=== PATIENT | female | born 1955 | race Two or more races ===

== ENCOUNTER 2022-12-07 10:57 | Emergency (ER) | payer OTHER ==
[~2022-12-07] VITALS: Ht 170.2 cm; Wt 60.2 kg
[2022-12-07 12:22] LABS: Albumin 3.2 g/dL (3.4-5.0); Calcium 9.8 mg/dL (8.5-10.1); Potassium 3.3 mmol/L (3.5-5.1)
[2022-12-07 12:23] LABS: Basophils # (auto) 0 10 ^3/uL (0-0.2); Basophils % (auto) 0.3 % (0.0-2.0); Eosinophils # (auto) 0.1 10 ^3/uL (0-0.8); Eosinophils % (auto) 1.1 % (0.0-7.0); Hematocrit 24.5 % (36.0-46.0); Hemoglobin 8.5 g/dL (12.2-16.2); Lymphocytes # (auto) 1.7 10 ^3/uL (0.4-5.4); Lymphocytes % (auto) 20.7 % (10.0-50.0); Mean Corpuscular Hgb Conc. 34.6 g/dL (32.0-36.0); Mean Corpuscular Volume 80.9 fL (80.0-100.0); Monocytes # (auto) 0.4 10 ^3/uL (0-1.3); Monocytes % (auto) 5.3 % (0.0-12.0); Neutrophils # (auto) 5.9 10 ^3/uL (1.6-8.6); Neutrophils % (auto) 72.6 % (37.0-80.0); Red Blood Cells 3.02 10^6/uL (4.0-5.20); Red Cell Distribution Width 15.8 % (11.8-14.3); White Blood Cell 8.1 10^3/uL (4.4-10.8)
[2022-12-07 12:34] LABS: BUN/Creatinine Ratio 20.3 (10.0-20.0); Bilirubin, Total 0.3 mg/dL (0.2-1.0); Total Protein 7.2 g/dL (6.4-8.2)
[2022-12-07] MEDS ORDERED: POTASSIUM EFFERVESENT TAB 25 MEQ PO ONE (13:00)
[2022-12-07 14:42] VITALS: BP 136/75
== END 2022-12-07 14:44 | disposition admitted as inpatient to this hospital (09) ==
LOC: ER 10:57
DX: D64.9 Anemia, unspecified (principal); E78.5 Hyperlipidemia, unspecified; I10 Essential (primary) hypertension; Z86.2 Personal history of diseases of the blood and blood-forming organs and certain disorders involving the immune mechanism
CPT/HCPCS: 36415; 80053; 84484; 85025; 93005

== ENCOUNTER 2023-02-14 10:08 | Inpatient (IN) | payer OTHER ==
[2023-02-14] VITALS (9 sets, daily range): BP systolic 99–138; BP diastolic 41–66; PULSE 66–88; RESP 16–33; TEMP 97.6–98.4; O2SAT 97
[~2023-02-14] VITALS: Ht 170.2 cm; Wt 59.0 kg
[2023-02-14 10:58] LABS: Basophils # (auto) 0 10 ^3/uL (0-0.2); Eosinophils # (auto) 0 10 ^3/uL (0-0.8); Hematocrit 18.7 % (36.0-46.0); Mean Corpuscular Hgb Conc. 34.1 g/dL (32.0-36.0); Monocytes # (auto) 0.3 10 ^3/uL (0-1.3); Neutrophils # (auto) 5.9 10 ^3/uL (1.6-8.6); Red Blood Cells 2.26 10^6/uL (4.0-5.20)
[2023-02-14 11:01] LABS: Basophils % (auto) 0.2 % (0.0-2.0); Eosinophils % (auto) 0.4 % (0.0-7.0); Lymphocytes # (auto) 1.8 10 ^3/uL (0.4-5.4); Lymphocytes % (auto) 22.1 % (10.0-50.0); Mean Corpuscular Hemoglobin 28.1 pg (28.0-32.0); Mean Corpuscular Volume 82.6 fL (80.0-100.0); Monocytes % (auto) 3.3 % (0.0-12.0); Red Cell Distribution Width 15.2 % (11.8-14.3)
[2023-02-14 11:19] LABS: Alanine Aminotransferase 112 U/L (7-40); Albumin 3.9 g/dL (3.2-4.8); Alkaline Phosphatase 163 U/L (46-116); Anion Gap 4.2 (5-15); Aspartate Aminotransferase 42 U/L (13-40); BUN/Creatinine Ratio 16.2 (10.0-20.0); Bilirubin, Total 0.4 mg/dL (0.2-1.0); Blood Urea Nitrogen 12 mg/dL (9-23); Calcium 9.9 mg/dL (8.5-10.1); Carbon Dioxide 25.8 mmol/L (20-30); Chloride 109 mmol/L (98-107); Glucose 105 mg/dL (74-106); Potassium 3.2 mmol/L (3.5-5.1); Sodium 139 mmol/L (136-145); Total Protein 7.5 g/dL (5.7-8.2)
[2023-02-14 11:33] LABS: Hemoglobin 6.4 g/dL (12.2-16.2)
[2023-02-14] MEDS ORDERED: POTASSIUM CHL 20 Meq TABLET PO ONE (12:00)
[2023-02-14] MEDS ORDERED: PANTOPRAZOLE 40 MG/10 ML VIAL INJ IV ONE (12:00)
[2023-02-14] MEDS ORDERED: MORPHINE SULFATE INJ 2 MG/ml SYRG IV PRN (15:00)
[2023-02-14] MEDS ORDERED: ONDANSETRON HCL 4 MG/2 ML VIAL IV PRN (15:00)
[2023-02-14] MEDS ORDERED: DOCUSATE SOD 100 MG CAP PO PRN (15:00)
[2023-02-14] MEDS: SODIUM CHLORIDE 0.9% 1,000 ML IV SCH (15:14)
[2023-02-14 16:19] LABS: Hematocrit 16.1 % (36.0-46.0)
[2023-02-14 16:49] LABS: Hemoglobin 5.6 g/dL (12.2-16.2)
[2023-02-15] VITALS: BP 145/67; PULSE 75; RESP 16; TEMP 98.5
[2023-02-15] MEDS: SODIUM CHLORIDE 0.9% 1,000 ML IV SCH ×3 (02:20→16:00)
[2023-02-15 02:24] LABS: Hematocrit 23.4 % (36.0-46.0)
[2023-02-15 06:17] LABS: Basophils # (auto) 0 10 ^3/uL (0-0.2); Basophils % (auto) 0.3 % (0.0-2.0); Eosinophils # (auto) 0.1 10 ^3/uL (0-0.8); Eosinophils % (auto) 1.6 % (0.0-7.0); Hematocrit 25.5 % (36.0-46.0); Hemoglobin 8.7 g/dL (12.2-16.2); Lymphocytes # (auto) 2.7 10 ^3/uL (0.4-5.4); Lymphocytes % (auto) 34.9 % (10.0-50.0); Mean Corpuscular Hemoglobin 29.3 pg (28.0-32.0); Mean Corpuscular Hgb Conc. 34.3 g/dL (32.0-36.0); Mean Corpuscular Volume 85.4 fL (80.0-100.0); Monocytes # (auto) 0.4 10 ^3/uL (0-1.3); Monocytes % (auto) 4.9 % (0.0-12.0); Neutrophils # (auto) 4.5 10 ^3/uL (1.6-8.6); Neutrophils % (auto) 58.3 % (37.0-80.0); Red Blood Cells 2.99 10^6/uL (4.0-5.20); Red Cell Distribution Width 14.1 % (11.8-14.3); White Blood Cell 7.6 10^3/uL (4.4-10.8)
[2023-02-15 07:36] LABS: Erythrocyte Sedimentation Rate 37 mm/hr (0-20)
[2023-02-15 07:38] LABS: Alanine Aminotransferase 100 U/L (7-40); Albumin 3.5 g/dL (3.2-4.8); Alkaline Phosphatase 147 U/L (46-116); Anion Gap 7.9 (5-15); Aspartate Aminotransferase 45 U/L (13-40); BUN/Creatinine Ratio 17.9 (10.0-20.0); Bilirubin, Total 0.4 mg/dL (0.2-1.0); Blood Urea Nitrogen 12 mg/dL (9-23); Calcium 9.3 mg/dL (8.5-10.1); Carbon Dioxide 22.1 mmol/L (20-30); Chloride 111 mmol/L (98-107); Glucose 106 mg/dL (74-106); Potassium 3.4 mmol/L (3.5-5.1); Sodium 141 mmol/L (136-145); Total Protein 6.6 g/dL (5.7-8.2)
[2023-02-15 07:40] LABS: % Iron Saturation 74.6 % (15-50)
[2023-02-15 08:00] VITALS: PULSE 76; RESP 16; O2SAT 98
[2023-02-15 10:27] VITALS: BP 161/82; PULSE 65; RESP 18; TEMP 97.8; O2SAT 99
[2023-02-15] MEDS ORDERED: ROSU1TAB14 PO (10:54)
[2023-02-15] MEDS ORDERED: PANT40T PO (10:54)
[2023-02-15] MEDS ORDERED: AMLO1TAB23 PO (10:54)
[2023-02-15] MEDS ORDERED: POTA-180 PO (10:54)
[2023-02-15] MEDS ORDERED: DEFE1TAB3 PO (10:54)
[2023-02-15] MEDS ORDERED: LISI10TA34 PO (10:54)
[2023-02-15] MEDS ORDERED: TIZA-326 PO (10:54)
[2023-02-15] MEDS ORDERED: POTASSIUM CHL 20 Meq TABLET PO ONE (11:45)
[2023-02-15 12:58] VITALS: BP 147/81; PULSE 67; RESP 16; TEMP 98.4; O2SAT 99
[2023-02-15 16:08] VITALS: TEMP 36.9
[2023-02-15 23:37] LABS: Ferritin > 1650.0 ng/mL (10-291)
[2023-02-15 23:53] LABS: Folate (Folic Acid) 3.35 ng/mL (>5.38)
[2023-02-17 07:06] LABS: Thyroxine (T4) 6.9 ug/dL (4.5-12.0)
== END 2023-02-15 17:25 | disposition home or self-care (01) | DRG 812 ==
LOC: ER 10:08 → TELE 15:02 → TELE-WESTW 02-15 10:19
PROVIDERS: ADMIT Nurse Practitioner Family; ATTEND Nurse Practitioner Family
PROC: 30233N1 Transfusion of Nonautologous Red Blood Cells into Peripheral Vein, Percutaneous Approach (ICD-10-PCS; principal; 2023-02-14)
DX: D62 Acute posthemorrhagic anemia (principal); E78.00 Pure hypercholesterolemia, unspecified; E87.6 Hypokalemia; F17.200 Nicotine dependence, unspecified, uncomplicated; I10 Essential (primary) hypertension; R74.01 Elevation of levels of liver transaminase levels; Z71.6 Tobacco abuse counseling; Z90.710 Acquired absence of both cervix and uterus; Z85.79 Personal history of other malignant neoplasms of lymphoid, hematopoietic and related tissues
CPT/HCPCS: 36415; 36430; 71045; 80053; 82607; 82728; 82746; 82962; 83010; 83540; 83550; 83615; 84436; 84443; 85014; 85018; 85025; 85045; 85652; 86850; 86880; 86900; 86901; 86920; 87081; 93005; 96374; 99291; C9113; G0378; J1642

== ENCOUNTER 2023-03-15 13:13 | Inpatient (IN) | payer OTHER ==
[2023-03-15] VITALS (8 sets, daily range): BP systolic 135–144; BP diastolic 64–78; PULSE 81–90; RESP 14–24; TEMP 97.8–98.2; O2SAT 96–99
[~2023-03-15] VITALS: Ht 170.2 cm; Wt 57.9 kg
[~2023-03-15 13:13] MED LIST: AMLO1TAB23 PO; DEFE1TAB3 PO; LISI10TA34 PO; PANT40T PO; POTA-180 PO; ROSU1TAB14 PO; TIZA-326 PO
[2023-03-15 14:45] LABS: Basophils # (auto) 0 10 ^3/uL (0-0.2); Monocytes # (auto) 0.5 10 ^3/uL (0-1.3); Neutrophils # (auto) 6.1 10 ^3/uL (1.6-8.6); Red Blood Cells 2.08 10^6/uL (4.0-5.20); Red Cell Distribution Width 14.4 % (11.8-14.3)
[2023-03-15 14:46] LABS: Basophils % (auto) 0.2 % (0.0-2.0); Eosinophils # (auto) 0.2 10 ^3/uL (0-0.8); Eosinophils % (auto) 1.6 % (0.0-7.0); Hematocrit 17.6 % (36.0-46.0); Lymphocytes % (auto) 30.8 % (10.0-50.0); Mean Corpuscular Hemoglobin 28.8 pg (28.0-32.0); Mean Corpuscular Hgb Conc. 34.1 g/dL (32.0-36.0); Mean Corpuscular Volume 84.5 fL (80.0-100.0); Monocytes % (auto) 5.3 % (0.0-12.0); Neutrophils % (auto) 62.1 % (37.0-80.0); White Blood Cell 9.9 10^3/uL (4.4-10.8)
[2023-03-15 15:04] LABS: Alanine Aminotransferase 83 U/L (7-40); Alkaline Phosphatase 160 U/L (46-116); Anion Gap 5 (5-15); Aspartate Aminotransferase 35 U/L (13-40); BUN/Creatinine Ratio 11.1 (10.0-20.0); Bilirubin, Total 0.2 mg/dL (0.2-1.0); Blood Urea Nitrogen 8 mg/dL (9-23); Calcium 10.4 mg/dL (8.7-10.4); Carbon Dioxide 27 mmol/L (20-30); Chloride 108 mmol/L (98-107); Glucose 102 mg/dL (74-106); Lipase 42 U/L (12-53); Magnesium 1.6 mg/dL (1.6-2.6); Potassium 3.5 mmol/L (3.5-5.1); Sodium 140 mmol/L (136-145); Total Protein 7.5 g/dL (5.7-8.2)
[2023-03-15 15:06] LABS: Urine Bacteria FEW /hpf (None Seen); Urine Blood Negative /uL (Negative); Urine Clarity HAZY (Clear); Urine Color Yellow (Yellow); Urine Mucus FEW (None Seen); Urine Protein, UAD 2+ (Negative); Urine Specific Gravity 1.013 (1.001-1.035); Urine Urobilinogen Normal (Negative); Urine WBC 3 /hpf (0 - 5); Urine pH 6.5 (5.0-8.0)
[2023-03-15 15:06] LABS: INR 1.04 (0.9-1.15); Partial Thromboplastin Time 24.2 SEC (24.5-34.5); Prothrombin Time 10.9 sec (9.3-11.8)
[2023-03-15] MEDS ORDERED: IOHEXOL 350 MG/ML 100ML IJ ONE (15:50)
[2023-03-15] MEDS ORDERED: MORPHINE SULFATE INJ 2 MG/ml SYRG IV PRN (17:30)
[2023-03-15] MEDS ORDERED: ONDANSETRON HCL 4 MG/2 ML VIAL IV PRN (17:30)
[2023-03-15] MEDS ORDERED: DOCUSATE SOD 100 MG CAP PO PRN (17:30)
[2023-03-15] MEDS ORDERED: ATORVASTATIN 20 MG TAB PO SCH (22:00)
[2023-03-15] MEDS: TIZANIDINE HYDROCHLORIDE 2 MG PO SCH (22:00)
[2023-03-15] MEDS: ENOXAPARIN SOD 100 MG/1 ML SYRINGE SC SCH (22:00)
[2023-03-15 23:30] LABS: Hematocrit 19.8 % (36.0-46.0)
[2023-03-15 23:38] LABS: Hemoglobin 6.8 g/dL (12.2-16.2)
[2023-03-16] VITALS (9 sets, daily range): BP systolic 121–145; BP diastolic 57–80; PULSE 74–86; RESP 12–20; TEMP 97.9–98.5; O2SAT 96–99
[2023-03-16 06:16] LABS: Basophils # (auto) 0 10 ^3/uL (0-0.2); Monocytes # (auto) 0.5 10 ^3/uL (0-1.3)
[2023-03-16 06:20] LABS: Basophils % (auto) 0.2 % (0.0-2.0); Eosinophils # (auto) 0.1 10 ^3/uL (0-0.8); Eosinophils % (auto) 1.6 % (0.0-7.0); Hematocrit 23.2 % (36.0-46.0); Lymphocytes # (auto) 2.9 10 ^3/uL (0.4-5.4); Lymphocytes % (auto) 34.3 % (10.0-50.0); Mean Corpuscular Hemoglobin 29.4 pg (28.0-32.0); Mean Corpuscular Hgb Conc. 34.7 g/dL (32.0-36.0); Mean Corpuscular Volume 84.9 fL (80.0-100.0); Monocytes % (auto) 6.2 % (0.0-12.0); Neutrophils # (auto) 4.8 10 ^3/uL (1.6-8.6); Neutrophils % (auto) 57.7 % (37.0-80.0); Red Blood Cells 2.73 10^6/uL (4.0-5.20); Red Cell Distribution Width 14.2 % (11.8-14.3); White Blood Cell 8.3 10^3/uL (4.4-10.8)
[2023-03-16] MEDS: SODIUM CHLORIDE 0.9% 1,000 ML IV SCH ×2 (06:31→10:09)
[2023-03-16 06:39] LABS: Alanine Aminotransferase 67 U/L (7-40); Alkaline Phosphatase 131 U/L (46-116); Anion Gap 4 (5-15); BUN/Creatinine Ratio 9.5 (10.0-20.0); Blood Urea Nitrogen 6 mg/dL (9-23); Calcium 9.9 mg/dL (8.7-10.4); Carbon Dioxide 27 mmol/L (20-30); Chloride 110 mmol/L (98-107); Glucose 105 mg/dL (74-106); Potassium 3.3 mmol/L (3.5-5.1); Sodium 141 mmol/L (136-145)
[2023-03-16 06:40] LABS: Albumin 3.2 g/dL (3.2-4.8); Aspartate Aminotransferase 30 U/L (13-40); Bilirubin, Total 0.3 mg/dL (0.2-1.0); Total Protein 6.1 g/dL (5.7-8.2)
[2023-03-16] MEDS ORDERED: PANTOPRAZOLE 40 MG TAB PO SCH (10:00)
[2023-03-16] MEDS: ENOXAPARIN SOD 100 MG/1 ML SYRINGE SC SCH (10:00)
[2023-03-16] MEDS: TIZANIDINE HYDROCHLORIDE 2 MG PO SCH (10:00)
[2023-03-16] MEDS ORDERED: NICOTINE 21MG/24 HR TOPICAL PATCH TD SCH (10:00)
[2023-03-16] MEDS ORDERED: LISINOPRIL 10 MG TAB PO SCH (10:00)
[2023-03-16] MEDS ORDERED: amLODIPine BESYLATE 5 MG TAB PO SCH (10:00)
== END 2023-03-16 15:00 | disposition left against medical advice (07) | DRG 842 ==
LOC: ER 13:13 → TELE 17:29 → TELE-CENTR 21:57
PROVIDERS: ADMIT Nurse Practitioner Family; ATTEND Nurse Practitioner Family
PROC: 30233N1 Transfusion of Nonautologous Red Blood Cells into Peripheral Vein, Percutaneous Approach (ICD-10-PCS; principal; 2023-03-15)
DX: C90.00 Multiple myeloma not having achieved remission (principal); D50.0 Iron deficiency anemia secondary to blood loss (chronic); R79.89 Other specified abnormal findings of blood chemistry; I10 Essential (primary) hypertension; R74.01 Elevation of levels of liver transaminase levels; E78.00 Pure hypercholesterolemia, unspecified; Z53.29 Procedure and treatment not carried out because of patient's decision for other reasons; F17.200 Nicotine dependence, unspecified, uncomplicated; Z71.6 Tobacco abuse counseling; Z90.49 Acquired absence of other specified parts of digestive tract; Z90.710 Acquired absence of both cervix and uterus
CPT/HCPCS: 36415; 36430; 71045; 80053; 81001; 83690; 83735; 83880; 84484; 85014; 85018; 85025; 85379; 85610; 85730; 86850; 86900; 86901; 86920; 87081; 93005; G0378

== ENCOUNTER 2023-04-14 15:27 | Emergency (ER) | payer OTHER ==
[2023-04-14] VITALS (7 sets, daily range): BP systolic 129–152; BP diastolic 63–71; PULSE 78–94; RESP 14–19; TEMP 97.5–97.9; O2SAT 99–100
[~2023-04-14] VITALS: Ht 170.2 cm; Wt 59.0 kg
[2023-04-14 16:23] LABS: Basophils # (auto) 0 10 ^3/uL (0-0.2); Eosinophils # (auto) 0.1 10 ^3/uL (0-0.8); Lymphocytes # (auto) 2.5 10 ^3/uL (0.4-5.4); Monocytes # (auto) 0.4 10 ^3/uL (0-1.3)
[2023-04-14 16:24] LABS: Basophils % (auto) 0.3 % (0.0-2.0); Hematocrit 16.3 % (36.0-46.0); Lymphocytes % (auto) 25.5 % (10.0-50.0); Mean Corpuscular Hemoglobin 28.8 pg (28.0-32.0); Mean Corpuscular Hgb Conc. 34.2 g/dL (32.0-36.0); Mean Corpuscular Volume 84.4 fL (80.0-100.0); Monocytes % (auto) 3.8 % (0.0-12.0); Neutrophils # (auto) 6.7 10 ^3/uL (1.6-8.6); Neutrophils % (auto) 69.4 % (37.0-80.0); Red Blood Cells 1.93 10^6/uL (4.0-5.20); Red Cell Distribution Width 14.3 % (11.8-14.3); White Blood Cell 9.7 10^3/uL (4.4-10.8)
[2023-04-14 16:34] LABS: Hemoglobin 5.6 g/dL (12.2-16.2)
[2023-04-14 16:45] LABS: Alanine Aminotransferase 94 U/L (7-40); Albumin 3.9 g/dL (3.2-4.8); Alkaline Phosphatase 165 U/L (46-116); Anion Gap 5 (5-15); Aspartate Aminotransferase 41 U/L (13-40); BUN/Creatinine Ratio 16.7 (10.0-20.0); Bilirubin, Total 0.3 mg/dL (0.2-1.0); Blood Urea Nitrogen 11 mg/dL (9-23); Carbon Dioxide 27 mmol/L (20-30); Chloride 108 mmol/L (98-107); Glucose 103 mg/dL (74-106); Sodium 140 mmol/L (136-145); Total Protein 7.3 g/dL (5.7-8.2)
[2023-04-14 17:02] LABS: Potassium 2.9 mmol/L (3.5-5.1)
[2023-04-14 18:40] LABS: Ferritin > 1650.0 ng/mL (10-291)
[2023-04-14 18:41] LABS: Folate (Folic Acid) 7.47 ng/mL (>5.38)
[2023-04-14 19:21] LABS: % Iron Saturation 87.3 % (15-50)
[2023-04-14] MEDS ORDERED: POTASSIUM CHL 20 Meq TABLET PO ONE (22:15)
[2023-04-15] VITALS (8 sets, daily range): BP systolic 143–175; BP diastolic 70–94; PULSE 73–80; RESP 12–18; TEMP 97.4–98.2; O2SAT 95
== END 2023-04-15 08:52 | disposition left against medical advice (07) ==
LOC: ER 15:27
DX: D64.9 Anemia, unspecified (principal); C90.00 Multiple myeloma not having achieved remission; R00.0 Tachycardia, unspecified; E78.5 Hyperlipidemia, unspecified; I10 Essential (primary) hypertension; Z79.899 Other long term (current) drug therapy; Z90.710 Acquired absence of both cervix and uterus; Z90.49 Acquired absence of other specified parts of digestive tract
CPT/HCPCS: 36415; 36430; 80053; 82607; 82728; 82746; 83540; 83550; 83615; 85025; 85045; 86850; 86900; 86901; 86920; 93005; 99291; P9016

== ENCOUNTER 2023-05-07 11:39 | Inpatient (IN) | payer OTHER ==
[~2023-05-07] VITALS: Ht 170.2 cm; Wt 60.0 kg
[2023-05-07 12:49] LABS: Basophils # (auto) 0 10 ^3/uL (0-0.2); Basophils % (auto) 0.2 % (0.0-2.0); Eosinophils # (auto) 0.1 10 ^3/uL (0-0.8); Mean Corpuscular Volume 76.5 fL (80.0-100.0); Monocytes # (auto) 0.4 10 ^3/uL (0-1.3); Neutrophils # (auto) 6.6 10 ^3/uL (1.6-8.6)
[2023-05-07 12:50] LABS: Hematocrit 18.2 % (36.0-46.0); Lymphocytes # (auto) 2.1 10 ^3/uL (0.4-5.4); Lymphocytes % (auto) 22.4 % (10.0-50.0); Mean Corpuscular Hemoglobin 25.6 pg (28.0-32.0); Mean Corpuscular Hgb Conc. 33.5 g/dL (32.0-36.0); Monocytes % (auto) 4.9 % (0.0-12.0); Neutrophils % (auto) 71.5 % (37.0-80.0); Nucleated Red Blood Cells % 0.1 %; Red Blood Cells 2.38 10^6/uL (4.0-5.20); White Blood Cell 9.2 10^3/uL (4.4-10.8)
[2023-05-07 12:53] LABS: Red Cell Distribution Width 21.2 % (11.8-14.3)
[2023-05-07 12:56] LABS: Hemoglobin 6.1 g/dL (12.2-16.2)
[2023-05-07 13:02] LABS: INR 1.11 (0.9-1.15); Partial Thromboplastin Time 24.5 SEC (24.5-34.5); Prothrombin Time 11.6 sec (9.3-11.8)
[2023-05-07 13:09] LABS: Alanine Aminotransferase 113 U/L (7-40); Albumin 3.7 g/dL (3.2-4.8); Alkaline Phosphatase 135 U/L (46-116); Anion Gap 6 (5-15); Aspartate Aminotransferase 51 U/L (13-40); BUN/Creatinine Ratio 16.9 (10.0-20.0); Bilirubin, Total 0.3 mg/dL (0.2-1.0); Blood Urea Nitrogen 12 mg/dL (9-23); Calcium 10.1 mg/dL (8.7-10.4); Carbon Dioxide 29 mmol/L (20-30); Chloride 105 mmol/L (98-107); Glucose 130 mg/dL (74-106); Potassium 2.9 mmol/L (3.5-5.1); Sodium 140 mmol/L (136-145)
[2023-05-07 13:10] LABS: Total Protein 6.8 g/dL (5.7-8.2)
[2023-05-07 13:23] LABS: Platelet Estimate Adequate
[2023-05-07 13:24] LABS: Anisocytosis Slight
[2023-05-07] MEDS ORDERED: ONDANSETRON HCL 4 MG/2 ML VIAL IV PRN (14:00)
[2023-05-07] MEDS ORDERED: HYDROcodone-ACET 5/325MG TAB PO PRN (14:00)
[2023-05-07] MEDS ORDERED: MORPHINE SULFATE INJ 2 MG/ml SYRG IV PRN ×2 (14:00)
[2023-05-07] MEDS ORDERED: NITROGLYCERIN 0.4 MG SL TAB SL PRN (14:00)
[2023-05-07] MEDS ORDERED: ACETAMINOPHEN 325 MG TAB PO PRN (14:00)
[2023-05-07] MEDS: POTASSIUM CHL 20 Meq TABLET PO SCH (14:15)
[2023-05-07] MEDS ORDERED: POTASSIUM CHL 20 Meq TABLET PO ONE (14:15)
[2023-05-07 14:54] LABS: Ferritin > 1650.0 ng/mL (10-291)
[2023-05-07] MEDS: amLODIPine BESYLATE 5 MG TAB PO SCH (15:04)
[2023-05-07 15:10] LABS: % Iron Saturation 76.9 % (15-50)
[2023-05-07 22:53] LABS: Erythrocyte Sedimentation Rate 92 mm/hr (0-20)
[2023-05-08] VITALS (11 sets, daily range): BP systolic 115–149; BP diastolic 51–75; PULSE 66–95; RESP 14–18; TEMP 97.3–99.1; O2SAT 92–97
[2023-05-08 02:12] LABS: Urine Amorphous Crystal FEW /hpf (None Seen); Urine Bacteria NONE SEEN /hpf (None Seen); Urine Blood Negative /uL (Negative); Urine Clarity HAZY (Clear); Urine Color Yellow (Yellow); Urine Hyaline Cast FEW /lpf (0 - 2); Urine Mucus FEW (None Seen); Urine Protein, UAD 2+ (Negative); Urine Specific Gravity 1.023 (1.001-1.035); Urine WBC 24 /hpf (0 - 5)
[2023-05-08 06:44] LABS: Alanine Aminotransferase 102 U/L (7-40); Alkaline Phosphatase 119 U/L (46-116); Calcium 10.3 mg/dL (8.5-10.1); Carbon Dioxide 29 mmol/L (20-30); Chloride 107 mmol/L (98-107)
[2023-05-08 06:45] LABS: Albumin 3.3 g/dL (3.2-4.8); Anion Gap 4 (5-15); Aspartate Aminotransferase 43 U/L (13-40); BUN/Creatinine Ratio 20.9 (10.0-20.0); Bilirubin, Total 0.2 mg/dL (0.2-1.0); Blood Urea Nitrogen 14 mg/dL (9-23); Glucose 108 mg/dL (74-106); Potassium 3.3 mmol/L (3.5-5.1); Sodium 140 mmol/L (136-145); Total Protein 6.2 g/dL (5.7-8.2)
[2023-05-08] MEDS: POTASSIUM CHL 20 Meq TABLET PO SCH (09:56)
[2023-05-08] MEDS: amLODIPine BESYLATE 5 MG TAB PO SCH (09:58)
[2023-05-08] MEDS ORDERED: LISINOPRIL 10 MG TAB PO SCH (10:00)
[2023-05-08] MEDS ORDERED: PANTOPRAZOLE 40 MG TAB PO SCH (10:00)
[2023-05-08 11:11] LABS: Basophils # (auto) 0 10 ^3/uL (0-0.2); Basophils % (auto) 0.2 % (0.0-2.0); Eosinophils # (auto) 0.1 10 ^3/uL (0-0.8); Hematocrit 22.9 % (36.0-46.0); Hemoglobin 7.6 g/dL (12.2-16.2); Lymphocytes # (auto) 2.1 10 ^3/uL (0.4-5.4); Lymphocytes % (auto) 25.6 % (10.0-50.0); Mean Corpuscular Hemoglobin 26.9 pg (28.0-32.0); Mean Corpuscular Hgb Conc. 33.4 g/dL (32.0-36.0); Mean Corpuscular Volume 80.6 fL (80.0-100.0); Monocytes # (auto) 0.4 10 ^3/uL (0-1.3); Monocytes % (auto) 4.7 % (0.0-12.0); Neutrophils # (auto) 5.6 10 ^3/uL (1.6-8.6); Neutrophils % (auto) 68.5 % (37.0-80.0); Red Blood Cells 2.84 10^6/uL (4.0-5.20); Red Cell Distribution Width 19.7 % (11.8-14.3); White Blood Cell 8.2 10^3/uL (4.4-10.8)
[2023-05-09 08:06] LABS: Immunoglobulin A 33 mg/dL (87-352); Immunoglobulin G, Serum 2319 mg/dL (586-1602); Immunoglobulin M 21 mg/dL (26-217)
[2023-05-09 12:07] LABS: Albumin 3.3 g/dL (2.9-4.4); Alpha-1-Globulin 0.3 g/dL (0.0-0.4); Alpha-2-Globulin 0.5 g/dL (0.4-1.0); Gamma Globulin 1.7 g/dL (0.4-1.8); Globulin Total 3.3 g/dL (2.2-3.9); Protein Total Serum 6.6 g/dL (6.0-8.5)
[2023-05-10 08:07] LABS: Kappa Lite Chain Free Serum 29.3 mg/L (3.3-19.4)
[2023-05-10 20:06] LABS: Beta-2-Microglobulin 3.6 mg/L (0.6-2.4)
== END 2023-05-08 15:40 | disposition left against medical advice (07) | DRG 812 ==
LOC: ER 11:39 → OVERFLOW 14:01 → TELE-CENTR 23:49
PROVIDERS: ADMIT Internal Medicine; ATTEND Internal Medicine
PROC: 30233N1 Transfusion of Nonautologous Red Blood Cells into Peripheral Vein, Percutaneous Approach (ICD-10-PCS; principal; 2023-05-08)
DX: D64.9 Anemia, unspecified (principal); I10 Essential (primary) hypertension; Z53.29 Procedure and treatment not carried out because of patient's decision for other reasons; E87.6 Hypokalemia; Z90.710 Acquired absence of both cervix and uterus; Z85.79 Personal history of other malignant neoplasms of lymphoid, hematopoietic and related tissues
CPT/HCPCS: 36415; 71045; 80053; 81001; 82232; 82607; 82728; 82746; 82784; 83010; 83540; 83550; 83615; 83880; 83883; 84132; 84155; 84165; 84484; 85025; 85045; 85610; 85652; 85730; 86334; 86850; 86900; 86901; 86920; 87081; 93005; G0378

== ENCOUNTER 2023-07-18 13:53 | Inpatient (IN) | payer OTHER ==
[2023-07-18] VITALS (7 sets, daily range): BP systolic 137–183; BP diastolic 60–90; PULSE 84–97; RESP 15–21; TEMP 98.1–98.2; O2SAT 98
[~2023-07-18] VITALS: Ht 170.2 cm; Wt 59.1 kg
[~2023-07-18 13:53] MED LIST changes: +LEV25T PO; -TIZA-326 PO
[2023-07-18 14:49] LABS: Basophils # (auto) 0 10 ^3/uL (0-0.2); Eosinophils # (auto) 0 10 ^3/uL (0-0.8); Eosinophils % (auto) 0.3 % (0.0-7.0); Lymphocytes # (auto) 2.4 10 ^3/uL (0.4-5.4); Lymphocytes % (auto) 22.2 % (10.0-50.0); Monocytes # (auto) 0.3 10 ^3/uL (0-1.3); Monocytes % (auto) 2.5 % (0.0-12.0); Neutrophils # (auto) 8.2 10 ^3/uL (1.6-8.6)
[2023-07-18 14:50] LABS: Basophils % (auto) 0.2 % (0.0-2.0); Hematocrit 12.3 % (36.0-46.0); Mean Corpuscular Hemoglobin 29.3 pg (28.0-32.0); Mean Corpuscular Volume 83.8 fL (80.0-100.0); Neutrophils % (auto) 74.8 % (37.0-80.0); Red Blood Cells 1.47 10^6/uL (4.0-5.20); Red Cell Distribution Width 17.9 % (11.8-14.3)
[2023-07-18 15:02] LABS: INR 1.06 (0.9-1.15); Partial Thromboplastin Time 23.1 SEC (24.5-34.5); Prothrombin Time 11.1 sec (9.3-11.8)
[2023-07-18 15:05] LABS: Alanine Aminotransferase 97 U/L (7-40); Alkaline Phosphatase 166 U/L (46-116); Anion Gap 9 (5-15); Aspartate Aminotransferase 48 U/L (13-40); BUN/Creatinine Ratio 22.4 (10.0-20.0); Bilirubin, Total 0.3 mg/dL (0.2-1.0); Blood Urea Nitrogen 17 mg/dL (9-23); Calcium 10.2 mg/dL (8.5-10.1); Carbon Dioxide 23 mmol/L (20-30); Chloride 108 mmol/L (98-107); Glucose 107 mg/dL (74-106); Potassium 3.3 mmol/L (3.5-5.1); Sodium 140 mmol/L (136-145); Total Protein 7.6 g/dL (5.7-8.2)
[2023-07-18 15:08] LABS: Hemoglobin 4.3 g/dL (12.2-16.2)
[2023-07-18 16:54] LABS: Anisocytosis Slight; Platelet Estimate Decreased
[2023-07-18 16:55] LABS: Hypochromia Slight
[2023-07-18] MEDS ORDERED: POTASSIUM EFFERVESENT TAB 25 MEQ PO ONE (18:00)
[2023-07-18] MEDS ORDERED: ONDANSETRON HCL 4 MG/2 ML VIAL IV PRN (19:00)
[2023-07-18] MEDS: SODIUM CHLORIDE 0.9% 1,000 ML IV SCH (19:00)
[2023-07-18] MEDS ORDERED: DOCUSATE SOD 100 MG CAP PO PRN (19:00)
[2023-07-18] MEDS ORDERED: MORPHINE SULFATE INJ 2 MG/ml SYRG IV PRN ×2 (19:00→19:30)
[2023-07-19] VITALS (11 sets, daily range): BP systolic 132–171; BP diastolic 66–80; PULSE 77–92; RESP 16–18; TEMP 37.1–37.2; O2SAT 99–100
[2023-07-19] MEDS ORDERED: hydrALAZINE HCL 20 MG/ML VL IV PRN
[2023-07-19 02:54] LABS: Basophils # (auto) 0 10 ^3/uL (0-0.2); Eosinophils # (auto) 0.1 10 ^3/uL (0-0.8); Lymphocytes # (auto) 2.7 10 ^3/uL (0.4-5.4); Monocytes # (auto) 0.4 10 ^3/uL (0-1.3); Red Cell Distribution Width 15.1 % (11.8-14.3)
[2023-07-19 02:55] LABS: Basophils % (auto) 0.3 % (0.0-2.0); Eosinophils % (auto) 1.3 % (0.0-7.0); Hematocrit 20.6 % (36.0-46.0); Lymphocytes % (auto) 30.6 % (10.0-50.0); Mean Corpuscular Hemoglobin 28.1 pg (28.0-32.0); Mean Corpuscular Hgb Conc. 33.1 g/dL (32.0-36.0); Mean Corpuscular Volume 84.8 fL (80.0-100.0); Monocytes % (auto) 5.2 % (0.0-12.0); Neutrophils # (auto) 5.5 10 ^3/uL (1.6-8.6); Neutrophils % (auto) 62.6 % (37.0-80.0); Red Blood Cells 2.42 10^6/uL (4.0-5.20); White Blood Cell 8.7 10^3/uL (4.4-10.8)
[2023-07-19 02:57] LABS: Hemoglobin 6.8 g/dL (12.2-16.2)
[2023-07-19 03:09] LABS: Alanine Aminotransferase 76 U/L (7-40); Alkaline Phosphatase 130 U/L (46-116); Anion Gap 4 (5-15); Aspartate Aminotransferase 40 U/L (13-40); BUN/Creatinine Ratio 21.5 (10.0-20.0); Blood Urea Nitrogen 14 mg/dL (9-23); Calcium 9.1 mg/dL (8.7-10.4); Carbon Dioxide 26 mmol/L (20-30); Chloride 111 mmol/L (98-107); Glucose 106 mg/dL (74-106); Potassium 3.6 mmol/L (3.5-5.1); Sodium 141 mmol/L (136-145)
[2023-07-19 03:10] LABS: Albumin 3.3 g/dL (3.2-4.8); Bilirubin, Total 0.2 mg/dL (0.2-1.0); Total Protein 6.4 g/dL (5.7-8.2)
[2023-07-19 04:52] LABS: Urine Amorphous Crystal FEW /hpf (None Seen); Urine Bacteria NONE SEEN /hpf (None Seen); Urine Blood Negative /uL (Negative); Urine Clarity Clear (Clear); Urine Protein, UAD 1+ (Negative); Urine Specific Gravity 1.011 (1.001-1.035); Urine Urobilinogen Normal (Negative); Urine WBC 1 /hpf (0 - 5); Urine pH 7.5 (5.0-8.0)
[2023-07-19 04:55] LABS: Urine Color STRAW (Yellow)
[2023-07-19] MEDS: SODIUM CHLORIDE 0.9% 1,000 ML IV SCH (09:45)
[2023-07-19] MEDS ORDERED: PANTOPRAZOLE 40 MG TAB PO SCH (10:00)
[2023-07-19] MEDS ORDERED: LEVOTHYROXINE SODIUM 25 MCG TAB PO SCH (10:00)
[2023-07-19] MEDS ORDERED: LISINOPRIL 10 MG TAB PO SCH (10:00)
[2023-07-19] MEDS ORDERED: amLODIPine BESYLATE 5 MG TAB PO SCH (10:00)
[2023-07-19 14:05] LABS: Hematocrit 25.8 % (36.0-46.0); Hemoglobin 8.6 g/dL (12.2-16.2)
== END 2023-07-19 15:02 | disposition home or self-care (01) | DRG 842 ==
LOC: ER 13:53 → OVERFLOW 18:49 → CENTRAL 21:57
PROVIDERS: ADMIT Nurse Practitioner Family; ATTEND Nurse Practitioner Family
PROC: 30233N1 Transfusion of Nonautologous Red Blood Cells into Peripheral Vein, Percutaneous Approach (ICD-10-PCS; principal; 2023-07-18)
DX: C90.00 Multiple myeloma not having achieved remission (principal); E07.9 Disorder of thyroid, unspecified; E87.5 Hyperkalemia; I10 Essential (primary) hypertension; E11.9 Type 2 diabetes mellitus without complications; D63.0 Anemia in neoplastic disease; R74.01 Elevation of levels of liver transaminase levels; E03.9 Hypothyroidism, unspecified; F17.200 Nicotine dependence, unspecified, uncomplicated; Z53.29 Procedure and treatment not carried out because of patient's decision for other reasons; E78.5 Hyperlipidemia, unspecified; Z90.710 Acquired absence of both cervix and uterus; Z79.899 Other long term (current) drug therapy; Z90.49 Acquired absence of other specified parts of digestive tract; D69.59 Other secondary thrombocytopenia
CPT/HCPCS: 36415; 36430; 80053; 81001; 85014; 85018; 85025; 85610; 85730; 86850; 86900; 86901; 86920; 99291; G0378

== ENCOUNTER 2023-08-09 12:30 | Emergency (ER) | payer OTHER ==
[~2023-08-09] VITALS: Ht 170.2 cm; Wt 52.2 kg
[2023-08-09] VITALS (11 sets, daily range): BP systolic 140–171; BP diastolic 64–79; PULSE 76–94; RESP 11–21; TEMP 98–99.6; O2SAT 92–95
[2023-08-09] MEDS: SODIUM CHLORIDE 0.9% 1,000 ML IV ONE (13:56)
[2023-08-09 14:49] LABS: Basophils # (auto) 0 10 ^3/uL (0-0.2); Eosinophils # (auto) 0.1 10 ^3/uL (0-0.8); Hematocrit 19.3 % (36.0-46.0); Lymphocytes # (auto) 2.2 10 ^3/uL (0.4-5.4); Monocytes # (auto) 0.5 10 ^3/uL (0-1.3)
[2023-08-09 14:50] LABS: Basophils % (auto) 0.2 % (0.0-2.0); Eosinophils % (auto) 1.6 % (0.0-7.0); Lymphocytes % (auto) 24.2 % (10.0-50.0); Mean Corpuscular Hemoglobin 28.5 pg (28.0-32.0); Mean Corpuscular Hgb Conc. 33.4 g/dL (32.0-36.0); Mean Corpuscular Volume 85.3 fL (80.0-100.0); Monocytes % (auto) 5.7 % (0.0-12.0); Neutrophils # (auto) 6.2 10 ^3/uL (1.6-8.6); Neutrophils % (auto) 68.3 % (37.0-80.0); Red Blood Cells 2.27 10^6/uL (4.0-5.20); Red Cell Distribution Width 15.4 % (11.8-14.3)
[2023-08-09 14:54] LABS: Hemoglobin 6.4 g/dL (12.2-16.2)
[2023-08-09 15:05] LABS: INR 1.06 (0.9-1.15); Partial Thromboplastin Time 25.9 SEC (24.5-34.5); Prothrombin Time 11.1 sec (9.3-11.8)
[2023-08-09 15:08] LABS: Alanine Aminotransferase 83 U/L (7-40); Albumin 3.6 g/dL (3.2-4.8); Alkaline Phosphatase 150 U/L (46-116); Anion Gap 3 (5-15); Aspartate Aminotransferase 39 U/L (13-40); BUN/Creatinine Ratio 20.3 (10.0-20.0); Blood Urea Nitrogen 12 mg/dL (9-23); Calcium 9.6 mg/dL (8.7-10.4); Carbon Dioxide 27 mmol/L (20-30); Chloride 111 mmol/L (98-107); Glucose 111 mg/dL (74-106); Magnesium 1.8 mg/dL (1.6-2.6); Potassium 3.3 mmol/L (3.5-5.1); Sodium 141 mmol/L (136-145)
[2023-08-09 15:09] LABS: Bilirubin, Total 0.3 mg/dL (0.2-1.0); Total Protein 7.1 g/dL (5.7-8.2)
[2023-08-09 15:19] LABS: Anisocytosis Slight; Platelet Estimate Adequate
[2023-08-09] MEDS ORDERED: PRED20TA2 PO (16:55)
[2023-08-10 01:14] LABS: Hematocrit 24.9 % (36.0-46.0); Hemoglobin 8.7 g/dL (12.2-16.2)
[2023-08-10 08:35] VITALS: PULSE 77; RESP 18; O2SAT 96
[2023-08-10 10:24] VITALS: BP 164/80; PULSE 85; RESP 16; TEMP 98.1; O2SAT 96
== END 2023-08-10 11:16 | disposition home or self-care (01) ==
LOC: ER 12:37
DX: J44.1 Chronic obstructive pulmonary disease with (acute) exacerbation (principal); R06.00 Dyspnea, unspecified; I10 Essential (primary) hypertension; E78.5 Hyperlipidemia, unspecified; Z90.710 Acquired absence of both cervix and uterus; Z79.899 Other long term (current) drug therapy; Z79.01 Long term (current) use of anticoagulants
CPT/HCPCS: 36415; 36430; 80053; 83735; 85014; 85018; 85025; 85610; 85730; 86850; 86900; 86901; 86920; 96360; 99285; J7030; P9016

== ENCOUNTER 2023-10-08 11:39 | Inpatient (IN) | payer OTHER ==
[~2023-10-08] VITALS: Ht 170.2 cm; Wt 56.4 kg
[~2023-10-08 11:39] MED LIST changes: +PRED20TA2 PO; -ROSU1TAB14 PO; +ROSU20TA56 PO
[2023-10-08] MEDS: SODIUM CHLORIDE 0.9% 1,000 ML IV ONE (13:00)
[2023-10-08 13:37] LABS: Basophils # (auto) 0 10 ^3/uL (0-0.2); Lymphocytes # (auto) 2.5 10 ^3/uL (0.4-5.4); Monocytes # (auto) 0.3 10 ^3/uL (0-1.3)
[2023-10-08 13:39] LABS: Basophils % (auto) 0.5 % (0.0-2.0); Eosinophils # (auto) 0 10 ^3/uL (0-0.8); Eosinophils % (auto) 0.4 % (0.0-7.0); Hematocrit 14.4 % (36.0-46.0); Lymphocytes % (auto) 23.2 % (10.0-50.0); Mean Corpuscular Hemoglobin 28.5 pg (28.0-32.0); Mean Corpuscular Hgb Conc. 33.9 g/dL (32.0-36.0); Monocytes % (auto) 2.6 % (0.0-12.0); Neutrophils # (auto) 7.8 10 ^3/uL (1.6-8.6); Neutrophils % (auto) 73.3 % (37.0-80.0); Red Blood Cells 1.71 10^6/uL (4.0-5.20); Red Cell Distribution Width 16.5 % (11.8-14.3); White Blood Cell 10.6 10^3/uL (4.4-10.8)
[2023-10-08 13:55] LABS: INR 1.13 (0.9-1.15); Partial Thromboplastin Time 24.4 SEC (24.5-34.5); Prothrombin Time 11.8 sec (9.3-11.8)
[2023-10-08 14:02] LABS: Hemoglobin 4.9 g/dL (12.2-16.2)
[2023-10-08 14:38] LABS: Alanine Aminotransferase 95 U/L (7-40); Albumin 3.7 g/dL (3.2-4.8); Alkaline Phosphatase 188 U/L (46-116); Anion Gap 7 (5-15); Aspartate Aminotransferase 45 U/L (13-40); BUN/Creatinine Ratio 24.7 (10.0-20.0); Bilirubin, Total 0.3 mg/dL (0.2-1.0); Blood Urea Nitrogen 18 mg/dL (9-23); Calcium 10.6 mg/dL (8.7-10.4); Carbon Dioxide 24 mmol/L (20-30); Chloride 110 mmol/L (98-107); Glucose 110 mg/dL (74-106); Magnesium 1.5 mg/dL (1.6-2.6); Potassium 3.2 mmol/L (3.5-5.1); Sodium 141 mmol/L (136-145); Total Protein 7.2 g/dL (5.7-8.2)
[2023-10-08] MEDS ORDERED: DOCUSATE SOD 100 MG CAP PO PRN (15:15)
[2023-10-08] MEDS ORDERED: NITROGLYCERIN 0.4 MG SL TAB SL PRN (15:15)
[2023-10-08] MEDS ORDERED: MORPHINE SULFATE INJ 2 MG/ml SYRG IV PRN (15:15)
[2023-10-08] MEDS ORDERED: ONDANSETRON HCL 4 MG/2 ML VIAL IV PRN (15:15)
[2023-10-08] MEDS ORDERED: ACETAMINOPHEN 325 MG TAB PO PRN (15:15)
[2023-10-08] MEDS ORDERED: DEXTROSE (50%) 50ML SYRG IV PRN (16:00)
[2023-10-08] MEDS: POTASSIUM EFFERVESENT TAB 25 MEQ PO ONE (16:41)
[2023-10-08] MEDS: ACCU-CHEK COMFORT CURVE STRIP VI SCH (17:35)
[2023-10-08] MEDS: InsuLIN REG 1unit/0.01ml Soln (100units/ml) SC SCH (17:38)
[2023-10-08] MEDS: MAGNESIUM SULFATE 1GM/100ML 100 ML IV SCH (19:28)
[2023-10-08] MEDS: ATORVASTATIN 20 MG TAB PO SCH (22:55)
[2023-10-09] VITALS (14 sets, daily range): BP systolic 124–156; BP diastolic 55–90; PULSE 78–94; RESP 16–20; TEMP 97.6–98.6; O2SAT 97–100
[2023-10-09 04:56] LABS: Urine Bacteria FEW /hpf (None Seen); Urine Blood Negative /uL (Negative); Urine Clarity Turbid (Clear); Urine Color Light-Yellow (Yellow); Urine Protein, UAD Negative (Negative); Urine Specific Gravity 1.011 (1.001-1.035); Urine Urobilinogen Normal (Negative); Urine WBC 2 /hpf (0 - 5); Urine pH 7.5 (5.0-9.0)
[2023-10-09 06:29] LABS: Basophils # (auto) 0 10 ^3/uL (0-0.2); Basophils % (auto) 0.5 % (0.0-2.0); Eosinophils # (auto) 0.1 10 ^3/uL (0-0.8); Lymphocytes # (auto) 2.5 10 ^3/uL (0.4-5.4); Monocytes # (auto) 0.4 10 ^3/uL (0-1.3); Nucleated Red Blood Cells % 0.1 %
[2023-10-09 06:32] LABS: Eosinophils % (auto) 1.5 % (0.0-7.0); Hematocrit 13.8 % (36.0-46.0); Lymphocytes % (auto) 30.5 % (10.0-50.0); Mean Corpuscular Hemoglobin 29.3 pg (28.0-32.0); Mean Corpuscular Hgb Conc. 33.1 g/dL (32.0-36.0); Mean Corpuscular Volume 88.6 fL (80.0-100.0); Neutrophils # (auto) 5.2 10 ^3/uL (1.6-8.6); Neutrophils % (auto) 62.5 % (37.0-80.0); Red Blood Cells 1.55 10^6/uL (4.0-5.20); Red Cell Distribution Width 17.3 % (11.8-14.3); White Blood Cell 8.3 10^3/uL (4.4-10.8)
[2023-10-09 07:35] LABS: Hemoglobin 4.6 g/dL (12.2-16.2)
[2023-10-09] MEDS: POTASSIUM CHL 20 Meq TABLET PO SCH (10:57)
[2023-10-09] MEDS: LISINOPRIL 5 MG TAB PO SCH (10:58)
[2023-10-09] MEDS: LEVOTHYROXINE SODIUM 25 MCG TAB PO SCH (10:58)
[2023-10-09] MEDS: PANTOPRAZOLE 40 MG TAB PO SCH (10:58)
[2023-10-09] MEDS: amLODIPine BESYLATE 5 MG TAB PO SCH (10:59)
[2023-10-09 13:21] LABS: Alanine Aminotransferase 98 U/L (7-40); Albumin 3.6 g/dL (3.2-4.8); Alkaline Phosphatase 182 U/L (46-116); Anion Gap 5 (5-15); Aspartate Aminotransferase 59 U/L (13-40); BUN/Creatinine Ratio 17.5 (10.0-20.0); Bilirubin, Total 0.4 mg/dL (0.2-1.0); Blood Urea Nitrogen 10 mg/dL (9-23); Calcium 9.9 mg/dL (8.5-10.1); Carbon Dioxide 25 mmol/L (20-30); Chloride 109 mmol/L (98-107); Glucose 96 mg/dL (74-106); Potassium 3.5 mmol/L (3.5-5.1); Sodium 139 mmol/L (136-145); Total Protein 7.3 g/dL (5.7-8.2)
[2023-10-09 20:06] LABS: Basophils # (auto) 0 10 ^3/uL (0-0.2); Basophils % (auto) 0.4 % (0.0-2.0); Eosinophils # (auto) 0.1 10 ^3/uL (0-0.8); Eosinophils % (auto) 1.7 % (0.0-7.0); Hematocrit 20.3 % (36.0-46.0); Lymphocytes # (auto) 2.6 10 ^3/uL (0.4-5.4); Lymphocytes % (auto) 31.4 % (10.0-50.0); Mean Corpuscular Hemoglobin 27.3 pg (28.0-32.0); Mean Corpuscular Hgb Conc. 33.2 g/dL (32.0-36.0); Monocytes # (auto) 0.4 10 ^3/uL (0-1.3); Monocytes % (auto) 5.1 % (0.0-12.0); Neutrophils % (auto) 61.4 % (37.0-80.0); Red Blood Cells 2.47 10^6/uL (4.0-5.20); White Blood Cell 8.2 10^3/uL (4.4-10.8)
[2023-10-09 20:08] LABS: Hemoglobin 6.7 g/dL (12.2-16.2)
[2023-10-10] VITALS (7 sets, daily range): BP systolic 124–155; BP diastolic 68–79; PULSE 65–75; RESP 16–20; TEMP 36.7; O2SAT 97
[2023-10-10 05:52] LABS: Basophils # (auto) 0 10 ^3/uL (0-0.2); Eosinophils # (auto) 0.2 10 ^3/uL (0-0.8); Lymphocytes # (auto) 2.6 10 ^3/uL (0.4-5.4); Mean Corpuscular Hgb Conc. 33.6 g/dL (32.0-36.0); Monocytes # (auto) 0.3 10 ^3/uL (0-1.3)
[2023-10-10 05:56] LABS: Basophils % (auto) 0.3 % (0.0-2.0); Eosinophils % (auto) 2.3 % (0.0-7.0); Hematocrit 20.2 % (36.0-46.0); Lymphocytes % (auto) 36.2 % (10.0-50.0); Mean Corpuscular Hemoglobin 27.9 pg (28.0-32.0); Mean Corpuscular Volume 83.1 fL (80.0-100.0); Monocytes % (auto) 4.7 % (0.0-12.0); Neutrophils # (auto) 4.1 10 ^3/uL (1.6-8.6); Neutrophils % (auto) 56.5 % (37.0-80.0); Nucleated Red Blood Cells % 0.1 %; Red Blood Cells 2.43 10^6/uL (4.0-5.20); Red Cell Distribution Width 17.4 % (11.8-14.3); White Blood Cell 7.2 10^3/uL (4.4-10.8)
[2023-10-10 05:58] LABS: Alanine Aminotransferase 87 U/L (7-40); Albumin 3.3 g/dL (3.2-4.8); Alkaline Phosphatase 164 U/L (46-116); Anion Gap 7 (5-15); Aspartate Aminotransferase 45 U/L (13-40); BUN/Creatinine Ratio 15.6 (10.0-20.0); Blood Urea Nitrogen 10 mg/dL (9-23); Calcium 9.8 mg/dL (8.7-10.4); Carbon Dioxide 24 mmol/L (20-30); Chloride 110 mmol/L (98-107); Glucose 97 mg/dL (74-106); Magnesium 1.5 mg/dL (1.6-2.6); Potassium 3.5 mmol/L (3.5-5.1); Sodium 141 mmol/L (136-145)
[2023-10-10 05:59] LABS: Bilirubin, Total 0.3 mg/dL (0.2-1.0); Total Protein 6.3 g/dL (5.7-8.2)
[2023-10-10 06:12] LABS: Hemoglobin 6.8 g/dL (12.2-16.2)
[2023-10-10] MEDS: FUROSEMIDE 40 MG/4 ML VIAL IV ONE (09:04)
[2023-10-10] MEDS: PANTOPRAZOLE 40 MG TAB PO SCH (09:05)
[2023-10-10] MEDS: MAGNESIUM OXIDE 400 MG TAB PO ONE (17:07)
== END 2023-10-10 18:20 | disposition home or self-care (01) | DRG 841 ==
LOC: ER 11:39 → OVERFLOW 15:11 → CENTRAL 10-09 00:05
PROVIDERS: ADMIT Nurse Practitioner Family; ATTEND Internal Medicine Geriatric Medicine
PROC: 30233N1 Transfusion of Nonautologous Red Blood Cells into Peripheral Vein, Percutaneous Approach (ICD-10-PCS; principal; 2023-10-09)
DX: C90.00 Multiple myeloma not having achieved remission (principal); Z68.1 Body mass index [BMI] 19.9 or less, adult; E87.6 Hypokalemia; I10 Essential (primary) hypertension; E78.5 Hyperlipidemia, unspecified; E03.9 Hypothyroidism, unspecified; E83.42 Hypomagnesemia; E11.9 Type 2 diabetes mellitus without complications; R63.6 Underweight; F17.210 Nicotine dependence, cigarettes, uncomplicated; Z80.3 Family history of malignant neoplasm of breast; Z90.49 Acquired absence of other specified parts of digestive tract; Z90.710 Acquired absence of both cervix and uterus; Z82.49 Family history of ischemic heart disease and other diseases of the circulatory system; Z83.42 Family history of familial hypercholesterolemia
CPT/HCPCS: 36415; 71046; 80053; 81001; 82962; 83735; 84443; 84484; 85025; 85610; 85730; 86850; 86900; 86901; 86920; 93005; 96365; G0378

== ENCOUNTER 2023-11-06 13:01 | Emergency (ER) | payer OTHER ==
[2023-11-06] VITALS (8 sets, daily range): BP systolic 121–152; BP diastolic 54–66; PULSE 81–97; RESP 10–21; TEMP 98.4–98.9; O2SAT 97
[~2023-11-06] VITALS: Ht 170.2 cm; Wt 50.0 kg
[~2023-11-06 13:01] MED LIST changes: -PANT40T PO
[2023-11-06 14:10] LABS: Basophils # (auto) 0 10 ^3/uL (0-0.2); Eosinophils # (auto) 0.1 10 ^3/uL (0-0.8); Monocytes # (auto) 0.3 10 ^3/uL (0-1.3)
[2023-11-06 14:11] LABS: Basophils % (auto) 0.2 % (0.0-2.0); Eosinophils % (auto) 1.2 % (0.0-7.0); Hematocrit 18.6 % (36.0-46.0); Lymphocytes # (auto) 2.6 10 ^3/uL (0.4-5.4); Lymphocytes % (auto) 32.7 % (10.0-50.0); Mean Corpuscular Hemoglobin 27.2 pg (28.0-32.0); Mean Corpuscular Hgb Conc. 33.4 g/dL (32.0-36.0); Mean Corpuscular Volume 81.6 fL (80.0-100.0); Monocytes % (auto) 3.7 % (0.0-12.0); Neutrophils % (auto) 62.2 % (37.0-80.0); Nucleated Red Blood Cells % 0.2 %; Red Blood Cells 2.28 10^6/uL (4.0-5.20); Red Cell Distribution Width 16.6 % (11.8-14.3)
[2023-11-06 14:13] LABS: Hemoglobin 6.2 g/dL (12.2-16.2)
[2023-11-06 14:17] LABS: Chloride 107 mmol/L (98-107); Potassium 3.8 mmol/L (3.5-5.1); Sodium 139 mmol/L (136-145)
[2023-11-06 14:18] LABS: Anion Gap 4 (5-15); Carbon Dioxide 28 mmol/L (20-30)
[2023-11-06 14:20] LABS: INR 1.05 (0.9-1.15); Partial Thromboplastin Time 22.5 SEC (24.5-34.5); Prothrombin Time 11.1 sec (9.3-11.8)
[2023-11-06 14:23] LABS: BUN/Creatinine Ratio 20.9 (10.0-20.0); Blood Urea Nitrogen 14 mg/dL (9-23); Glucose 124 mg/dL (74-106)
[2023-11-07 00:11] VITALS: BP 147/64; PULSE 87; RESP 19; O2SAT 94
== END 2023-11-07 00:10 | disposition home or self-care (01) ==
LOC: ER 13:01
DX: D64.9 Anemia, unspecified (principal); C90.00 Multiple myeloma not having achieved remission; E11.9 Type 2 diabetes mellitus without complications; E78.5 Hyperlipidemia, unspecified; I10 Essential (primary) hypertension; Z90.710 Acquired absence of both cervix and uterus
CPT/HCPCS: 36415; 36430; 80048; 85025; 85610; 85730; 86850; 86900; 86901; 86920; 99285; P9016

== ENCOUNTER 2023-12-03 13:58 | Inpatient (IN) | payer OTHER ==
[2023-12-03] VITALS (9 sets, daily range): BP systolic 138–165; BP diastolic 62–80; PULSE 78–93; RESP 11–20; TEMP 98.3–98.8; O2SAT 96–98
[~2023-12-03] VITALS: Ht 170.2 cm; Wt 55.1 kg
[2023-12-03 15:29] LABS: Basophils # (auto) 0 10 ^3/uL (0-0.2); Basophils % (auto) 0.3 % (0.0-2.0); Eosinophils # (auto) 0.1 10 ^3/uL (0-0.8); Eosinophils % (auto) 0.7 % (0.0-7.0); Lymphocytes # (auto) 2.5 10 ^3/uL (0.4-5.4); Monocytes # (auto) 0.4 10 ^3/uL (0-1.3); Red Cell Distribution Width 15.7 % (11.8-14.3)
[2023-12-03 15:32] LABS: Hematocrit 19.3 % (36.0-46.0); Lymphocytes % (auto) 27.2 % (10.0-50.0); Mean Corpuscular Hemoglobin 27.3 pg (28.0-32.0); Mean Corpuscular Hgb Conc. 33.8 g/dL (32.0-36.0); Mean Corpuscular Volume 80.6 fL (80.0-100.0); Monocytes % (auto) 4.8 % (0.0-12.0); Neutrophils # (auto) 6.2 10 ^3/uL (1.6-8.6); Red Blood Cells 2.39 10^6/uL (4.0-5.20); White Blood Cell 9.2 10^3/uL (4.4-10.8)
[2023-12-03 15:43] LABS: Hemoglobin 6.5 g/dL (12.2-16.2)
[2023-12-03 15:57] LABS: INR 1.03 (0.9-1.15); Partial Thromboplastin Time 23.4 SEC (24.5-34.5); Prothrombin Time 10.9 sec (9.3-11.8)
[2023-12-03] MEDS: SODIUM CHLORIDE 0.9% 1,000 ML IV ONE (16:00)
[2023-12-03 16:03] LABS: Alanine Aminotransferase 94 U/L (7-40); Albumin 3.8 g/dL (3.2-4.8); Alkaline Phosphatase 176 U/L (46-116); Anion Gap 1 (5-15); Aspartate Aminotransferase 39 U/L (13-40); BUN/Creatinine Ratio 19.4 (10.0-20.0); Bilirubin, Total 0.2 mg/dL (0.2-1.0); Blood Urea Nitrogen 13 mg/dL (9-23); Carbon Dioxide 28 mmol/L (20-30); Chloride 111 mmol/L (98-107); Glucose 99 mg/dL (74-106); Magnesium 1.9 mg/dL (1.6-2.6); Potassium 3.5 mmol/L (3.5-5.1); Sodium 140 mmol/L (136-145); Total Protein 7.6 g/dL (5.7-8.2)
[2023-12-03] MEDS ORDERED: NITROGLYCERIN 0.4 MG SL TAB SL PRN (17:15)
[2023-12-03] MEDS ORDERED: ACETAMINOPHEN 325 MG TAB PO PRN (17:15)
[2023-12-03] MEDS ORDERED: MORPHINE SULFATE INJ 2 MG/ml SYRG IV PRN (17:15)
[2023-12-03] MEDS: SODIUM CHLORIDE 0.9% 1,000 ML IV SCH (17:40)
[2023-12-03 18:41] LABS: Free T3 2.84 pg/mL (2.3-4.2); Free T4 (Free Thyroxine) 0.69 ng/dL (0.89-1.76)
[2023-12-03] MEDS: LEVOTHYROXINE SODIUM 25 MCG TAB PO ONE (18:45)
[2023-12-03 19:34] LABS: Platelet Estimate Adequate
[2023-12-03 19:35] LABS: Anisocytosis Slight; Nucleated Red Blood Cells % 0.1 %; Ovalocytes FEW
[2023-12-04] VITALS (9 sets, daily range): BP systolic 152–162; BP diastolic 79–97; PULSE 67–84; RESP 16–20; TEMP 98–98.6; O2SAT 93–98
[2023-12-04 01:16] LABS: Hematocrit 25.4 % (36.0-46.0); Hemoglobin 8.5 g/dL (12.2-16.2)
[2023-12-04] MEDS: LEVOTHYROXINE SODIUM 25 MCG TAB PO SCH (05:50)
[2023-12-04 07:06] LABS: Basophils # (auto) 0 10 ^3/uL (0-0.2); Basophils % (auto) 0.3 % (0.0-2.0); Eosinophils # (auto) 0.1 10 ^3/uL (0-0.8); Eosinophils % (auto) 1.3 % (0.0-7.0); Hematocrit 26.3 % (36.0-46.0); Lymphocytes # (auto) 2.4 10 ^3/uL (0.4-5.4); Lymphocytes % (auto) 27.3 % (10.0-50.0); Mean Corpuscular Hemoglobin 28.9 pg (28.0-32.0); Mean Corpuscular Hgb Conc. 34.2 g/dL (32.0-36.0); Mean Corpuscular Volume 84.7 fL (80.0-100.0); Monocytes # (auto) 0.4 10 ^3/uL (0-1.3); Monocytes % (auto) 4.6 % (0.0-12.0); Neutrophils # (auto) 5.8 10 ^3/uL (1.6-8.6); Neutrophils % (auto) 66.5 % (37.0-80.0); Nucleated Red Blood Cells % 0.1 %; Red Blood Cells 3.11 10^6/uL (4.0-5.20); Red Cell Distribution Width 15.5 % (11.8-14.3); White Blood Cell 8.7 10^3/uL (4.4-10.8)
[2023-12-04 07:09] LABS: Alanine Aminotransferase 84 U/L (7-40); Albumin 3.2 g/dL (3.2-4.8); Alkaline Phosphatase 153 U/L (46-116); Anion Gap 2 (5-15); Aspartate Aminotransferase 39 U/L (13-40); Bilirubin, Total 0.2 mg/dL (0.2-1.0); Blood Urea Nitrogen 11 mg/dL (9-23); Carbon Dioxide 27 mmol/L (20-30); Chloride 112 mmol/L (98-107); Glucose 100 mg/dL (74-106); Potassium 3.1 mmol/L (3.5-5.1); Sodium 141 mmol/L (136-145); Total Protein 6.5 g/dL (5.7-8.2)
[2023-12-04] MEDS: DEFERASIROX PO SCH (10:33)
[2023-12-04] MEDS: POTASSIUM CHL 20 Meq TABLET PO SCH (10:36)
[2023-12-04] MEDS: LISINOPRIL 5 MG TAB PO SCH (10:37)
[2023-12-04] MEDS: amLODIPine BESYLATE 5 MG TAB PO SCH (10:40)
[2023-12-04 12:58] LABS: Hematocrit 30.5 % (36.0-46.0); Hemoglobin 10.1 g/dL (12.2-16.2)
[2023-12-04 20:18] LABS: Hematocrit 32.4 % (36.0-46.0); Hemoglobin 10.8 g/dL (12.2-16.2)
[2023-12-05] VITALS (7 sets, daily range): BP systolic 146–162; BP diastolic 76–90; PULSE 76–93; RESP 17–19; TEMP 36.6; O2SAT 96–98
[2023-12-05 06:53] LABS: Basophils # (auto) 0 10 ^3/uL (0-0.2); Basophils % (auto) 0.1 % (0.0-2.0); Eosinophils # (auto) 0.1 10 ^3/uL (0-0.8); Eosinophils % (auto) 0.9 % (0.0-7.0); Hematocrit 27.9 % (36.0-46.0); Hemoglobin 9.6 g/dL (12.2-16.2); Lymphocytes # (auto) 2.2 10 ^3/uL (0.4-5.4); Lymphocytes % (auto) 25.1 % (10.0-50.0); Mean Corpuscular Hemoglobin 29.1 pg (28.0-32.0); Mean Corpuscular Hgb Conc. 34.5 g/dL (32.0-36.0); Mean Corpuscular Volume 84.2 fL (80.0-100.0); Monocytes # (auto) 0.4 10 ^3/uL (0-1.3); Monocytes % (auto) 4.3 % (0.0-12.0); Neutrophils # (auto) 6.1 10 ^3/uL (1.6-8.6); Neutrophils % (auto) 69.6 % (37.0-80.0); Red Blood Cells 3.31 10^6/uL (4.0-5.20); Red Cell Distribution Width 16.4 % (11.8-14.3); White Blood Cell 8.8 10^3/uL (4.4-10.8)
[2023-12-05 08:51] LABS: Urine Bacteria None Seen /hpf (None Seen)
[2023-12-05 09:18] LABS: Urine Blood Negative /uL (Negative); Urine Clarity Clear (Clear); Urine Color Light-Yellow (Yellow); Urine Protein, UAD 1+ (Negative); Urine Specific Gravity 1.009 (1.001-1.035); Urine Urobilinogen Normal (Negative); Urine WBC 1 /hpf (0 - 5)
== END 2023-12-05 15:56 | disposition home or self-care (01) | DRG 842 ==
LOC: ER 14:04 → TELE 17:17 → TELE-WESTW 23:36
PROVIDERS: ADMIT Nurse Practitioner Family; ATTEND Family Medicine
PROC: 30233N1 Transfusion of Nonautologous Red Blood Cells into Peripheral Vein, Percutaneous Approach (ICD-10-PCS; principal; 2023-12-03)
DX: C90.00 Multiple myeloma not having achieved remission (principal); E11.9 Type 2 diabetes mellitus without complications; E78.5 Hyperlipidemia, unspecified; I10 Essential (primary) hypertension; E03.9 Hypothyroidism, unspecified; M06.9 Rheumatoid arthritis, unspecified; Z90.710 Acquired absence of both cervix and uterus
CPT/HCPCS: 36415; 36430; 71046; 80053; 81001; 83735; 84439; 84443; 84481; 84484; 85014; 85018; 85025; 85610; 85730; 86850; 86900; 86901; 86920; 96360; 96361; G0378

== ENCOUNTER 2023-12-29 15:07 | Inpatient (IN) | payer OTHER ==
[~2023-12-29] VITALS: Ht 167.6 cm; Wt 57.1 kg
[2023-12-29 15:38] LABS: Basophils # (auto) 0 10 ^3/uL (0-0.2); Basophils % (auto) 0.2 % (0.0-2.0); Eosinophils # (auto) 0.1 10 ^3/uL (0-0.8); Mean Corpuscular Volume 84.2 fL (80.0-100.0)
[2023-12-29 15:41] LABS: Hematocrit 18.4 % (36.0-46.0); Lymphocytes # (auto) 4.5 10 ^3/uL (0.4-5.4); Lymphocytes % (auto) 43.6 % (10.0-50.0); Mean Corpuscular Hgb Conc. 34.4 g/dL (32.0-36.0); Monocytes # (auto) 0.3 10 ^3/uL (0-1.3); Monocytes % (auto) 3.2 % (0.0-12.0); Neutrophils # (auto) 5.4 10 ^3/uL (1.6-8.6); Nucleated Red Blood Cells % 0.1 %; Red Blood Cells 2.18 10^6/uL (4.0-5.20); Red Cell Distribution Width 16.9 % (11.8-14.3); White Blood Cell 10.3 10^3/uL (4.4-10.8)
[2023-12-29 15:48] LABS: Chloride 113 mmol/L (98-107); Potassium 3.5 mmol/L (3.5-5.1); Sodium 141 mmol/L (136-145)
[2023-12-29 15:49] LABS: Anion Gap 3 (5-15); Carbon Dioxide 25 mmol/L (20-30)
[2023-12-29 15:54] LABS: BUN/Creatinine Ratio 28.1 (10.0-20.0); Blood Urea Nitrogen 18 mg/dL (9-23); Glucose 114 mg/dL (74-106)
[2023-12-29 16:14] LABS: Hemoglobin 6.3 g/dL (12.2-16.2)
[2023-12-29] MEDS ORDERED: ACETAMINOPHEN 325 MG TAB PO PRN (16:30)
[2023-12-29] MEDS ORDERED: hydrALAZINE HCL 20 MG/ML VL IV PRN (16:30)
[2023-12-29] MEDS ORDERED: ONDANSETRON HCL 4 MG/2 ML VIAL IV PRN (16:30)
[2023-12-29] MEDS ORDERED: MORPHINE SULFATE INJ 2 MG/ml SYRG IV PRN (18:30)
[2023-12-29] MEDS ORDERED: NITROGLYCERIN 0.4 MG SL TAB SL PRN (18:30)
[2023-12-29 21:00] VITALS: BP 152/59; PULSE 81; RESP 19; TEMP 98.6
[2023-12-29 21:15] VITALS: BP 124/61; PULSE 79; RESP 19; TEMP 98.5
[2023-12-29 21:40] VITALS: PULSE 71; O2SAT 0
[2023-12-29] MEDS: SODIUM CHLORIDE 0.9% 1,000 ML IV SCH (21:55)
[2023-12-29 23:45] VITALS: BP 115/57; PULSE 72; RESP 19; TEMP 98
[2023-12-30] VITALS (7 sets, daily range): BP systolic 127–160; BP diastolic 62–74; PULSE 61–85; RESP 16–20; TEMP 97.6–98.8; O2SAT 79–100
[2023-12-30 06:08] LABS: Basophils # (auto) 0 10 ^3/uL (0-0.2); Basophils % (auto) 0.2 % (0.0-2.0); Eosinophils # (auto) 0.2 10 ^3/uL (0-0.8); Hematocrit 20.9 % (36.0-46.0); Hemoglobin 7.3 g/dL (12.2-16.2); Lymphocytes # (auto) 2.9 10 ^3/uL (0.4-5.4); Mean Corpuscular Hemoglobin 29.8 pg (28.0-32.0); Mean Corpuscular Hgb Conc. 34.8 g/dL (32.0-36.0); Monocytes # (auto) 0.5 10 ^3/uL (0-1.3); Red Blood Cells 2.44 10^6/uL (4.0-5.20); Red Cell Distribution Width 16.6 % (11.8-14.3)
[2023-12-30 06:14] LABS: Mean Corpuscular Volume 85.7 fL (80.0-100.0); Monocytes % (auto) 5.2 % (0.0-12.0); Neutrophils # (auto) 5.4 10 ^3/uL (1.6-8.6); Neutrophils % (auto) 60.6 % (37.0-80.0)
[2023-12-30 06:15] LABS: Alanine Aminotransferase 106 U/L (7-40); Albumin 3.1 g/dL (3.2-4.8); Alkaline Phosphatase 146 U/L (46-116); Anion Gap 4 (5-15); Aspartate Aminotransferase 41 U/L (13-40); BUN/Creatinine Ratio 26.2 (10.0-20.0); Bilirubin, Total 0.2 mg/dL (0.2-1.0); Blood Urea Nitrogen 17 mg/dL (9-23); Calcium 10.2 mg/dL (8.7-10.4); Carbon Dioxide 27 mmol/L (20-30); Chloride 112 mmol/L (98-107); Glucose 96 mg/dL (74-106); Potassium 3.3 mmol/L (3.5-5.1); Sodium 143 mmol/L (136-145); Total Protein 6.2 g/dL (5.7-8.2)
[2023-12-30] MEDS: LEVOTHYROXINE SODIUM 25 MCG TAB PO SCH (06:35)
[2023-12-30 06:47] LABS: Urine Bacteria FEW /hpf (None Seen); Urine Blood 1+ /uL (Negative); Urine Clarity Turbid (Clear); Urine Color Light-Orange (Yellow); Urine Mucus FEW (None Seen); Urine Protein, UAD 2+ (Negative); Urine Specific Gravity 1.026 (1.001-1.035); Urine Urobilinogen Normal (Negative); Urine WBC 10 /hpf (0 - 5)
[2023-12-30] MEDS ORDERED: POTASSIUM CHLORIDE 20 MEQ, LIDOCAINE 1% (LOCAL ANESTH.) 2 ML in SODIUM CHL 0.9% 100 ML IV ONE (08:30)
[2023-12-30] MEDS ORDERED: ENOXAPARIN SOD 30 MG/0.3 ML SYRINGE SC ONE (08:45)
[2023-12-30] MEDS ORDERED: hydrALAZINE HCL 20 MG/ML VL IV PRN (09:00)
[2023-12-30] MEDS ORDERED: IOHEXOL 350 MG/ML 100ML IJ ONE (09:09)
[2023-12-30 09:30] LABS: INR 1.06 (0.9-1.15); Prothrombin Time 11.2 sec (9.3-11.8)
[2023-12-30] MEDS ORDERED: LEVOTHYROXINE SODIUM 25 MCG TAB PO SCH (09:35)
[2023-12-30] MEDS: POTASSIUM EFFERVESENT TAB 25 MEQ GT ONE (09:45)
[2023-12-30] MEDS: LISINOPRIL 5 MG TAB PO SCH (10:00)
[2023-12-30] MEDS ORDERED: ENOXAPARIN SOD 30 MG/0.3 ML SYRINGE SC SCH (10:00)
[2023-12-30 10:29] LABS: Amphetamine Screen, Urine Neg (NEGATIVE)
[2023-12-30 10:31] LABS: Barbiturate Scree,Urine Neg (NEGATIVE); Benzodiazephine Screen, Urine Neg (NEGATIVE); Cannabinoid Screen, Urine Neg (NEGATIVE); Cocaine Screen, Urine Neg (NEGATIVE); Opiate Scree,Urine Neg (NEGATIVE); Phencyclidine Screen, Urine Neg (NEGATIVE)
[2023-12-30 10:54] LABS: Folate (Folic Acid) 3.98 ng/mL (>5.38)
[2023-12-30 11:04] LABS: Free T3 2.1 pg/mL (2.3-4.2); Free T4 (Free Thyroxine) 0.56 ng/dL (0.89-1.76)
[2023-12-30] MEDS ORDERED: GLUC-149 XX (11:11)
[2023-12-30] MEDS ORDERED: PANT40T PO (11:11)
[2023-12-30 11:45] LABS: INR 1.08 (0.9-1.15); Partial Thromboplastin Time 24.6 SEC (24.5-34.5); Prothrombin Time 11.4 sec (9.3-11.8)
[2023-12-30 12:19] LABS: Hematocrit 22.4 % (36.0-46.0); Hemoglobin 7.7 g/dL (12.2-16.2)
[2023-12-30] MEDS: POTASSIUM CHL 20 Meq TABLET PO SCH (12:39)
[2023-12-30] MEDS: amLODIPine BESYLATE 5 MG TAB PO SCH (12:40)
[2023-12-30] MEDS ORDERED: LORazepam 2MG/ML-1ML VIAL IV PRN (21:15)
[2023-12-30 22:11] LABS: Hematocrit 21.1 % (36.0-46.0); Hemoglobin 7.3 g/dL (12.2-16.2)
[2023-12-31 01:00] VITALS: BP 128/58; PULSE 67; RESP 20; TEMP 96.2; O2SAT 98
[2023-12-31 05:00] VITALS: BP 147/58; PULSE 65; RESP 20; TEMP 96.2; O2SAT 100
[2023-12-31 07:53] VITALS: PULSE 79; RESP 20; O2SAT 94
[2023-12-31 08:00] VITALS: PULSE 62
[2023-12-31] MEDS: DOCUSATE SOD 100 MG CAP PO PRN (09:47)
[2023-12-31] MEDS: HYDROcodone-ACET 5/325MG TAB PO PRN (09:47)
[2023-12-31 12:13] VITALS: BP 136/82; PULSE 74; RESP 18; TEMP 98.3; O2SAT 93
== END 2023-12-31 13:30 | disposition left against medical advice (07) | DRG 812 ==
LOC: ER 15:07 → TELE 18:23 → TELE-CENTR 12-30 10:07
PROVIDERS: ADMIT Nurse Practitioner Family; ATTEND Internal Medicine Nephrology
PROC: 30233N1 Transfusion of Nonautologous Red Blood Cells into Peripheral Vein, Percutaneous Approach (ICD-10-PCS; principal; 2023-12-29)
DX: D64.9 Anemia, unspecified (principal); C90.00 Multiple myeloma not having achieved remission; I65.29 Occlusion and stenosis of unspecified carotid artery; Z90.710 Acquired absence of both cervix and uterus; E78.5 Hyperlipidemia, unspecified; E11.9 Type 2 diabetes mellitus without complications; E03.9 Hypothyroidism, unspecified; F17.200 Nicotine dependence, unspecified, uncomplicated; J43.9 Emphysema, unspecified; N20.0 Calculus of kidney; I10 Essential (primary) hypertension; Z80.3 Family history of malignant neoplasm of breast; Z82.49 Family history of ischemic heart disease and other diseases of the circulatory system
CPT/HCPCS: 36415; 70450; 71045; 71275; 80048; 80053; 80307; 81001; 82607; 82746; 82962; 83735; 84439; 84443; 84481; 84484; 85014; 85018; 85025; 85379; 85610; 85730; 86850; 86900; 86901; 86920; 93005; 93306; 93886; 93970; 97163; G0378; J2001

== ENCOUNTER 2024-01-20 16:08 | Inpatient (IN) | payer OTHER ==
[~2024-01-20] VITALS: Ht 170.2 cm; Wt 53.3 kg
[~2024-01-20 16:08] MED LIST changes: +GLUC-149 XX; +PANT40T PO
[2024-01-20 16:54] LABS: Basophils # (auto) 0 10 ^3/uL (0-0.2); Monocytes # (auto) 0.4 10 ^3/uL (0-1.3); Platelet Count (auto) 148 10^3/uL (140-450); Red Blood Cells 1.77 10^6/uL (4.0-5.20); White Blood Cell 9.9 10^3/uL (4.4-10.8)
[2024-01-20 16:55] LABS: Basophils % (auto) 0.4 % (0.0-2.0); Eosinophils # (auto) 0.2 10 ^3/uL (0-0.8); Eosinophils % (auto) 1.7 % (0.0-7.0); Hematocrit 15.3 % (36.0-46.0); Lymphocytes # (auto) 2.8 10 ^3/uL (0.4-5.4); Lymphocytes % (auto) 28.7 % (10.0-50.0); Mean Corpuscular Hemoglobin 29.1 pg (28.0-32.0); Mean Corpuscular Hgb Conc. 33.8 g/dL (32.0-36.0); Mean Corpuscular Volume 86.1 fL (80.0-100.0); Monocytes % (auto) 4.3 % (0.0-12.0); Neutrophils # (auto) 6.4 10 ^3/uL (1.6-8.6); Neutrophils % (auto) 64.9 % (37.0-80.0); Nucleated Red Blood Cells % 0.1 %; Red Cell Distribution Width 16.7 % (11.8-14.3)
[2024-01-20 16:59] LABS: Hemoglobin 5.2 g/dL (12.2-16.2)
[2024-01-20 17:10] LABS: % Iron Saturation 66.2 % (15-50); Alanine Aminotransferase 154 U/L (7-40); Albumin 3.5 g/dL (3.2-4.8); Alkaline Phosphatase 159 U/L (46-116); Anion Gap 5 (5-15); Aspartate Aminotransferase 63 U/L (13-40); BUN/Creatinine Ratio 22.5 (10.0-20.0); Bilirubin, Total 0.3 mg/dL (0.2-1.0); Blood Urea Nitrogen 16 mg/dL (9-23); Calcium 9.9 mg/dL (8.7-10.4); Carbon Dioxide 26 mmol/L (20-30); Chloride 113 mmol/L (98-107); Glucose 121 mg/dL (74-106); Potassium 3.6 mmol/L (3.5-5.1); Sodium 144 mmol/L (136-145)
[2024-01-20 17:14] LABS: Folate (Folic Acid) 4.39 ng/mL (>5.38)
[2024-01-20 17:37] VITALS: PULSE 81; RESP 14; O2SAT 100
[2024-01-20] MEDS ORDERED: DOCUSATE SOD 100 MG CAP PO PRN (18:00)
[2024-01-20] MEDS ORDERED: ONDANSETRON HCL 4 MG/2 ML VIAL IV PRN (18:00)
[2024-01-20] MEDS ORDERED: DEXTROSE (50%) 50ML SYRG IV PRN (18:00)
[2024-01-20] MEDS ORDERED: IBUPROFEN 600 MG TAB PO PRN (18:00)
[2024-01-20] MEDS ORDERED: HYDROcodone-ACET 5/325MG TAB PO PRN (18:00)
[2024-01-20 18:01] LABS: Ferritin > 3300.0 ng/mL (10-291)
[2024-01-20] MEDS ORDERED: NITROGLYCERIN 0.4 MG SL TAB SL PRN (18:45)
[2024-01-20] MEDS ORDERED: MORPHINE SULFATE INJ 2 MG/ml SYRG IV PRN (18:45)
[2024-01-20 19:45] VITALS: PULSE 90; RESP 14; O2SAT 97
[2024-01-20 20:00] VITALS: PULSE 92; RESP 18; O2SAT 98
[2024-01-20 20:49] VITALS: BP 135/71; PULSE 88; RESP 13; TEMP 98.8
[2024-01-20] MEDS: ACCU-CHEK COMFORT CURVE STRIP VI SCH (22:00)
[2024-01-20] MEDS: InsuLIN REG 1unit/0.01ml Soln (100units/ml) SC SCH (22:00)
[2024-01-20 22:45] VITALS: PULSE 80; RESP 17; O2SAT 100
[2024-01-20 23:55] VITALS: BP 133/73; PULSE 82; RESP 18; TEMP 98.4
[2024-01-21] VITALS (12 sets, daily range): BP systolic 133–176; BP diastolic 63–94; PULSE 61–92; RESP 14–20; TEMP 97.8–98.6; O2SAT 96–98
[2024-01-21] MEDS: LEVOTHYROXINE SODIUM 25 MCG TAB PO SCH (06:27)
[2024-01-21 06:46] LABS: Alanine Aminotransferase 149 U/L (7-40); Alkaline Phosphatase 143 U/L (46-116); Anion Gap 5 (5-15); BUN/Creatinine Ratio 24.6 (10.0-20.0); Basophils # (auto) 0 10 ^3/uL (0-0.2); Basophils % (auto) 0.3 % (0.0-2.0); Blood Urea Nitrogen 14 mg/dL (9-23); Calcium 9.8 mg/dL (8.7-10.4); Carbon Dioxide 25 mmol/L (20-30); Chloride 111 mmol/L (98-107); Glucose 90 mg/dL (74-106); Monocytes # (auto) 0.3 10 ^3/uL (0-1.3); Neutrophils # (auto) 4.8 10 ^3/uL (1.6-8.6); Potassium 3.5 mmol/L (3.5-5.1); Red Blood Cells 2.46 10^6/uL (4.0-5.20); Sodium 141 mmol/L (136-145)
[2024-01-21 06:48] LABS: Aspartate Aminotransferase 69 U/L (13-40); Eosinophils # (auto) 0.1 10 ^3/uL (0-0.8); Eosinophils % (auto) 1.8 % (0.0-7.0); Hematocrit 20.8 % (36.0-46.0); Hemoglobin 7.2 g/dL (12.2-16.2); Lymphocytes # (auto) 2.6 10 ^3/uL (0.4-5.4); Lymphocytes % (auto) 32.9 % (10.0-50.0); Mean Corpuscular Hemoglobin 29.3 pg (28.0-32.0); Mean Corpuscular Hgb Conc. 34.7 g/dL (32.0-36.0); Mean Corpuscular Volume 84.5 fL (80.0-100.0); Monocytes % (auto) 4.4 % (0.0-12.0); Neutrophils % (auto) 60.6 % (37.0-80.0); Platelet Count (auto) 103 10^3/uL (140-450); Red Cell Distribution Width 16.3 % (11.8-14.3); White Blood Cell 7.9 10^3/uL (4.4-10.8)
[2024-01-21 06:49] LABS: Bilirubin, Total 0.3 mg/dL (0.2-1.0); Total Protein 5.9 g/dL (5.7-8.2)
[2024-01-21] MEDS ORDERED: traMADol HCL 50 MG TAB PO PRN (10:15)
[2024-01-21] MEDS: PANTOPRAZOLE 40 MG/10 ML VIAL INJ IV SCH (11:07)
[2024-01-21] MEDS: amLODIPine BESYLATE 5 MG TAB PO SCH (11:13)
[2024-01-21] MEDS: hydrALAZINE HCL 20 MG/ML VL IV PRN (19:24)
[2024-01-21 20:37] LABS: INR 1.06 (0.9-1.15); Partial Thromboplastin Time 26.2 SEC (24.5-34.5); Prothrombin Time 11.2 sec (9.3-11.8)
[2024-01-22] VITALS (8 sets, daily range): BP systolic 133–161; BP diastolic 57–80; PULSE 71–99; RESP 14–18; TEMP 98.1–99.2; O2SAT 95–100
[2024-01-22 10:34] LABS: Alanine Aminotransferase 170 U/L (7-40); Alkaline Phosphatase 181 U/L (46-116); Anion Gap 6 (5-15); Blood Urea Nitrogen 9 mg/dL (9-23); Calcium 10.3 mg/dL (8.7-10.4); Carbon Dioxide 26 mmol/L (20-30); Chloride 106 mmol/L (98-107); Glucose 98 mg/dL (74-106); Magnesium 1.6 mg/dL (1.6-2.6); Potassium 3.3 mmol/L (3.5-5.1); Sodium 138 mmol/L (136-145)
[2024-01-22 10:35] LABS: Albumin 3.8 g/dL (3.2-4.8); Aspartate Aminotransferase 68 U/L (13-40); Bilirubin, Total 0.4 mg/dL (0.2-1.0)
[2024-01-22 10:36] LABS: Total Protein 7.4 g/dL (5.7-8.2)
[2024-01-22 10:42] LABS: Basophils # (auto) 0.1 10 ^3/uL (0-0.2); Eosinophils # (auto) 0.1 10 ^3/uL (0-0.8); Hematocrit 24.6 % (36.0-46.0); Lymphocytes # (auto) 2.2 10 ^3/uL (0.4-5.4); Mean Corpuscular Volume 85.2 fL (80.0-100.0); Monocytes # (auto) 0.3 10 ^3/uL (0-1.3); Platelet Count (auto) 131 10^3/uL (140-450); Red Blood Cells 2.89 10^6/uL (4.0-5.20)
[2024-01-22 10:45] LABS: Eosinophils % (auto) 0.8 % (0.0-7.0); Hemoglobin 8.5 g/dL (12.2-16.2); Lymphocytes % (auto) 23.1 % (10.0-50.0); Mean Corpuscular Hemoglobin 29.4 pg (28.0-32.0); Mean Corpuscular Hgb Conc. 34.6 g/dL (32.0-36.0); Monocytes % (auto) 3.3 % (0.0-12.0); Neutrophils # (auto) 6.9 10 ^3/uL (1.6-8.6); Neutrophils % (auto) 71.8 % (37.0-80.0); Nucleated Red Blood Cells % 0.1 %; Red Cell Distribution Width 16.5 % (11.8-14.3); White Blood Cell 9.5 10^3/uL (4.4-10.8)
[2024-01-22] MEDS: POTASSIUM CHL 20 Meq TABLET PO ONE (18:25)
[2024-01-23] VITALS (7 sets, daily range): BP systolic 134–151; BP diastolic 67–79; PULSE 71–83; RESP 17–18; TEMP 98.5–99.1; O2SAT 95–98
[2024-01-23] MEDS: POTASSIUM CHL 20 Meq TABLET PO ONE (10:09)
== END 2024-01-23 18:23 | disposition home or self-care (01) | DRG 812 ==
LOC: ER 16:08 → TELE 18:32 → TELE-WESTW 22:45
PROVIDERS: ADMIT Nurse Practitioner Family; ATTEND Internal Medicine Nephrology
PROC: 30233N1 Transfusion of Nonautologous Red Blood Cells into Peripheral Vein, Percutaneous Approach (ICD-10-PCS; principal; 2024-01-20)
DX: D64.9 Anemia, unspecified (principal); C90.00 Multiple myeloma not having achieved remission; E11.9 Type 2 diabetes mellitus without complications; I10 Essential (primary) hypertension; E78.5 Hyperlipidemia, unspecified; Z90.49 Acquired absence of other specified parts of digestive tract; Z90.710 Acquired absence of both cervix and uterus; Z82.49 Family history of ischemic heart disease and other diseases of the circulatory system; Z80.3 Family history of malignant neoplasm of breast
CPT/HCPCS: 99285; C1891; 36415; 36430; 80053; 82607; 82728; 82746; 82962; 83540; 83550; 83735; 84443; 85025; 85610; 85730; 86850; 86900; 86901; 86920; 97110; 97116; 97163; 97530; G0378; J2470

== ENCOUNTER 2024-02-11 15:18 | Inpatient (IN) | payer OTHER ==
[~2024-02-11] VITALS: Ht 170.2 cm; Wt 57.6 kg
[2024-02-11] VITALS (12 sets, daily range): BP systolic 105–137; BP diastolic 51–106; PULSE 59–73; RESP 10–18; TEMP 97.6–98.1; O2SAT 96–100
[~2024-02-11 15:18] MED LIST changes: -PRED20TA2 PO
[2024-02-11 16:15] LABS: Basophils # (auto) 0 10 ^3/uL (0-0.2); Basophils % (auto) 0.3 % (0.0-2.0); Eosinophils # (auto) 0.1 10 ^3/uL (0-0.8); Lymphocytes # (auto) 2.7 10 ^3/uL (0.4-5.4); Monocytes # (auto) 0.3 10 ^3/uL (0-1.3); Monocytes % (auto) 3.6 % (0.0-12.0); Neutrophils # (auto) 5.8 10 ^3/uL (1.6-8.6); White Blood Cell 8.9 10^3/uL (4.4-10.8)
[2024-02-11 16:17] LABS: Eosinophils % (auto) 1.5 % (0.0-7.0); Hematocrit 17.1 % (36.0-46.0); Lymphocytes % (auto) 29.7 % (10.0-50.0); Mean Corpuscular Hemoglobin 29.5 pg (28.0-32.0); Mean Corpuscular Hgb Conc. 34.5 g/dL (32.0-36.0); Mean Corpuscular Volume 85.5 fL (80.0-100.0); Neutrophils % (auto) 64.9 % (37.0-80.0); Platelet Count (auto) 123 10^3/uL (140-450); Red Cell Distribution Width 15.7 % (11.8-14.3)
[2024-02-11 16:30] LABS: Hemoglobin 5.9 g/dL (12.2-16.2)
[2024-02-11 16:38] LABS: Alanine Aminotransferase 191 U/L (7-40); Albumin 3.7 g/dL (3.2-4.8); Alkaline Phosphatase 173 U/L (46-116); Anion Gap 2 (5-15); Aspartate Aminotransferase 76 U/L (13-40); BUN/Creatinine Ratio 18.2 (10.0-20.0); Bilirubin, Total 0.2 mg/dL (0.2-1.0); Blood Urea Nitrogen 14 mg/dL (9-23); Calcium 10.5 mg/dL (8.7-10.4); Carbon Dioxide 27 mmol/L (20-30); Chloride 110 mmol/L (98-107); Glucose 110 mg/dL (74-106); Potassium 3.7 mmol/L (3.5-5.1); Sodium 139 mmol/L (136-145); Total Protein 7.3 g/dL (5.7-8.2)
[2024-02-11] MEDS ORDERED: ACETAMINOPHEN 325 MG TAB PO PRN (19:15)
[2024-02-11] MEDS ORDERED: ONDANSETRON HCL 4 MG/2 ML VIAL IV PRN (19:15)
[2024-02-11] MEDS ORDERED: HYDROmorphone HCL 2 MG/ML VL/or syr IV PRN (19:15)
[2024-02-11] MEDS ORDERED: HYDROcodone-ACET 5/325MG TAB PO PRN (19:15)
[2024-02-11] MEDS ORDERED: DOCUSATE SOD 100 MG CAP PO PRN (19:15)
[2024-02-11] MEDS: SODIUM CHLOR 0.9% PF (SALINE LOCK) 10ML VIAL/SYR IV SCH (22:16)
[2024-02-12] VITALS (9 sets, daily range): BP systolic 113–154; BP diastolic 54–74; PULSE 52–79; RESP 16–22; TEMP 97.7–98.6; O2SAT 93–100
[2024-02-12] MEDS: LEVOTHYROXINE SODIUM 25 MCG TAB PO SCH (05:49)
[2024-02-12 07:15] LABS: Basophils # (auto) 0 10 ^3/uL (0-0.2); Basophils % (auto) 0.2 % (0.0-2.0); Eosinophils # (auto) 0.1 10 ^3/uL (0-0.8); Eosinophils % (auto) 1.5 % (0.0-7.0); Hemoglobin 8.9 g/dL (12.2-16.2); Lymphocytes # (auto) 2.7 10 ^3/uL (0.4-5.4); Mean Corpuscular Hemoglobin 29.2 pg (28.0-32.0); Mean Corpuscular Hgb Conc. 34.2 g/dL (32.0-36.0); Mean Corpuscular Volume 85.2 fL (80.0-100.0); Monocytes # (auto) 0.6 10 ^3/uL (0-1.3); Monocytes % (auto) 6.4 % (0.0-12.0); Neutrophils # (auto) 5.1 10 ^3/uL (1.6-8.6); Neutrophils % (auto) 59.9 % (37.0-80.0); Nucleated Red Blood Cells % 0.1 %; Platelet Count (auto) 82 10^3/uL (140-450); Red Blood Cells 3.05 10^6/uL (4.0-5.20); Red Cell Distribution Width 15.8 % (11.8-14.3); White Blood Cell 8.6 10^3/uL (4.4-10.8)
[2024-02-12 07:31] LABS: Alanine Aminotransferase 161 U/L (7-40); Albumin 3.1 g/dL (3.2-4.8); Alkaline Phosphatase 149 U/L (46-116); Anion Gap 3 (5-15); Aspartate Aminotransferase 64 U/L (13-40); BUN/Creatinine Ratio 22.1 (10.0-20.0); Bilirubin, Total 0.3 mg/dL (0.2-1.0); Blood Urea Nitrogen 15 mg/dL (9-23); Calcium 9.6 mg/dL (8.7-10.4); Carbon Dioxide 25 mmol/L (20-30); Chloride 111 mmol/L (98-107); Glucose 86 mg/dL (74-106); Potassium 3.7 mmol/L (3.5-5.1); Sodium 139 mmol/L (136-145); Total Protein 6.3 g/dL (5.7-8.2)
[2024-02-12] MEDS: amLODIPine BESYLATE 5 MG TAB PO SCH (08:37)
[2024-02-12] MEDS: PANTOPRAZOLE 40 MG TAB PO SCH (08:38)
[2024-02-12] MEDS: LISINOPRIL 5 MG TAB PO SCH (08:38)
[2024-02-12] MEDS: DEFERASIROX 360 MG PO SCH (10:00)
== END 2024-02-12 16:35 | disposition left against medical advice (07) | DRG 812 ==
LOC: ER 15:18 → OVERFLOW 19:14 → WEST WING 23:08
PROVIDERS: ADMIT Internal Medicine; ATTEND Internal Medicine Nephrology
PROC: 30233N1 Transfusion of Nonautologous Red Blood Cells into Peripheral Vein, Percutaneous Approach (ICD-10-PCS; principal; 2024-02-11)
DX: D64.9 Anemia, unspecified (principal); C90.00 Multiple myeloma not having achieved remission; E03.9 Hypothyroidism, unspecified; E11.9 Type 2 diabetes mellitus without complications; Z53.29 Procedure and treatment not carried out because of patient's decision for other reasons; Z66 Do not resuscitate; I10 Essential (primary) hypertension; E78.5 Hyperlipidemia, unspecified; D63.8 Anemia in other chronic diseases classified elsewhere; Z90.710 Acquired absence of both cervix and uterus; Z80.3 Family history of malignant neoplasm of breast; Z82.49 Family history of ischemic heart disease and other diseases of the circulatory system; Z79.4 Long term (current) use of insulin; Z79.899 Other long term (current) drug therapy
CPT/HCPCS: 36415; 36430; 80053; 85025; 86850; 86900; 86901; 86920; 87081; G0378

== ENCOUNTER 2024-03-31 15:26 | Inpatient (IN) | payer OTHER ==
[~2024-03-31] VITALS: Ht 170.2 cm; Wt 53.4 kg
[2024-03-31 16:39] LABS: Basophils # (auto) 0 10 ^3/uL (0-0.2); Basophils % (auto) 0.3 % (0.0-2.0); Eosinophils # (auto) 0.1 10 ^3/uL (0-0.8); Lymphocytes # (auto) 1.9 10 ^3/uL (0.4-5.4); Neutrophils # (auto) 5.5 10 ^3/uL (1.6-8.6); White Blood Cell 7.9 10^3/uL (4.4-10.8)
[2024-03-31 16:44] LABS: Hematocrit 15.5 % (36.0-46.0); Lymphocytes % (auto) 24.5 % (10.0-50.0); Mean Corpuscular Hemoglobin 28.1 pg (28.0-32.0); Mean Corpuscular Hgb Conc. 34.3 g/dL (32.0-36.0); Monocytes # (auto) 0.4 10 ^3/uL (0-1.3); Monocytes % (auto) 4.6 % (0.0-12.0); Neutrophils % (auto) 69.6 % (37.0-80.0); Platelet Count (auto) 97 10^3/uL (140-450); Red Blood Cells 1.89 10^6/uL (4.0-5.20); Red Cell Distribution Width 15.1 % (11.8-14.3)
[2024-03-31 16:50] LABS: Hemoglobin 5.3 g/dL (12.2-16.2)
[2024-03-31 16:56] LABS: Alanine Aminotransferase 134 U/L (7-40); Albumin 3.7 g/dL (3.2-4.8); Alkaline Phosphatase 157 U/L (46-116); Anion Gap 4 (5-15); Aspartate Aminotransferase 50 U/L (13-40); BUN/Creatinine Ratio 23.5 (10.0-20.0); Blood Urea Nitrogen 19 mg/dL (9-23); Calcium 10.9 mg/dL (8.7-10.4); Carbon Dioxide 26 mmol/L (20-31); Chloride 112 mmol/L (98-107); Glucose 106 mg/dL (74-106); Potassium 3.9 mmol/L (3.5-5.1); Sodium 142 mmol/L (136-145)
[2024-03-31 16:57] LABS: Bilirubin, Total 0.3 mg/dL (0.2-1.0); Total Protein 7.2 g/dL (5.7-8.2)
[2024-03-31 18:35] VITALS: PULSE 100; RESP 18; O2SAT 98
[2024-03-31 20:30] VITALS: BP 126/61; PULSE 97; RESP 17; TEMP 98.3
[2024-03-31 20:50] VITALS: BP 136/56; PULSE 100; RESP 17; TEMP 98.7
[2024-03-31] MEDS ORDERED: ONDANSETRON HCL 4 MG/2 ML VIAL IV PRN (21:45)
[2024-03-31] MEDS ORDERED: TEMAZEPAM 15 MG CAP PO PRN (21:45)
[2024-03-31] MEDS ORDERED: DEXTROSE (50%) 50ML SYRG IV PRN (21:45)
[2024-03-31] MEDS ORDERED: ACETAMINOPHEN 325 MG TAB PO PRN (21:45)
[2024-03-31] MEDS: ACCU-CHEK COMFORT CURVE STRIP VI SCH (22:00)
[2024-03-31] MEDS: InsuLIN REG 1unit/0.01ml Soln (100units/ml) SC SCH (22:00)
[2024-03-31] MEDS: ATORVASTATIN 20 MG TAB PO SCH (22:56)
[2024-03-31 23:17] VITALS: PULSE 99; RESP 16; O2SAT 98
[2024-03-31 23:45] VITALS: BP 142/70; PULSE 89; RESP 18; TEMP 98.5
[2024-04-01] VITALS (10 sets, daily range): BP systolic 99–154; BP diastolic 53–74; PULSE 61–99; RESP 16–18; TEMP 97.7–98.7; O2SAT 94–100
[2024-04-01] MEDS: PANTOPRAZOLE 40 MG TAB PO SCH (06:13)
[2024-04-01] MEDS: LEVOTHYROXINE SODIUM 25 MCG TAB PO SCH (06:13)
[2024-04-01 06:40] LABS: Basophils # (auto) 0 10 ^3/uL (0-0.2); Basophils % (auto) 0.3 % (0.0-2.0); Eosinophils # (auto) 0.1 10 ^3/uL (0-0.8); Eosinophils % (auto) 1.8 % (0.0-7.0); Lymphocytes # (auto) 2.6 10 ^3/uL (0.4-5.4); Monocytes # (auto) 0.3 10 ^3/uL (0-1.3); Neutrophils # (auto) 4.4 10 ^3/uL (1.6-8.6); Nucleated Red Blood Cells % 0.1 %
[2024-04-01 06:42] LABS: Hematocrit 22.1 % (36.0-46.0); Hemoglobin 7.8 g/dL (12.2-16.2); Lymphocytes % (auto) 34.9 % (10.0-50.0); Mean Corpuscular Hemoglobin 30.5 pg (28.0-32.0); Mean Corpuscular Hgb Conc. 35.2 g/dL (32.0-36.0); Mean Corpuscular Volume 86.6 fL (80.0-100.0); Monocytes % (auto) 4.2 % (0.0-12.0); Neutrophils % (auto) 58.8 % (37.0-80.0); Platelet Count (auto) 74 10^3/uL (140-450); Red Blood Cells 2.56 10^6/uL (4.0-5.20); Red Cell Distribution Width 16.4 % (11.8-14.3); White Blood Cell 7.5 10^3/uL (4.4-10.8)
[2024-04-01 06:53] LABS: Alanine Aminotransferase 117 U/L (7-40); Albumin 3.3 g/dL (3.2-4.8); Alkaline Phosphatase 149 U/L (46-116); Anion Gap 5 (5-15); Aspartate Aminotransferase 50 U/L (13-40); BUN/Creatinine Ratio 26.2 (10.0-20.0); Bilirubin, Total 0.5 mg/dL (0.2-1.0); Blood Urea Nitrogen 17 mg/dL (9-23); Carbon Dioxide 25 mmol/L (20-31); Chloride 112 mmol/L (98-107); Glucose 98 mg/dL (74-106); Potassium 3.5 mmol/L (3.5-5.1); Sodium 142 mmol/L (136-145); Total Protein 6.4 g/dL (5.7-8.2)
[2024-04-01] MEDS: amLODIPine BESYLATE 5 MG TAB PO SCH (09:18)
== END 2024-04-01 16:45 | disposition left against medical advice (07) | DRG 812 ==
LOC: ER 15:26 → OVERFLOW 21:39 → WEST WING 21:39
PROVIDERS: ADMIT Nurse Practitioner; ATTEND Internal Medicine Nephrology
PROC: 30233N1 Transfusion of Nonautologous Red Blood Cells into Peripheral Vein, Percutaneous Approach (ICD-10-PCS; principal; 2024-03-31)
DX: D64.9 Anemia, unspecified (principal); I10 Essential (primary) hypertension; E11.9 Type 2 diabetes mellitus without complications; E78.5 Hyperlipidemia, unspecified; J45.909 Unspecified asthma, uncomplicated; Z90.710 Acquired absence of both cervix and uterus; Z90.49 Acquired absence of other specified parts of digestive tract; Z85.79 Personal history of other malignant neoplasms of lymphoid, hematopoietic and related tissues
CPT/HCPCS: 36415; 80053; 82728; 82962; 83036; 84443; 85025; 86850; 86900; 86901; 86920; 87081; 99291; G0378

== ENCOUNTER → 2024-04-15 | Outpatient (CLI) | payer OTHER ==
[2024-04-15 15:48] LABS: Basophils # (auto) 0 10 ^3/uL (0-0.2); Basophils % (auto) 0.3 % (0.0-2.0); Eosinophils # (auto) 0.1 10 ^3/uL (0-0.8); Eosinophils % (auto) 1.1 % (0.0-7.0); Hematocrit 24.1 % (36.0-46.0); Hemoglobin 8.2 g/dL (12.2-16.2); Lymphocytes # (auto) 2.4 10 ^3/uL (0.4-5.4); Lymphocytes % (auto) 27.6 % (10.0-50.0); Mean Corpuscular Hemoglobin 29.7 pg (28.0-32.0); Mean Corpuscular Volume 87.5 fL (80.0-100.0); Monocytes # (auto) 0.5 10 ^3/uL (0-1.3); Monocytes % (auto) 5.2 % (0.0-12.0); Neutrophils # (auto) 5.7 10 ^3/uL (1.6-8.6); Neutrophils % (auto) 65.8 % (37.0-80.0); Platelet Count (auto) 88 10^3/uL (140-450); Red Blood Cells 2.76 10^6/uL (4.0-5.20); Red Cell Distribution Width 17.2 % (11.8-14.3); White Blood Cell 8.7 10^3/uL (4.4-10.8)
== END | disposition home or self-care (01) ==
LOC: LAB 14:56
PROVIDERS: ATTEND Internal Medicine
DX: C90.00 Multiple myeloma not having achieved remission (principal); D64.9 Anemia, unspecified
CPT/HCPCS: 36415; 85025

== ENCOUNTER 2024-04-16 08:24 | Day surgery (SDC) | payer OTHER ==
[2024-04-16 10:20] VITALS: BP 131/63; PULSE 66; RESP 12; O2SAT 95
[2024-05-03] MEDS ORDERED: AMLO1TAB22 PO (17:09)
[2024-05-03] MEDS ORDERED: ROSU20TA14 PO (17:09)
[2024-05-03] MEDS ORDERED: [UNRECOGNIZED DRUG - CODE] PO (17:09)
== END 2024-04-16 11:00 | disposition home or self-care (01) ==
LOC: CATH 08:24
PROVIDERS: ATTEND Internal Medicine
DX: D64.9 Anemia, unspecified (principal); Z53.8 Procedure and treatment not carried out for other reasons; F17.210 Nicotine dependence, cigarettes, uncomplicated; Z98.51 Tubal ligation status; Z90.710 Acquired absence of both cervix and uterus; Z82.3 Family history of stroke; Z82.49 Family history of ischemic heart disease and other diseases of the circulatory system; Z80.3 Family history of malignant neoplasm of breast; Z83.42 Family history of familial hypercholesterolemia

== ENCOUNTER 2024-05-04 07:09 | Day surgery (SDC) | payer OTHER ==
[2024-05-03 12:40] LABS: Basophils # (auto) 0 10 ^3/uL (0-0.2); Basophils % (auto) 0.3 % (0.0-2.0); Eosinophils # (auto) 0.1 10 ^3/uL (0-0.8); Eosinophils % (auto) 1.3 % (0.0-7.0); Lymphocytes # (auto) 2.7 10 ^3/uL (0.4-5.4); Monocytes # (auto) 0.4 10 ^3/uL (0-1.3); White Blood Cell 8.5 10^3/uL (4.4-10.8)
[2024-05-03 12:42] LABS: Hematocrit 14.9 % (36.0-46.0); Lymphocytes % (auto) 32.1 % (10.0-50.0); Mean Corpuscular Hemoglobin 29.8 pg (28.0-32.0); Mean Corpuscular Hgb Conc. 34.3 g/dL (32.0-36.0); Monocytes % (auto) 4.4 % (0.0-12.0); Neutrophils # (auto) 5.2 10 ^3/uL (1.6-8.6); Neutrophils % (auto) 61.9 % (37.0-80.0); Platelet Count (auto) 133 10^3/uL (140-450); Red Blood Cells 1.71 10^6/uL (4.0-5.20)
[2024-05-03 13:00] LABS: Hemoglobin 5.1 g/dL (12.2-16.2)
[2024-05-03 14:29] LABS: Large Platelets FEW; Ovalocytes FEW; Platelet Estimate Decrea
[2024-05-04] VITALS (13 sets, daily range): BP systolic 135–164; BP diastolic 59–77; PULSE 72–92; RESP 12–19; TEMP 97.5–99.4
[~2024-05-04 07:09] MED LIST changes: +ROSU20TA14 PO; -ROSU20TA56 PO
== END 2024-05-04 15:15 | disposition home or self-care (01) ==
LOC: CATH 07:09
PROVIDERS: ATTEND Internal Medicine
DX: D64.9 Anemia, unspecified (principal); C90.00 Multiple myeloma not having achieved remission; I10 Essential (primary) hypertension; E78.5 Hyperlipidemia, unspecified; E11.9 Type 2 diabetes mellitus without complications; Z90.49 Acquired absence of other specified parts of digestive tract; Z87.891 Personal history of nicotine dependence; J45.909 Unspecified asthma, uncomplicated; Z90.710 Acquired absence of both cervix and uterus
CPT/HCPCS: 36415; 36430; 85025; 86850; 86900; 86901; 86920; J7030; P9016

== ENCOUNTER 2024-05-26 13:57 | Inpatient (IN) | payer OTHER ==
[~2024-05-26] VITALS: Ht 175.3 cm; Wt 53.4 kg
[2024-05-26 15:00] VITALS: PULSE 119; RESP 19; O2SAT 93
--- NOTE | 2024-05-26 15:14 | DVH ---
CHEST RADIOGRAPH Indication: aloc Technique: Single frontal view of the chest was obtained COMPARISON: XY CHEST PORTABLE on DOS: 12/30/23, XY CHEST XRAY 1 VIEW on DOS: 06/13/23, XY CHEST PORTAB LE on DOS: 05/07/23 FINDINGS: Lines and Tubes: Right chest port in satisfactory position. Lungs: Clear Pleura: No effusion. No pneumothorax. Cardiomediastinal contours: Unremarkable Bones: Unremarkable IMPRESSION: No acute disease.
[2024-05-26 15:26] LABS: Basophils # (auto) 0 10 ^3/uL (0-0.2); Eosinophils # (auto) 0 10 ^3/uL (0-0.8); Eosinophils % (auto) 0.1 % (0.0-7.0); Monocytes # (auto) 0.5 10 ^3/uL (0-1.3); Neutrophils # (auto) 8.3 10 ^3/uL (1.6-8.6); Neutrophils % (auto) 76.4 % (37.0-80.0); Nucleated Red Blood Cells % 0.1 %; White Blood Cell 10.9 10^3/uL (4.4-10.8)
[2024-05-26 15:27] LABS: Basophils % (auto) 0.1 % (0.0-2.0); Hematocrit 17.9 % (36.0-46.0); Lymphocytes # (auto) 2.1 10 ^3/uL (0.4-5.4); Lymphocytes % (auto) 19.2 % (10.0-50.0); Mean Corpuscular Hemoglobin 28.3 pg (28.0-32.0); Mean Corpuscular Hgb Conc. 33.6 g/dL (32.0-36.0); Mean Corpuscular Volume 84.1 fL (80.0-100.0); Monocytes % (auto) 4.2 % (0.0-12.0); Platelet Count (auto) 108 10^3/uL (140-450); Red Blood Cells 2.12 10^6/uL (4.0-5.20); Red Cell Distribution Width 15.3 % (11.8-14.3)
[2024-05-26 15:41] LABS: Albumin 3.8 g/dL (3.2-4.8); Anion Gap 8 (5-15); BUN/Creatinine Ratio 19.4 (10.0-20.0); Bilirubin, Total 0.4 mg/dL (0.2-1.0); Blood Urea Nitrogen 14 mg/dL (9-23); Carbon Dioxide 24 mmol/L (20-31); Chloride 106 mmol/L (98-107); Potassium 4.1 mmol/L (3.5-5.1); Sodium 138 mmol/L (136-145); Total Protein 7.1 g/dL (5.7-8.2)
[2024-05-26 16:03] LABS: Alanine Aminotransferase 122 U/L (7-40); Alkaline Phosphatase 175 U/L (46-116); Aspartate Aminotransferase 46 U/L (13-40); Calcium 10.5 mg/dL (8.7-10.4); Glucose 116 mg/dL (74-106)
[2024-05-26 16:25] LABS: Urine Amorphous Crystal FEW /hpf (None Seen); Urine Bacteria FEW /hpf (None Seen); Urine Blood TRACE /uL (Negative); Urine Clarity Turbid (Clear); Urine Color Light-Orange (Yellow); Urine Mucus FEW (None Seen); Urine Protein, UAD 2+ (Negative); Urine Specific Gravity 1.017 (1.001-1.035); Urine Urobilinogen Normal (Negative); Urine WBC 2 /hpf (0 - 5); Urine pH 6.5 (5.0-9.0)
[2024-05-26] MEDS ORDERED: HYDROcodone-ACET 5/325MG TAB PO PRN (19:00)
[2024-05-26] MEDS ORDERED: ACETAMINOPHEN 325 MG TAB PO PRN (19:00)
[2024-05-26] MEDS ORDERED: TEMAZEPAM 15 MG CAP PO PRN (19:00)
[2024-05-26] MEDS ORDERED: ONDANSETRON HCL 4 MG/2 ML VIAL IV PRN (19:00)
[2024-05-26] MEDS ORDERED: LORazepam 0.5 MG TAB PO PRN (19:00)
[2024-05-26] MEDS ORDERED: MORPHINE SULFATE INJ 2 MG/ml SYRG IV PRN (19:00)
[2024-05-26] MEDS ORDERED: DOCUSATE SOD 100 MG CAP PO PRN (19:00)
[2024-05-26] MEDS ORDERED: DEXTROSE (50%) 50ML SYRG IV PRN (19:00)
[2024-05-26] MEDS ORDERED: MAALOX PLUS or MAALOX 30 ML PO PRN (19:00)
--- NOTE | 2024-05-26 19:26 | DVHHP2 ---
History of Present Illness Reason for Visit: Symptomatic anemia History of Present Illness 68-year-old with a past medical history multiple myeloma anemia thyroid and hypertension patient has comes to the hospital multiple times for the issues of severe anemia patient has on multiple occasion had needed to have a blood transfusion the last time this occurred was in March typically on a monthly basis the patient needs to have multiple episodes where transfusions are required Cardiovascular: HTN Heme/Onc: Anemia NOS Endocrine: Diabetes Review of Systems Constitutional: Yes: Weakness; No: Fever, Chills, Sweats, Malaise, Other Eyes: No: Pain, Vision change, Conjunctivae inflammation, Eyelid inflammation, Other, Redness ENT: No: Ear pain, Ear discharge, Nose pain, Nose discharge, Nose congestion, Mouth pain, Mouth swelling, Throat pain, Throat swelling, Other Respiratory: No: Cough, Dry, Shortness of breath, SOB with excertion, Wheezing, Hemoptysis, Pleuritic Pain, Sputum, Wheezing, Other Cardiovascular: No: Chest Pain, Palpitations, Orthopnea, Paroxysmal Noc. Dyspnea, Edema, Lt Headedness, Other Gastrointestinal: No: Nausea, Vomiting, Abdominal Pain, Diarrhea, Constipation, Melena, Hematochezia, Other Genitourinary: No Dysuria, No Frequency, No Incontinence, No Hematuria, No Retention, No Other Musculoskeletal: No: other, neck pain, shoulder pain, arm pain, back pain, hand pain, leg pain, foot pain Skin: No: Rash, Lesions, Jaundice, Bruising, Other Neurological: Weakness; No: Numbness, Incoordination, Change in speech, C onfusion, Seizures, Other Allergies: Coded Allergies: NO KNOWN ALLERGIES (Unverified , 12/07/22) Medications Current Medications Medications Dose Ordered Sig/Mandi Route Start Time Stop Time Status Last Admin Dose Admin Diagnostic Test (Pha) 1 strip IQ4HR 05/26/24 20:00 Insulin Human Regular IQ4HR SC 05/26/24 20:00 Dextrose 50 ml UD PRN IV 05/26/24 19:00 Sodium Chloride 1,000 ml @ 100 mls/hr Q10H IV 05/26/24 19:00 Lorazepam 0.5 mg Q6HP PRN PO 05/26/24 19:00 Al Hydrox/Mg Hydrox/Simethicone 30 ml Q6HP PRN PO 05/26/24 19:00 Docusate Sodium 100 mg BIDPRN PRN PO 05/26/24 19:00 Acetaminophen 650 mg Q6HP PRN PO 05/26/24 19:00 Temazepam 15 mg QHSP PRN PO 05/26/24 19:00 Acetaminophen/ Hydrocodone Bitart 1 tab Q4HP PRN PO 05/26/24 19:00 Ondansetron HCl 4 mg Q4HP PRN IV 05/26/24 19:00 Morphine Sulfate 2 mg Q4HPRN PRN IV 05/26/24 19:00 Exam Vital Signs Vital Signs Date Time Temp Pulse Resp B/P (MAP) Pulse Ox O2 Delivery O2 Flow Rate FiO2 05/26/24 16:00 107 05/26/24 16:00 24 174/72 (106) 98 05/26/24 15:00 99.4 99.4 05/26/24 15:00 Nasal Cannula* 2 28 General Appearance: Alert, Oriented X3, Cooperative, moderate distress HEENT: Atraumatic, PERRLA ([place]) Respiratory: Clear to auscultation, Normal air movement Cardiovascular: Regular rate, Normal S1, Normal S2 Abdominal: Normal bowel sounds, Soft, No tenderness Extremities: No clubbing, No cyanosis, No edema Skin: No rashes, No breakdown Neuro: Normal gait, Normal speech Psych/Mental Status: Mood NL Labs/Xrays Labs Test 05/26/24 15:28 05/26/24 15:09 Range/Units Urine Color Light-orange Yellow Urine Clarity Turbid H Clear Urine pH 6.5 5.0-9.0 Urine Specific [place] 1.017 1.001-1.035 Urine Protein 2+ H Negative Urine Ketones Negative Negative Urine Blood Trace H Negative /uL Urine Nitrite Negative Negative Urine Bilirubin Negative Negative Urine Urobilinogen Normal Negative mg/dL Urine Leukocyte Esterase Negative Negative /uL Urine RBC 1 0 - 4 /hpf Urine WBC 2 0 - 5 /hpf Urine Squamous Epithelial Cells Few <5 /hpf Urine Amorphous Crystals Few None Seen /hpf Urine Bacteria Few H None Seen /hpf Urine Mucus Few None Seen Urine Glucose Normal Normal mg/dL White Blood Count 10.9 H 4.4-10.8 10^3/uL Red Blood Count 2.12 L 4.0-5.20 10^6/uL Hemoglobin 6.0 *L 12.2-16.2 g/dL Hematocrit 17.9 L 36.0-46.0 % Mean Corpuscular Volume 84.1 80.0-100.0 fL Mean Corpuscular Hemoglobin 28.3 28.0-32.0 pg Mean Corpuscular Hemoglobin Concent 33.6 32.0-36.0 g/dL Red Cell Distribution Width 15.3 H 11.8-14.3 % Platelet Count 108 L 140-450 10^3/uL Mean Platelet Volume 8.9 6.9-10.8 fL Neutrophils (%) (Auto) 76.4 37.0-80.0 % Lymphocytes (%) (Auto) 19.2 10.0-50.0 % Monocytes (%) (Auto) 4.2 0.0-12.0 % Eosinophils (%) (Auto) 0.1 0.0-7.0 % Basophils (%) (Auto) 0.1 0.0-2.0 % Neutrophils # (Auto) 8.3 1.6-8.6 10 ^3/uL Lymphocytes # (Auto) 2.1 0.4-5.4 10 ^3/uL Monocytes # (Auto) 0.5 0-1.3 10 ^3/uL Eosinophils # (Auto) 0 0-0.8 10 ^3/uL Basophils # (Auto) 0 0-0.2 10 ^3/uL Nucleated Red Blood Cells 0.1 % Sodium Level 138 136-145 mmol/L Potassium Level 4.1 3.5-5.1 mmol/L Chloride Level 106 98-107 mmol/L Carbon Dioxide Level 24 20-31 mmol/L Anion Gap 8 5-15 Blood Urea Nitrogen 14 9-23 mg/dL Creatinine 0.72 0.550-1.02 mg/dL Glomerular Filtration Rate Calc 89 >90 mL/min BUN/Creatinine Ratio 19.4 10.0-20.0 Serum Glucose 116 H 74-106 mg/dL Lactic Acid Level 1.1 0.4-2.0 mmol/L Calcium Level 10.5 H 8.7-10.4 mg/dL Total Bilirubin 0.4 0.2-1.0 mg/dL Aspartate Amino Transferase (AST) 46 H 13-40 U/L Alanine Aminotransferase (ALT) 122 H 7-40 U/L Alkaline Phosphatase 175 H 46-116 U/L Ammonia 15 11-32 umol/L Total Protein 7.1 5.7-8.2 g/dL Albumin 3.8 3.2-4.8 g/dL Assessment/Plan Assessment/Plan Admit to [facility] Symptomatic anemia History of diabetes mellitus History of multiple myeloma History of hypertension Patient on several occasions and had to have multiple blood transfusions due to severe anemia Anemia symptomatic We will continue with home medications Type and screen completed Transfuse 2 units repeat a.m. labs Plan discussed with: Patient My Orders Orders - CATHY RYDER MD Procedure Category Date Status Time Packedcells -Active BBK 05/26/24 Logged Bleeding 18:51 Iron Panel LAB 05/26/24 Logged 18:51 Reticulocyte Count LAB 05/26/24 Logged 18:51 Ferritin LAB 05/26/24 Logged 18:51 Lactate Dehydrogenase LAB 05/26/24 Logged 18:51 Vitamin B12 LAB 05/26/24 Logged 18:51 Folate (Folic Acid) LAB 05/26/24 Logged 18:51 Glucose Blood PHA 05/26/24 In Process (Accu-Chek Comfort 20:00 Insulin R (Human) PHA 05/26/24 In Process (Insulin R) 20:00 Dextrose 50% Syringe PHA 05/26/24 In Process 19:00 Admit ADMIT 05/26/24 Transmitted 18:51 Code Status CODE 05/26/24 Transmitted 18:51 Vital Signs RIDDHI 05/26/24 In Process 18:51 Review Orders With RIDDHI 05/26/24 In Process Adm. 18:51 Regular Diet DIET 05/27/24 Transmitted Breakfast Sodium Chloride 0.9% PHA 05/26/24 In Process 19:00 Lorazepam Tablet PHA 05/26/24 In Process (Ativan Tablet) 19:00 Alum & Mag PHA 05/26/24 In Process Hydrox-Simethicone 19:00 Docusate Sodium PHA 05/26/24 In Process Capsule (Colace 19:00 Acetaminophen Tablet PHA 05/26/24 In Process (Tylenol Tablet) 19:00 Temazepam (Restoril) PHA 05/26/24 In Process 19:00 Notify Of Changes [facility] 05/26/24 In Process From Base 18:51 Advance Directive RIDDHI 05/26/24 In Process 18:51 Basic Metabolic Panel LAB 05/27/24 Verified 04:00 Complete Blood Count LAB 05/27/24 Verified 04:00 Patient Condition ORDERS 05/26/24 Transmitted 18:51 Allergies RIDDHI 05/26/24 In Process 18:51 Hydrocodone-Acet PHA 05/26/24 In Process 5/325mg Tab ([place] 19:00 Ondansetron Hcl PHA 05/26/24 In Process (Zofran) 19:00 Morphine Sulfate PHA 05/26/24 In Process Injection 19:00 Notify Md Of Changes RIDDHI 05/26/24 In Process From Base 18:51 Oxygen By Nasal RT 05/26/24 Transmitted Cannula 18:51 Drop Hammer Setter Up For RIDDHI 05/26/24 In Process 24 Hours 18:51 Problem List: (1) Symptomatic anemia (2) Generalized weakness (3) Severe anemia (4) Multiple myeloma (5) Anemia (6) History of multiple myeloma Date of Service: May 26, 2024 Billing Provider: CATHY RYDER MD Common Visit Codes: [id number] INP/OBS CARE (HIGH) CATHY RYDER MD May 26, 2024 19:26
[2024-05-26] MEDS: InsuLIN REG 1unit/0.01ml Soln (100units/ml) SC SCH (20:00)
--- NOTE | 2024-05-26 20:02 | ED.PDOC ---
History of Present Illness HPI Comments This is a 69-year-old female who comes in with chief complaint of altered level of consciousness. The patient has a history of multiple myeloma. The patient was last seen normal at approximately 9:00 a.m. last night. EN route, the patient had an Accu-Chek of 105. The patient is unable to give us a medical history secondary to the altered mental status. Her vital signs are stable upon arrival. Chief Complaint: ALOC Time Seen by MD: 14:41 Primary Care Provider: ILDAO Reviewed Notes: Nurses Notes, Medications, Allergies (No allergies to medications) Allergies: Coded Allergies: NO KNOWN ALLERGIES (Unverified , 12/07/22) Home Meds Reported Medications Pantoprazole Sodium Sesquihydr (Pantoprazole Sodium) 40 Mg Tab, 40 MG PO DAILY for GERD, TAB 05/03/24 Rosuvastatin Calcium (Crestor) 20 Mg Tab, 1 TAB PO DAILY, #30 TAB 5 Refills 05/03/24 Lisinopril (Lisinopril) 10 Mg Tab, 10 MG PO DAILY for HTN for 30 Days, MG 05/03/24 Deferasirox (Jadenu) 360 Mg Tab, 360 MG PO DAILY for high iron, TAB 05/03/24 Glucose Blood (Freestyle Lite Test Strip) Lite Umu, XX BID for diabetes mellitus 12/30/23 Levothyroxine Sodium (Levothyroxine Sodium) 25 Mcg Tab, 1 TAB PO DAILY 06/14/23 Amlodipine Besylate (Amlodipine Besylate) 10 Mg Tab, 1 TAB PO DAILY 02/15/23 Potassium Chloride (Potassium Chloride ER) 20 Meq Tab, 1 TAB PO DAILY 02/15/23 Information Source: Patient Mode of Arrival: EMS Severity: Moderate Timing: Hours Duration: Since onset Prehospital treatment: Commercial Estimator, IVF Associated signs and symptoms No associated nausea or vomiting Past Medical History PAST MEDICAL HISTORY: Anemia, Cancer, DM, GERD, High Lipids, HTN, Thyroid Past Medical History (Other): Multiple myeloma Surgical History: Appendectomy, Hysterectomy 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, Uterine Fibroids Family History Family History: Reviewed,noncontributory to illness Social History Smoker: Non-Smoker Alcohol: Denies ETOH Use Drugs: Denies Drug Use Lives In: Home, Residential Constitutional: denies: chills, diaphoresis, fatigue, fever, malaise, sweats, weakness, others EENTM: denies: blurred vision, double vision, ear bleeding, ear discharge, ear drainage, ear pain, ear ringing, eye pain, eye redness, hearing loss, mouth pain, mouth swelling, nasal discharge, nose bleeding, nose congestion, nose pain, photophobia, tearing, throat pain, throat swelling, voice changes, others Respiratory: denies: cough, hemoptysis, orthopnea, SOB at rest, shortness of breath, SOB with excertion, stridor, wheezing, others Cardiovascular: denies: chest pain, dizzy spells, diaphoresis, Dyspnea on exertion, edema, irregular heart beat, left arm pain, lightheadedness, palpitations, PND, syncope, others Gastrointestinal: denies: abdomen distended, abdominal pain, blood streaked bowels, constipated, diarrhea, dysphagia, difficulty swallowing, hematemesis, melena, nausea, poor appetite, poor fluid intake, rectal bleeding, rectal pain, vomiting, others Genitourinary: denies: abnormal vagina bleeding, burning, dyspareunia, dysuria, flank pain, frequency, hematuria, incontinence, pain, , vagina disc harge, urgency, others Neurological: denies: dizziness, fainting, headache, left sided numbness, left sided weakness, numbness, paresthesia, pre-existing deficit, right sided numbness, right sided weakness, seizure, speech problems, tingling, tremors, weakness, others Musculoskeletal: denies: back pain, gout, joint pain, joint swelling, muscle pain, muscle stiffness, neck pain, others Integumetry: denies: bruises, change in color, change in hair/nails, dryness, laceration, lesions, lumps, rash, wounds, others Allergic/Immunocompromised: denies: Difficulty Healing, Frequent Infections, Hives, Itching, others Hematologic/Lymphatic: denies: anemia, blood clots, easy bleeding, easy bruising, swollen glands, others Endocrine: denies: excessive hunger, excessive sweating, excessive thirst, excessive urination, flushing, intolerance to cold, intolerance to heat, unexplained weight gain, unexplained weight loss, others Psychiatric: denies: anxiety, bipolar disorder, depression, hopeless, panic disorder, schizophrenia, sleepless, suicidal, others Physical Exam General Appearance: Moderate Distress HEENT: Normal ENT Inspection, Pharynx Normal, TMs Normal Neck: Full Range of Motion, Non-Tender, Normal, Normal Inspection Respiratory: Chest Non-Tender, Lungs Clear, No Accessory Muscle Use, No Respiratory Distress, Normal Breath Sounds Cardiovascular: No Edema, No JVD, No Murmur, No Gallop, Normal Peripheral Pulses, Regular Rate/Rhythm Breast Exam: Deferred Gastrointestinal: No Organomegaly, Non Tender, No Pulsatile Mass, Normal Bowel Sounds, Soft Genitalia: Deferred Pelvic: Deferred Rectal: Deferred Extremities: No calf tenderness, Normal capillary refill, No pedal edema Musculoskeletal : Apperance: Normal Neurologic: clothing examiner II-XII nml as Tested, Motor Weakness, Normal Affect, Normal Mood, No Sensory Deficits Cerebellar Function: Normal Reflexes: Normal Skin: Dry, Pallor, Warm Lymphatic: No Adenopathy Was a procedure done? Was a procedure done?: No EKG EKG : Pulse Rate (adult): 105 [place]: Normal Cardiac Rhythm: ST ST: Nonsp Differential Dx Considerations may include: Multiple myeloma, generalized weakness, electrolyte imbalance, severe anemia X-Ray, Labs, Meds, VS Vital Signs Date Time Temp Pulse Resp B/P (MAP) Pulse Ox O2 Delivery O2 Flow Rate FiO2 05/26/24 18:00 113 19 164/71 (102) 89 05/26/24 16:00 107 05/26/24 16:00 109 24 174/72 (106) 98 05/26/24 15:39 105 05/26/24 15:00 99.4 108 19 174/72 (106) 93 99.4 05/26/24 15:00 119 19 93 Nasal Cannula* 2 28 05/26/24 14:05 99.2 112 18 179/94 (122) 100 Lab Test 05/26/24 15:28 05/26/24 15:09 Range/Units Urine Color Light-orange Yellow Urine Clarity Turbid H Clear Urine pH 6.5 5.0-9.0 Urine Specific [place] 1.017 1.001-1.035 Urine Protein 2+ H Negative Urine Ketones Negative Negative Urine Blood Trace H Negative /uL Urine Nitrite Negative Negative Urine Bilirubin Negative Negative Urine Urobilinogen Normal Negative mg/dL Urine Leukocyte Esterase Negative Negative /uL Urine RBC 1 0 - 4 /hpf Urine WBC 2 0 - 5 /hpf Urine Squamous Epithelial Cells Few <5 /hpf Urine Amorphous Crystals Few None Seen /hpf Urine Bacteria Few H None Seen /hpf Urine Mucus Few None Seen Urine Glucose Normal Normal mg/dL White Blood Count 10.9 H 4.4-10.8 10^3/uL Red Blood Count 2.12 L 4.0-5.20 10^6/uL Hemoglobin 6.0 *L 12.2-16.2 g/dL Hematocrit 17.9 L 36.0-46.0 % Mean Corpuscular Volume 84.1 80.0-100.0 fL Mean Corpuscular Hemoglobin 28.3 28.0-32.0 pg Mean Corpuscular Hemoglobin Concent 33.6 32.0-36.0 g/dL Red Cell Distribution Width 15.3 H 11.8-14.3 % Platelet Count 108 L 140-450 10^3/uL Mean Platelet Volume 8.9 6.9-10.8 fL Neutrophils (%) (Auto) 76.4 37.0-80.0 % Lymphocytes (%) (Auto) 19.2 10.0-50.0 % Monocytes (%) (Auto) 4.2 0.0-12.0 % Eosinophils (%) (Auto) 0.1 0.0-7.0 % Basophils (%) (Auto) 0.1 0.0-2.0 % Neutrophils # (Auto) 8.3 1.6-8.6 10 ^3/uL Lymphocytes # (Auto) 2.1 0.4-5.4 10 ^3/uL Monocytes # (Auto) 0.5 0-1.3 10 ^3/uL Eosinophils # (Auto) 0 0-0.8 10 ^3/uL Basophils # (Auto) 0 0-0.2 10 ^3/uL Nucleated Red Blood Cells 0.1 % Reticulocyte Count (auto) 0.06 L 0.5-1.5 % Sodium Level 138 136-145 mmol/L Potassium Level 4.1 3.5-5.1 mmol/L Chloride Level 106 98-107 mmol/L Carbon Dioxide Level 24 20-31 mmol/L Anion Gap 8 5-15 Blood Urea Nitrogen 14 9-23 mg/dL Creatinine 0.72 0.550-1.02 mg/dL Glomerular Filtration Rate Calc 89 >90 mL/min BUN/Creatinine Ratio 19.4 10.0-20.0 Serum Glucose 116 H 74-106 mg/dL Lactic Acid Level 1.1 0.4-2.0 mmol/L Calcium Level 10.5 H 8.7-10.4 mg/dL Total Bilirubin 0.4 0.2-1.0 mg/dL Aspartate Amino Transferase (AST) 46 H 13-40 U/L Alanine Aminotransferase (ALT) 122 H 7-40 U/L Alkaline Phosphatase 175 H 46-116 U/L Ammonia 15 11-32 umol/L Lactate Dehydrogenase 184 120-246 U/L Total Protein 7.1 5.7-8.2 g/dL Albumin 3.8 3.2-4.8 g/dL IV Hep-Lock was established The CBC shows a hemoglobin of 6.0 The hematocrit of 17.9 The chemistry panel is within normal limits The chest x-ray is negative At this time, the patient was being admitted We are typed and screen the patient and the patient will be transfused with a unit of packed red blood cells The patient was admitted Images Reviewed?: Images reviewed and evaluated by me Time of 1ST Reevaluation: 20:13 Reevaluation 1ST: Unchanged Patient Education/Counseling: Pt Unresponsive Family Education/Counseling: No Family Present Departure 1 Departure Time of Disposition: 20:13 Impression: Primary Impression: Altered mental status Qualified Codes: R41.82 - Altered mental status, unspecified Additional Impressions: Severe anemia Multiple myeloma Qualified Codes: C90.00 - Multiple myeloma not having achieved remission Disposition: ADMITTED INPATIENT Admit to: [facility] Condition: Fair Critical Care Note Critical Care Time?: Yes (35 min-critical care time only) Stability Stability form required: Yes Unstable for transfer: Telemetry monitoring (Telemetry monitoring required), ED Physician Assesment (Clinical assesment) Heart Score Heart Score: Heart Score Response (Comments) Value History N/A 0 EKG N/A 0 Age N/A 0 Risk Factors N/A 0 Troponin N/A 0 Total 0 BOBBY NESS MD May 26, 2024 20:02
[2024-05-26] MEDS: SODIUM CHLORIDE 0.9% 1,000 ML IV SCH (20:18)
[2024-05-26] MEDS: ACCU-CHEK COMFORT CURVE STRIP VI SCH (20:18)
[2024-05-26 20:41] LABS: % Iron Saturation 64.7 % (15-50)
[2024-05-26 20:45] LABS: Folate (Folic Acid) 7.69 ng/mL (>5.38)
[2024-05-26 21:20] LABS: Ferritin > 3300.0 ng/mL (10-291)
[2024-05-26 21:30] VITALS: BP 175/77; PULSE 139; RESP 24; TEMP 98.1
[2024-05-26 21:40] VITALS: BP 167/57; PULSE 138; RESP 22; TEMP 97.9
[2024-05-26 21:55] VITALS: BP 157/73; PULSE 132; RESP 27; TEMP 98.1
[2024-05-26 23:20] VITALS: BP 145/66; PULSE 116; RESP 20; TEMP 97.8
[2024-05-26 23:23] VITALS: BP 161/74; PULSE 117; RESP 17; TEMP 97.9
[2024-05-27] VITALS (10 sets, daily range): BP systolic 134–167; BP diastolic 67–81; PULSE 87–130; RESP 15–21; TEMP 98–99.4; O2SAT 99–100
[2024-05-27 00:39] LABS: Basophils # (auto) 0 10 ^3/uL (0-0.2); Basophils % (auto) 0.1 % (0.0-2.0); Eosinophils # (auto) 0 10 ^3/uL (0-0.8); Eosinophils % (auto) 0.1 % (0.0-7.0); Hematocrit 23.6 % (36.0-46.0); Hemoglobin 7.9 g/dL (12.2-16.2); Lymphocytes # (auto) 1.7 10 ^3/uL (0.4-5.4); Lymphocytes % (auto) 13.4 % (10.0-50.0); Mean Corpuscular Hemoglobin 27.8 pg (28.0-32.0); Mean Corpuscular Hgb Conc. 33.2 g/dL (32.0-36.0); Mean Corpuscular Volume 83.7 fL (80.0-100.0); Monocytes # (auto) 0.6 10 ^3/uL (0-1.3); Monocytes % (auto) 4.9 % (0.0-12.0); Neutrophils # (auto) 10.3 10 ^3/uL (1.6-8.6); Neutrophils % (auto) 81.5 % (37.0-80.0); Nucleated Red Blood Cells % 0.1 %; Platelet Count (auto) 95 10^3/uL (140-450); Red Blood Cells 2.82 10^6/uL (4.0-5.20); Red Cell Distribution Width 15.9 % (11.8-14.3); White Blood Cell 12.7 10^3/uL (4.4-10.8)
[2024-05-27] MEDS: hydrALAZINE HCL 20 MG/ML VL ONE (00:41)
[2024-05-27] MEDS: hydrALAZINE HCL 20 MG/ML VL IV PRN (00:43)
--- NOTE | 2024-05-27 00:50 | DVHINCON2 ---
Date of service: May 27, 2024 Family History: FH: breast cancer G8 SISTER FH: cancer G8 MOTHER, , Cause: Heart attack FH: heart attack FH: stroke G8 MOTHER, , Cause: Heart attack G8 FATHER, , Cause: Stroke Hypercholesterolemia G8 MOTHER, , Cause: Heart attack G8 FATHER, , Cause: Stroke Hypertension G8 MOTHER, , Cause: Heart attack G8 FATHER, , Cause: Stroke Allergies: Coded Allergies: NO KNOWN ALLERGIES (Unverified , 12/07/22) Home Meds Reported Medications Pantoprazole Sodium Sesquihydr (Pantoprazole Sodium) 40 Mg Tab, 40 MG PO DAILY for GERD, TAB 05/03/24 Rosuvastatin Calcium (Crestor) 20 Mg Tab, 1 TAB PO DAILY, #30 TAB 5 Refills 05/03/24 Lisinopril (Lisinopril) 10 Mg Tab, 10 MG PO DAILY for HTN for 30 Days, MG 05/03/24 Deferasirox (Jadenu) 360 Mg Tab, 360 MG PO DAILY for high iron, TAB 05/03/24 Glucose Blood (Freestyle Lite Test Strip) Lite Umu, XX BID for diabetes mellitus 12/30/23 Levothyroxine Sodium (Levothyroxine Sodium) 25 Mcg Tab, 1 TAB PO DAILY 06/14/23 Amlodipine Besylate (Amlodipine Besylate) 10 Mg Tab, 1 TAB PO DAILY 02/15/23 Potassium Chloride (Potassium Chloride ER) 20 Meq Tab, 1 TAB PO DAILY 02/15/23 Current Medications Current Medications Medications (Trade) Dose Ordered Sig/Mandi Route PRN Reason Start Time Stop Time Status Last Admin Diagnostic Test (Pha) (Accu-Chek Comfort Curve T) 1 strip IQ4HR 05/26/24 20:00 05/26/24 23:51 Insulin Human Regular (InsuLIN R) IQ4HR SC 05/26/24 20:00 05/27/24 00:24 Dextrose 50 ml UD PRN IV Blood Sugar LESS THAN 60 05/26/24 19:00 Sodium Chloride 1,000 ml @ 100 mls/hr Q10H IV 05/26/24 19:00 05/26/24 20:18 Lorazepam (Ativan Tablet) 0.5 mg Q6HP PRN PO ANXIETY 05/26/24 19:00 Al Hydrox/Mg Hydrox/Simethicone (Maalox Plus) 30 ml Q6HP PRN PO FOR STOMACH DISTRESS 05/26/24 19:00 Docusate Sodium (Colace Capsule) 100 mg BIDPRN PRN PO FOR CONSTIPATION 05/26/24 19:00 Acetaminophen (Tylenol Tablet) 650 mg Q6HP PRN PO PAIN SCALE 1-3 OR TEMP>100.4 05/26/24 19:00 Temazepam (Restoril) 15 mg QHSP PRN PO FOR INSOMNIA 05/26/24 19:00 Acetaminophen/ Hydrocodone Bitart ([place] 5/325MG Tab) 1 tab Q4HP PRN PO MODERATE PAIN (4-6 PAIN SCALE) 05/26/24 19:00 Ondansetron HCl (Zofran) 4 mg Q4HP PRN IV NAUSEA / VOMITING 05/26/24 19:00 Morphine Sulfate 2 mg Q4HPRN PRN IV SEVERE PAIN (7-10 PAIN SCALE) 05/26/24 19:00 Hydralazine HCl (Apresoline Injection) 10 mg Q6HP PRN IV SBP>150 05/27/24 00:15 05/27/24 00:43 Ceftriaxone Sodium 50 ml @ 100 mls/hr DAILY@09 IV 05/27/24 09:00 Vital Signs Vital Signs Date Time Temp Pulse Resp B/P (MAP) Pulse Ox O2 Delivery O2 Flow Rate FiO2 05/27/24 00:43 180/79 05/26/24 23:23 97.9 117 17 97.9 05/26/24 22:00 99 05/26/24 19:40 Nasal Cannula* 2 28 Labs/Diagnostic Data Labs Test 05/27/24 00:30 05/26/24 23:58 05/26/24 19:55 05/26/24 15:28 Range/Units White Blood Count 12.7 H 4.4-10.8 10^3/uL Red Blood Count 2.82 L 4.0-5.20 10^6/uL Hemoglobin 7.9 #L 12.2-16.2 g/dL Hematocrit 23.6 #L 36.0-46.0 % Mean Corpuscular Volume 83.7 80.0-100.0 fL Mean Corpuscular Hemoglobin 27.8 L 28.0-32.0 pg Mean Corpuscular Hemoglobin Concent 33.2 32.0-36.0 g/dL Red Cell Distribution Width 15.9 H 11.8-14.3 % Platelet Count 95 L 140-450 10^3/uL Mean Platelet Volume 9.3 6.9-10.8 fL Neutrophils (%) (Auto) 81.5 H 37.0-80.0 % Lymphocytes (%) (Auto) 13.4 10.0-50.0 % Monocytes (%) (Auto) 4.9 0.0-12.0 % Eosinophils (%) (Auto) 0.1 0.0-7.0 % Basophils (%) (Auto) 0.1 0.0-2.0 % Neutrophils # (Auto) 10.3 H 1.6-8.6 10 ^3/uL Lymphocytes # (Auto) 1.7 0.4-5.4 10 ^3/uL Monocytes # (Auto) 0.6 0-1.3 10 ^3/uL Eosinophils # (Auto) 0 0-0.8 10 ^3/uL Basophils # (Auto) 0 0-0.2 10 ^3/uL Nucleated Red Blood Cells 0.1 % POC Glucose 137 H 70-106 mg/dl Iron Level 216 H 50-170 ug/dL Total Iron Binding Capacity 334 250-425 ug/dL Percent Iron Saturation 64.7 H 15-50 % Ferritin > 3300.0 H 10-291 ng/mL Vitamin B12 Level 694 211-911 pg/mL Folic Acid 7.69 >5.38 ng/mL Urine Color Light-orange Yellow Urine Clarity Turbid H Clear Urine pH 6.5 5.0-9.0 Urine Specific [place] 1.017 1.001-1.035 Urine Protein 2+ H Negative Urine Ketones Negative Negative Urine Blood Trace H Negative /uL Urine Nitrite Negative Negative Urine Bilirubin Negative Negative Urine Urobilinogen Normal Negative mg/dL Urine Leukocyte Esterase Negative Negative /uL Urine RBC 1 0 - 4 /hpf Urine WBC 2 0 - 5 /hpf Urine Squamous Epithelial Cells Few <5 /hpf Urine Amorphous Crystals Few None Seen /hpf Urine Bacteria Few H None Seen /hpf Urine Mucus Few None Seen Urine Glucose Normal Normal mg/dL Test 05/26/24 15:09 Range/Units Reticulocyte Count (auto) 0.06 L 0.5-1.5 % Sodium Level 138 136-145 mmol/L Potassium Level 4.1 3.5-5.1 mmol/L Chloride Level 106 98-107 mmol/L Carbon Dioxide Level 24 20-31 mmol/L Anion Gap 8 5-15 Blood Urea Nitrogen 14 9-23 mg/dL Creatinine 0.72 0.550-1.02 mg/dL Glomerular Filtration Rate Calc 89 >90 mL/min BUN/Creatinine Ratio 19.4 10.0-20.0 Serum Glucose 116 H 74-106 mg/dL Lactic Acid Level 1.1 0.4-2.0 mmol/L Calcium Level 10.5 H 8.7-10.4 mg/dL Total Bilirubin 0.4 0.2-1.0 mg/dL Aspartate Amino Transferase (AST) 46 H 13-40 U/L Alanine Aminotransferase (ALT) 122 H 7-40 U/L Alkaline Phosphatase 175 H 46-116 U/L Ammonia 15 11-32 umol/L Lactate Dehydrogenase 184 120-246 U/L Total Protein 7.1 5.7-8.2 g/dL Albumin 3.8 3.2-4.8 g/dL Plan/Recommendation [facility] Note # Demographics Consult Type: Acute Stroke Level 1 (0-4.5 hrs) Patient Location: Emergency Room First Name: SHYANNE Last Name: KENDRA Date of : 1955 Age: 69 Gender: Female Facility: [facility] Time of Initial Page (): 05/27/2024, 00:19 Time of Return Call (): 05/27/2024, 00:19 # HPI Chief Complaint: - altered mental state History: 69 y/o woman with multiple visits for anemia requiring transfusions presents with altered mentation. Staff noted right facial droop and lack of speech at 23:30 but family reported she was not at baseline prior to arrival to the ER. # Scores Time of exam and NIHSS (): 05/27/2024, 00:38 Level of Consciousness 1a: [0] = Alert; keenly responsive LOC Questions 1b: [2] = Answers neither correctly LOC Commands 1c: [0] = Performs both tasks correctly Best Gaze 2: [0] = Normal Visual 3: [0] = No visual loss Facial Palsy 4: [2] = Partial paralysis Motor Arm Left 5a: [2] = Some effort against gravity Motor Arm Right 5b: [2] = Some effort against gravity Motor Leg Left 6a: [2] = Some effort against gravity Motor Leg Right 6b: [2] = Some effort against gravity Limb Ataxia 7: [0] = Absent Sensory 8: [0] = Normal Best Language 9: [3] = Mute Dysarthria 10: [0] = Normal Extinction and Inattention 11: [0] = No abnormality NIHSS Total: 15 # Exam SBP: 161 DBP: 74 # Data Other Labs: ammonia 15 B12 694 Hgb 6, Hct 17.9, Plt [address]: - no bleed - preliminarily reviewed by me, please refer to radiology read for official reading # Assessment Impression: - Altered Mental Status Possible stroke given he cessation of speech and new right facial droop # Plan Thrombolytic/Intervention: Possible IA candidate Thrombolytic Exclusion: Last normal >4.5 hours (prior to arrival), anemia requiring transfusions. Possible IA Candidate: - CTA pending Target Blood Pressure: SBP < 180 Labs: - hemoglobin A1c - lipid panel Imaging: (urgency: STAT): - CT Angiogram Head and CT Angiogram Neck AND call back with results if abnormal Imaging: (urgency: routine): - MRI Brain without contrast Diagnostic Test: - echo without bubble study Therapy/Evaluation: - PT/OT evaluation - speech/swallow consultation Medication: - start statin with goal of LDL < 70 Other: - If patient has any neurological deterioration please call me back immediately - LDL < 70 - permissive hypertension - telemetry monitoring Additional Recommendations: Extent of stroke w/u to depend on MRI results and clinical course. Consider aspirin 81mg if okay from anemia standpoint # Logistics Attestation of consult completion: The patient is located at: [facility]. Facility staff participated in the visit. I performed this telemedicine visit from my offsite office utilizing interactive 2 way audio and visual telecommunication technology. Total time spent in telemedicine encounter: I spent 20 minutes reviewing clinical data and/or imaging, obtaining history, examining the patient, communicating with the onsite care team, and in preparation of this report. # Demographics First Name: SHYANNE Last Name: KENDRA Facility: [facility] Plan discussed with: Other (nursing staff) SHAUN WARREN MD May 27, 2024 00:50
--- NOTE | 2024-05-27 00:55 | DVH ---
CT STROKE CTH INDICATION: Stroke. EXAM DATE: 05/27/2024 12:13 AM COMPARISON: CT HEAD WITHOUT CONTRAST on DOS: 12/30/23 TECHNIQUE: CT of the head without intravenous contrast. RADIATION DOSE: CTDIvol: 53 mGy, DLP: 1048 mGy*cm FINDINGS: There is no evidence of acute intracranial hemorrhage, extra-axial collection, mass effect, midline s hift, herniation or hydrocephalus. The ventricles, sulci and cisterns are age appropriate. The swartz -white differentiation is intact. The visualized paranasal sinuses and mastoid air cells are clear. There is no evidence of skull fracture. The surrounding soft tissues and osseous structures are unr emarkable. [Moderate periventricular white matter disease is present, likely secondary to microvascular angiopat hy.] IMPRESSION: No evidence of acute intracranial hemorrhage, mass effect, hydrocephalus or skull fracture. If there is high clinical concern for acute infarct consider MRI for further evaluation
[2024-05-27] MEDS: cefTRIAXone 1GM/50ML D5W 50 ML IV SCH (02:45)
[2024-05-27] MEDS ORDERED: cefTRIAXone 1GM/50ML D5W 50 ML IV SCH (09:00)
[2024-05-27 09:07] LABS: Basophils # (auto) 0 10 ^3/uL (0-0.2); Eosinophils # (auto) 0 10 ^3/uL (0-0.8); Eosinophils % (auto) 0.2 % (0.0-7.0); Hemoglobin 8.4 g/dL (12.2-16.2); Lymphocytes # (auto) 1.7 10 ^3/uL (0.4-5.4); Monocytes # (auto) 0.5 10 ^3/uL (0-1.3); Monocytes % (auto) 4.9 % (0.0-12.0)
[2024-05-27 09:10] LABS: Basophils % (auto) 0.1 % (0.0-2.0); Hematocrit 24.3 % (36.0-46.0); Lymphocytes % (auto) 16.3 % (10.0-50.0); Mean Corpuscular Hemoglobin 28.4 pg (28.0-32.0); Mean Corpuscular Hgb Conc. 34.6 g/dL (32.0-36.0); Mean Corpuscular Volume 81.9 fL (80.0-100.0); Neutrophils # (auto) 8.2 10 ^3/uL (1.6-8.6); Neutrophils % (auto) 78.5 % (37.0-80.0); Platelet Count (auto) 81 10^3/uL (140-450); Red Blood Cells 2.97 10^6/uL (4.0-5.20); Red Cell Distribution Width 15.2 % (11.8-14.3); White Blood Cell 10.5 10^3/uL (4.4-10.8)
[2024-05-27 09:30] LABS: Potassium 3.6 mmol/L (3.5-5.1); Sodium 138 mmol/L (136-145)
[2024-05-27 09:31] LABS: Anion Gap 3 (5-15); Calcium 10.4 mg/dL (8.7-10.4); Carbon Dioxide 27 mmol/L (20-31)
[2024-05-27 09:36] LABS: BUN/Creatinine Ratio 20.3 (10.0-20.0); Blood Urea Nitrogen 13 mg/dL (9-23)
[2024-05-27 09:47] LABS: Chloride 108 mmol/L (98-107); Glucose 121 mg/dL (74-106)
--- NOTE | 2024-05-27 11:52 | DVHPN2 ---
Reviewed: Care Plan, H&P, Labs, Medications, Previous Orders, Radiology Changes from previous H/P or p: No Changes, Changes Eyes: No Pain, No Vision change, No Conjunctivae inflammation, No Eyelid inflammation, No Other, No Redness ENT: No Ear pain, No Ear discharge, No Nose pain, No Nose discharge, No Nose congestion, No Mouth pain, No Mouth swelling, No Throat pain, No Throat swelling, No Other Cardiovascular: No Chest Pain, No Palpitations, No Orthopnea, No Paroxysmal Noc. Dyspnea, No Edema, No Lt Headedness, No Other Respiratory: No Cough, No Dry, No Shortness of breath, No SOB with excertion, No Wheezing, No Hemoptysis, No Pleuritic Pain, No Sputum, No Other Gastrointestinal: No Nausea, No Vomiting, No Abdominal Pain, No Diarrhea, No Constipation, No Melena, No Hematochezia, No Other Genitourinary: No Dysuria, No Frequency, No Incontinence, No Hematuria, No Retention, No Other Musculoskeletal: No other, No neck pain, No shoulder pain, No arm pain, No back pain, No hand pain, No leg pain, No foot pain Skin: No Rash, No Lesions, No Jaundice, No Bruising, No Other Objective Vitals Vital Signs Date Time Temp Pulse Resp B/P (MAP) Pulse Ox O2 Delivery O2 Flow Rate FiO2 05/27/24 09:23 98.1 97 18 155/73 (100) 99 98.1 05/27/24 04:05 Room Air* 0 21 Intake/Output Intake and Output 05/27/24 07:00 Intake Total 2350 ml Output Total 0 ml Balance 2350 ml Intake Oral 0 ml IV Total 850 ml Blood Product 1200 ml Other 300 ml Output Urine Total 0 ml Medications Current Medications Medications Dose Ordered Sig/Mandi Route Start Time Stop Time Status Last Admin Dose Admin Diagnostic Test (Pha) 1 strip IQ4HR 05/26/24 20:00 05/27/24 08:18 1 STRIP Insulin Human Regular IQ4HR SC 05/26/24 20:00 05/27/24 04:00 2 UNITS Dextrose 50 ml UD PRN IV 05/26/24 19:00 Sodium Chloride 1,000 ml @ 100 mls/hr Q10H IV 05/26/24 19:00 05/27/24 04:04 100 MLS/HR Lorazepam 0.5 mg Q6HP PRN PO 05/26/24 19:00 Al Hydrox/Mg Hydrox/Simethicone 30 ml Q6HP PRN PO 05/26/24 19:00 Docusate Sodium 100 mg BIDPRN PRN PO 05/26/24 19:00 Acetaminophen 650 mg Q6HP PRN PO 05/26/24 19:00 Temazepam 15 mg QHSP PRN PO 05/26/24 19:00 Acetaminophen/ Hydrocodone Bitart 1 tab Q4HP PRN PO 05/26/24 19:00 Ondansetron HCl 4 mg Q4HP PRN IV 05/26/24 19:00 Morphine Sulfate 2 mg Q4HPRN PRN IV 05/26/24 19:00 Hydralazine HCl 10 mg Q6HP PRN IV 05/27/24 00:15 05/27/24 00:43 10 MG Ceftriaxone Sodium 50 ml @ 100 mls/hr DAILY@0100 IV 05/27/24 01:00 05/27/24 02:45 100 MLS/HR Laboratory Results Laboratory Tests 05/27/24 08:28 Chemistry Test 05/26/24 15:09 05/27/24 08:28 Albumin 3.8 g/dL (3.2-4.8) Calcium Level 10.5 mg/dL (8.7-10.4) H 10.4 mg/dL (8.7-10.4) Total Protein 7.1 g/dL (5.7-8.2) LFT Test 05/26/24 15:09 Alanine Aminotransferase (ALT) 122 U/L (7-40) H Alkaline Phosphatase 175 U/L (46-116) H Aspartate Amino Transferase (AST) 46 U/L (13-40) H Total Bilirubin 0.4 mg/dL (0.2-1.0) Urinalysis Test 05/26/24 15:28 Urine Color Light-orange (Yellow) Urine Clarity Turbid (Clear) H Urine pH 6.5 (5.0-9.0) Urine Specific [place] 1.017 (1.001-1.035) Urine Protein 2+ (Negative) H Urine Ketones Negative (Negative) Urine Blood Trace /uL (Negative) H Urine Nitrite Negative (Negative) Urine Bilirubin Negative (Negative) Urine Urobilinogen Normal mg/dL (Negative) Urine Leukocyte Esterase Negative /uL (Negative) Urine RBC 1 /hpf (0 - 4) Urine WBC 2 /hpf (0 - 5) Urine Squamous Epithelial Cells Few /hpf (<5) Urine Amorphous Crystals Few /hpf (None Seen) Urine Bacteria Few /hpf (None Seen) H Urine Mucus Few (None Seen) Urine Glucose Normal mg/dL (Normal) Labs and/or images reviewed: Labs reviewed by me, Image(s) reviewed by me Assessment/Plan Assessment/Plan Acute severe symptomatic anemia hemoglobin 6.0, improved to 8.4 after 2 units RBC transfusion History of multiple myeloma History of multiple blood transfusions in the past Hypertension Diabetes Chronic anemia Possible stroke with a right facial droop on the slurry speech: CT head negative, MRI brain pending,Tele Neurology consult by Dr. Ward appreciated, not a candidate for aspirin because of recent anemia, awaiting consultation by Dr. Hall Plan discussed with: Patient My Orders Orders - ANAIS MILLRE MD Procedure Category Date Status Time * Neurology Consult CONS 05/27/24 Transmitted 11:46 Date of Service: May 27, 2024 Billing Provider: ANAIS MILLER MD Common Visit Codes: [id number] INP/OBS CARE(HIGH) ANAIS MILLER MD May 27, 2024 11:52
--- NOTE | 2024-05-27 13:36 | DVH ---
EXAMINATION: MRI BRAIN HEAD WO CONTRAST INDICATION: Right-sided weakness slurry speech ruled out stroke COMPARISON: CT HEAD WITHOUT CONTRAST on DOS: 12/30/23, CT LS SPINE WO CONTRAST on DOS: 09/04/23 TECHNIQUE: Multiplanar, multisequence magnetic resonance imaging of the brain was performed without the use of i ntravenous contrast. FINDINGS: Evaluation severely limited by patient motion artifact. No evidence of acute or remote infarct. No intracranial hemorrhage. No mass effect. There is periventricular/deep white matter T2 hyperintensity is nonspecific, but most commonly associ ated with chronic microvascular disease. The ventricles and sulci are normal in size for age. Clear basal cisterns. Flow voids in the major intracranial vessels are maintained. No abnormality of the orbits. Mucoperiosteal thickening within the bilateral ethmoid and sphenoid sinuses as well as the left maxil barry sinus. The visualized portions of the bilateral mastoid air cells demonstrate normal signal. No abnormality of the visualized osseous structures and extracranial soft tissues. IMPRESSION: 1. Evaluation severely limited by patient motion artifact. DWI imaging demonstrates no evidence for a cute ischemia. No evidence for intracranial hemorrhage, mass effect, or hydrocephalus. HS:Y
[2024-05-27 14:02] LABS: Basophils # (auto) 0 10 ^3/uL (0-0.2); Basophils % (auto) 0.1 % (0.0-2.0); Hematocrit 22.3 % (36.0-46.0); Lymphocytes # (auto) 1.8 10 ^3/uL (0.4-5.4); Monocytes # (auto) 0.5 10 ^3/uL (0-1.3)
[2024-05-27 14:03] LABS: Eosinophils # (auto) 0.1 10 ^3/uL (0-0.8); Eosinophils % (auto) 0.6 % (0.0-7.0); Hemoglobin 7.6 g/dL (12.2-16.2); Lymphocytes % (auto) 19.1 % (10.0-50.0); Mean Corpuscular Hemoglobin 27.9 pg (28.0-32.0); Mean Corpuscular Hgb Conc. 34.2 g/dL (32.0-36.0); Mean Corpuscular Volume 81.5 fL (80.0-100.0); Monocytes % (auto) 5.2 % (0.0-12.0); Platelet Count (auto) 74 10^3/uL (140-450); Red Blood Cells 2.74 10^6/uL (4.0-5.20); Red Cell Distribution Width 14.9 % (11.8-14.3); White Blood Cell 9.4 10^3/uL (4.4-10.8)
--- NOTE | 2024-05-27 19:12 | ECG ---
[facility] Test Date: 2024-05-26 Test Time: 15:39:34 Pat Name: SHYANNE GARDNER Department: ER Room: 0276 A Gender: F [employer]: DR HARO: 1955 Requested By: BOBBY NESS Order Number: [id number] Reading MD: Alireza Castro Measurements Intervals [place] Rate: 105 P: 83 NH: 140 QRS: 75 QRSD: 71 T: 56 QT: 328 QTc: 434 Interpretive Statements Sinus tachycardia Baseline wander in lead(s) V6 Electronically Signed On 05-28-2024 12:46:23 PST by Alireza Castro Please click the below link to view image of tracing.
[2024-05-27] MEDS: guaiFENesin-DM 100/10mg/5ml SYR PO PRN (20:26)
--- NOTE | 2024-05-27 20:46 | DVHINCON2 ---
Date of service: May 27, [address] Ferro Reason for Consultation Stroke with slurred speech History of Present Illness Ms. Sutton is a 69 years old right-handed female with a history of hypertension, diabetes, dyslipidemia, hypothyroidism, anemia, multiple myeloma, she was admitted on 05/26/2024 with a chief company of [employer], at this time, she was sleepy, only oriented to herself I saw her on 12/30/23 for carotid stenosis and syncope, at that time, I noticed intermittent mild left facial spasms and I suspect intermittent left hemifacial spasms Apparently, the patient was noticed to have altered mental status, right facial drooping, diminished and slurry speech Per my observation, I can not confirm per right facial drooping, but I saw intermittent twitching in the left mouth corner Urinalysis, 05/26/2024: WBC: 1, urine leukocyte esterase: 1 WBC/HB/PLT/MCV, 12/30/2023: 9/7.3/110/85.7, 05/27/24: 9.4/7.5/74/81.5 TBI/AST/ALT/AP, 12/30/2023: 0.2/41/106/146, 05/26/2024: 0.4/46/122/175 Vitamin B12, 12/30/2023: 489, 05/26/2024: 694 Folic acid, 05/26/2020 4:7.69 TSH, 12/29/2023: 13.2 FT4, 12/30/2023: 0.56 Carotid Doppler, 12/30/2023: 1. 50-69% stenosis of the level of the left proximal ICA. 2. No hemodynamically significant stenosis noted in the right carotid system CXR, 05/26/2024: No acute disease. CT head, 05/27/2024: No evidence of acute intracranial hemorrhage, mass effect, hydrocephalus or skull fracture. If there is high clinical concern for acute infarct consider MRI for further evaluation MRI head, 05/27/2024: Evaluation severely limited by patient motion artifact. DWI imaging demonstrates no evidence for acute ischemia. No evidence for intracranial hemorrhage, mass effect, or hydrocephalus CT head, 12/30/2023: No evidence of acute intracranial abnormality. Past Medical History Hypertension, diabetes, dyslipidemia, hypothyroidism, multiple myeloma, anemia, GERD Past Surgical History Appendectomy, hysterectomy Family History: FH: breast cancer G8 SISTER FH: cancer G8 MOTHER, , Cause: Heart attack FH: heart attack FH: stroke G8 MOTHER, , Cause: Heart attack G8 FATHER, , Cause: Stroke Hypercholesterolemia G8 MOTHER, , Cause: Heart attack G8 FATHER, , Cause: Stroke Hypertension G8 MOTHER, , Cause: Heart attack G8 FATHER, , Cause: Stroke Family History Hypertension, dyslipidemia, cancer Social History She smokes, no history of drug or alcohol abuse Allergies: Coded Allergies: NO KNOWN ALLERGIES (Unverified , 12/07/22) Home Meds Reported Medications Pantoprazole Sodium Sesquihydr (Pantoprazole Sodium) 40 Mg Tab, 40 MG PO DAILY for GERD, TAB 05/03/24 Rosuvastatin Calcium (Crestor) 20 Mg Tab, 1 TAB PO DAILY, #30 TAB 5 Refills 05/03/24 Lisinopril (Lisinopril) 10 Mg Tab, 10 MG PO DAILY for HTN for 30 Days, MG 05/03/24 Deferasirox (Jadenu) 360 Mg Tab, 360 MG PO DAILY for high iron, TAB 05/03/24 Glucose Blood (Freestyle Lite Test Strip) Lite Umu, XX BID for diabetes mellitus 12/30/23 Levothyroxine Sodium (Levothyroxine Sodium) 25 Mcg Tab, 1 TAB PO DAILY 06/14/23 Amlodipine Besylate (Amlodipine Besylate) 10 Mg Tab, 1 TAB PO DAILY 02/15/23 Potassium Chloride (Potassium Chloride ER) 20 Meq Tab, 1 TAB PO DAILY 02/15/23 Current Medications Current Medications Medications (Trade) Dose Ordered Sig/Mandi Route PRN Reason Start Time Stop Time Status Last Admin Hydralazine HCl (Apresoline Injection) 10 mg Q6HP PRN IV SBP>150 05/27/24 00:15 05/27/24 00:43 Ceftriaxone Sodium 50 ml @ 100 mls/hr DAILY@09 IV 05/27/24 09:00 05/27/24 00:56 DC Ceftriaxone Sodium 50 ml @ 100 mls/hr DAILY@0100 IV 05/27/24 01:00 05/27/24 02:45 Guaifenesin/ Dextromethorphan (Robitussin-Dm Liquid) 10 ml Q6HP PRN PO FOR COUGH 05/27/24 19:15 05/27/24 20:26 Review of Systems As above, the other systems are negative Vital Signs Vital Signs Date Time Temp Pulse Resp B/P (MAP) Pulse Ox O2 Delivery O2 Flow Rate FiO2 05/27/24 13:21 98.0 87 21 134/67 (89) 100 98.0 05/27/24 08:05 Nasal Cannula* 4 36 Physical Exam GENERAL EXAM: General: the patient is well developed and nourished. No acute distress, but she looks weak. HEENT: Normocephalic, neck is supple, no carotid bruits. No mass. RESPIRATORY: Normal respiratory effort with symmetrical lung expansion. Lungs clear to auscultation. CARDIOVASCULAR: Regular rate and rhythm with no murmurs. S1, S2. ABDOMEN: Soft, nontender, normal bowel sound NEUROLOGICAL: MENTAL STATUS: Subjective SPEECH, LANGUAGE, HIGHER CORTICAL FUNCTION: no aphasia or dysathria. But she only speaks a few words with weak voice CRANIAL NERVES: #2: Intact visual chapa to confrontation. #3,4,6: Pupils are equal, round and reactive. EOMs full and conjugate. No nystagmus. #5: Facial sensation intact in all three divisions bilaterally. Mandibular strength intact. #7: Facial muscles symmetrical and strength intact. Intermittent mild muscle spasm involving the whole left face #8: Hearing grossly normal to voice. #9,10: Uvula and soft palate rise in the midline. Swallow and voice are normal. #11: Trapezius and sternomastoid strength intact bilaterally. #12: Tongue midline. No fasciculations or atrophy. SENSATION: Sensation to touch and pinprick is fine MOTOR: Normal tone in the upper and lower extremity. Normal muscle bulk. No fasciculations. No abnormal movements or posturing. She can only moves the arms and the legs slightly REFLEXES: Deep tendon reflexes normal and symmetrical. No pathological reflexes. CEREBELLAR/COORDINATION: Deferred GAIT/STATION: deferred. Labs/Diagnostic Data Labs Test 05/27/24 13:40 05/27/24 12:18 05/27/24 08:28 05/26/24 19:55 Range/Units White Blood Count 9.4 4.4-10.8 10^3/uL Red Blood Count 2.74 L 4.0-5.20 10^6/uL Hemoglobin 7.6 L 12.2-16.2 g/dL Hematocrit 22.3 L 36.0-46.0 % Mean Corpuscular Volume 81.5 80.0-100.0 fL Mean Corpuscular Hemoglobin 27.9 L 28.0-32.0 pg Mean Corpuscular Hemoglobin Concent 34.2 32.0-36.0 g/dL Red Cell Distribution Width 14.9 H 11.8-14.3 % Platelet Count 74 L 140-450 10^3/uL Mean Platelet Volume 8.7 6.9-10.8 fL Neutrophils (%) (Auto) 75.0 37.0-80.0 % Lymphocytes (%) (Auto) 19.1 10.0-50.0 % Monocytes (%) (Auto) 5.2 0.0-12.0 % Eosinophils (%) (Auto) 0.6 0.0-7.0 % Basophils (%) (Auto) 0.1 0.0-2.0 % Neutrophils # (Auto) 7.0 1.6-8.6 10 ^3/uL Lymphocytes # (Auto) 1.8 0.4-5.4 10 ^3/uL Monocytes # (Auto) 0.5 0-1.3 10 ^3/uL Eosinophils # (Auto) 0.1 0-0.8 10 ^3/uL Basophils # (Auto) 0 0-0.2 10 ^3/uL Nucleated Red Blood Cells 0.0 % POC Glucose 111 H 70-106 mg/dl Sodium Level 138 136-145 mmol/L Potassium Level 3.6 3.5-5.1 mmol/L Chloride Level 108 H 98-107 mmol/L Carbon Dioxide Level 27 20-31 mmol/L Anion Gap 3 L 5-15 Blood Urea Nitrogen 13 9-23 mg/dL Creatinine 0.64 0.550-1.02 mg/dL Glomerular Filtration Rate Calc 94 >90 mL/min BUN/Creatinine Ratio 20.3 H 10.0-20.0 Serum Glucose 121 H 74-106 mg/dL Calcium Level 10.4 8.7-10.4 mg/dL Iron Level 216 H 50-170 ug/dL Total Iron Binding Capacity 334 250-425 ug/dL Percent Iron Saturation 64.7 H 15-50 % Ferritin > 3300.0 H 10-291 ng/mL Vitamin B12 Level 694 211-911 pg/mL Folic Acid 7.69 >5.38 ng/mL Test 05/26/24 15:28 05/26/24 15:09 Range/Units Urine Color Light-orange Yellow Urine Clarity Turbid H Clear Urine pH 6.5 5.0-9.0 Urine Specific [place] 1.017 1.001-1.035 Urine Protein 2+ H Negative Urine Ketones Negative Negative Urine Blood Trace H Negative /uL Urine Nitrite Negative Negative Urine Bilirubin Negative Negative Urine Urobilinogen Normal Negative mg/dL Urine Leukocyte Esterase Negative Negative /uL Urine RBC 1 0 - 4 /hpf Urine WBC 2 0 - 5 /hpf Urine Squamous Epithelial Cells Few <5 /hpf Urine Amorphous Crystals Few None Seen /hpf Urine Bacteria Few H None Seen /hpf Urine Mucus Few None Seen Urine Glucose Normal Normal mg/dL Reticulocyte Count (auto) 0.06 L 0.5-1.5 % Lactic Acid Level 1.1 0.4-2.0 mmol/L Total Bilirubin 0.4 0.2-1.0 mg/dL Aspartate Amino Transferase (AST) 46 H 13-40 U/L Alanine Aminotransferase (ALT) 122 H 7-40 U/L Alkaline Phosphatase 175 H 46-116 U/L Ammonia 15 11-32 umol/L Lactate Dehydrogenase 184 120-246 U/L Total Protein 7.1 5.7-8.2 g/dL Albumin 3.8 3.2-4.8 g/dL Microbiology Date/Time Source Procedure Growth Status 05/26/24 15:09 Blood Blood Culture - Preliminary NO GROWTH AFTER 24 HOURS OF INCUBATION. Resulted Assessment Passing out event Presyncopal event, multifactorial, multiple myeloma, anemia, general weakness are among the contributing factors Rule out seizure Rule out stroke or other central nervous system disorder Left facial muscle twitching Left hemifacial spasm Rule out partial seizure Multiple myeloma Anemia Kidney failure Carotid stenosis, which may not cause the syncopal events Plan/Recommendation Monitoring Supportive treatment Telemetry EEG Follow-up MRI brain scan Consider Up to chair when she was stronger Consider Physical therapy when she was strongly Plan discussed with: Other SUSANA OLIVER MD May 27, 2024 20:46
[2024-05-28] VITALS (10 sets, daily range): BP systolic 117–162; BP diastolic 55–81; PULSE 70–89; RESP 15–20; TEMP 97.4–98.7; O2SAT 98–100
--- NOTE | 2024-05-28 11:33 | DVHPN2 ---
Reviewed: Care Plan, H&P, Labs, Medications, Previous Orders, Radiology Changes from previous H/P or p: No Changes Eyes: No Pain, No Vision change, No Conjunctivae inflammation, No Eyelid inflammation, No Other, No Redness ENT: No Ear pain, No Ear discharge, No Nose pain, No Nose discharge, No Nose congestion, No Mouth pain, No Mouth swelling, No Throat pain, No Throat swelling, No Other Cardiovascular: No Chest Pain, No Palpitations, No Orthopnea, No Paroxysmal Noc. Dyspnea, No Edema, No Lt Headedness, No Other Respiratory: No Cough, No Dry, No Shortness of breath, No SOB with excertion, No Wheezing, No Hemoptysis, No Pleuritic Pain, No Sputum, No Other Gastrointestinal: No Nausea, No Vomiting, No Abdominal Pain, No Diarrhea, No Constipation, No Melena, No Hematochezia, No Other Genitourinary: No Dysuria, No Frequency, No Incontinence, No Hematuria, No Retention, No Other Musculoskeletal: No other, No neck pain, No shoulder pain, No arm pain, No back pain, No hand pain, No leg pain, No foot pain Skin: No Rash, No Lesions, No Jaundice, No Bruising, No Other Objective Vitals Vital Signs Date Time Temp Pulse Resp B/P (MAP) Pulse Ox O2 Delivery O2 Flow Rate FiO2 05/28/24 09:00 98.0 72 16 153/68 (96) 100 98.0 05/28/24 08:30 Nasal Cannula* 4 36 Intake/Output Intake and Output 05/28/24 07:00 Intake Total 310 ml Output Total 1245 ml Balance -935 ml Intake Oral 260 ml IV Total 50 ml Output Urine Total 1245 ml Medications Current Medications Medications Dose Ordered Sig/Mandi Route Start Time Stop Time Status Last Admin Dose Admin Diagnostic Test (Pha) 1 strip IQ4HR 05/26/24 20:00 05/28/24 06:13 1 STRIP Insulin Human Regular IQ4HR SC 05/26/24 20:00 05/27/24 20:26 3 UNITS Dextrose 50 ml UD PRN IV 05/26/24 19:00 Sodium Chloride 1,000 ml @ 100 mls/hr Q10H IV 05/26/24 19:00 05/27/24 16:07 100 MLS/HR Lorazepam 0.5 mg Q6HP PRN PO 05/26/24 19:00 Al Hydrox/Mg Hydrox/Simethicone 30 ml Q6HP PRN PO 05/26/24 19:00 Docusate Sodium 100 mg BIDPRN PRN PO 05/26/24 19:00 Acetaminophen 650 mg Q6HP PRN PO 05/26/24 19:00 Temazepam 15 mg QHSP PRN PO 05/26/24 19:00 Acetaminophen/ Hydrocodone Bitart 1 tab Q4HP PRN PO 05/26/24 19:00 Ondansetron HCl 4 mg Q4HP PRN IV 05/26/24 19:00 Morphine Sulfate 2 mg Q4HPRN PRN IV 05/26/24 19:00 Hydralazine HCl 10 mg Q6HP PRN IV 05/27/24 00:15 05/27/24 00:43 10 MG Ceftriaxone Sodium 50 ml @ 100 mls/hr DAILY@0100 IV 05/27/24 01:00 05/28/24 02:13 100 MLS/HR Guaifenesin/ Dextromethorphan 10 ml Q6HP PRN PO 05/27/24 19:15 05/27/24 20:26 10 ML Laboratory Results Laboratory Tests 05/27/24 08:28 05/27/24 13:40 Urinalysis Test 05/26/24 15:28 Urine Color Light-orange (Yellow) Urine Clarity Turbid (Clear) H Urine pH 6.5 (5.0-9.0) Urine Specific [place] 1.017 (1.001-1.035) Urine Protein 2+ (Negative) H Urine Ketones Negative (Negative) Urine Blood Trace /uL (Negative) H Urine Nitrite Negative (Negative) Urine Bilirubin Negative (Negative) Urine Urobilinogen Normal mg/dL (Negative) Urine Leukocyte Esterase Negative /uL (Negative) Urine RBC 1 /hpf (0 - 4) Urine WBC 2 /hpf (0 - 5) Urine Squamous Epithelial Cells Few /hpf (<5) Urine Amorphous Crystals Few /hpf (None Seen) Urine Bacteria Few /hpf (None Seen) H Urine Mucus Few (None Seen) Urine Glucose Normal mg/dL (Normal) Microbiology Microbiology Date/Time Source Procedure Growth Status 05/26/24 15:09 Blood Blood Culture - Preliminary NO GROWTH AFTER 24 HOURS OF INCUBATION. Resulted Labs and/or images reviewed: Labs reviewed by me, Image(s) reviewed by me Assessment/Plan Assessment/Plan Acute severe symptomatic anemia hemoglobin 6.0, improved to 8.4 after 2 units RBC transfusion History of multiple myeloma History of multiple blood transfusions in the past Hypertension Diabetes Chronic anemia Moderate dementia Possible stroke with a right facial droop on the slurry speech: CT head negative, MRI brain negative,Tele Neurology consult by Dr. Ward appreciated, not a candidate for aspirin because of recent anemia, Neurology consult by Dr. Hall appreciated Spoke with son Elijah on the phone and he agreed with the discharge plan Plan discussed with: Patient My Orders Orders - ANAIS MILLER MD Procedure Category Date Status Time * Neurology Consult CONS 05/27/24 Transmitted 11:46 Brain Head Wo Contrast MRI 05/27/24 Resulted 11:53 Initiate Vte RIDDHI 05/28/24 In Process Prophylaxis 10:58 Date of Service: May 28, 2024 Billing Provider: ANAIS MILLER MD Common Visit Codes: [id number] INP/OBS CARE(HIGH) ANAIS MILLER MD May 28, 2024 11:33
--- NOTE | 2024-05-28 11:39 | DVHDS2 ---
Discharge Summary Date of Admission May 26, 2024 at 18:51 Date of Discharge: May 28, 2024 Admitting Diagnosis Generalized weakness and confusion Wounds: None Labs/Diagnostic Data: Laboratory Results Test 05/28/24 11:05 05/27/24 13:40 05/27/24 08:28 05/26/24 19:55 POC Glucose 96 mg/dl (70-106) White Blood Count 9.4 10^3/uL (4.4-10.8) Red Blood Count 2.74 10^6/uL (4.0-5.20) Hemoglobin 7.6 g/dL (12.2-16.2) Hematocrit 22.3 % (36.0-46.0) Mean Corpuscular Volume 81.5 fL (80.0-100.0) Mean Corpuscular Hemoglobin 27.9 pg (28.0-32.0) Mean Corpuscular Hemoglobin Concent 34.2 g/dL (32.0-36.0) Red Cell Distribution Width 14.9 % (11.8-14.3) Platelet Count 74 10^3/uL (140-450) Mean Platelet Volume 8.7 fL (6.9-10.8) Neutrophils (%) (Auto) 75.0 % (37.0-80.0) Lymphocytes (%) (Auto) 19.1 % (10.0-50.0) Monocytes (%) (Auto) 5.2 % (0.0-12.0) Eosinophils (%) (Auto) 0.6 % (0.0-7.0) Basophils (%) (Auto) 0.1 % (0.0-2.0) Neutrophils # (Auto) 7.0 10 ^3/uL (1.6-8.6) Lymphocytes # (Auto) 1.8 10 ^3/uL (0.4-5.4) Monocytes # (Auto) 0.5 10 ^3/uL (0-1.3) Eosinophils # (Auto) 0.1 10 ^3/uL (0-0.8) Basophils # (Auto) 0 10 ^3/uL (0-0.2) Nucleated Red Blood Cells 0.0 % Sodium Level 138 mmol/L (136-145) Potassium Level 3.6 mmol/L (3.5-5.1) Chloride Level 108 mmol/L (98-107) Carbon Dioxide Level 27 mmol/L (20-31) Anion Gap 3 (5-15) Blood Urea Nitrogen 13 mg/dL (9-23) Creatinine 0.64 mg/dL (0.550-1.02) Glomerular Filtration Rate Calc 94 mL/min (>90) BUN/Creatinine Ratio 20.3 (10.0-20.0) Serum Glucose 121 mg/dL (74-106) Calcium Level 10.4 mg/dL (8.7-10.4) Iron Level 216 ug/dL (50-170) Total Iron Binding Capacity 334 ug/dL (250-425) Percent Iron Saturation 64.7 % (15-50) Ferritin > 3300.0 ng/mL (10-291) Vitamin B12 Level 694 pg/mL (211-911) Folic Acid 7.69 ng/mL (>5.38) Test 05/26/24 15:28 05/26/24 15:09 Urine Color Light-orange (Yellow) Urine Clarity Turbid (Clear) Urine pH 6.5 (5.0-9.0) Urine Specific [place] 1.017 (1.001-1.035) Urine Protein 2+ (Negative) Urine Ketones Negative (Negative) Urine Blood Trace /uL (Negative) Urine Nitrite Negative (Negative) Urine Bilirubin Negative (Negative) Urine Urobilinogen Normal mg/dL (Negative) Urine Leukocyte Esterase Negative /uL (Negative) Urine RBC 1 /hpf (0 - 4) Urine WBC 2 /hpf (0 - 5) Urine Squamous Epithelial Cells Few /hpf (<5) Urine Amorphous Crystals Few /hpf (None Seen) Urine Bacteria Few /hpf (None Seen) Urine Mucus Few (None Seen) Urine Glucose Normal mg/dL (Normal) Reticulocyte Count (auto) 0.06 % (0.5-1.5) Lactic Acid Level 1.1 mmol/L (0.4-2.0) Total Bilirubin 0.4 mg/dL (0.2-1.0) Aspartate Amino Transferase (AST) 46 U/L (13-40) Alanine Aminotransferase (ALT) 122 U/L (7-40) Alkaline Phosphatase 175 U/L (46-116) Ammonia 15 umol/L (11-32) Lactate Dehydrogenase 184 U/L (120-246) Total Protein 7.1 g/dL (5.7-8.2) Albumin 3.8 g/dL (3.2-4.8) Other Laboratory Tests 05/27/24 13:40 05/27/24 08:28 Brief Hx & Hospital Course: 79-year-old female with a history of hypertension diabetes chronic anemia dementia multiple myeloma with a history of multiple blood transfusions in the past came in for generalized weakness and altered mental status. Patient had severe anemia hemoglobin 6.0 improved to 8.4 after 2 units of RBC transfusion. Admitted for possible stroke which has been ruled out. Seen by tele neurologist in the emergency room. CT head negative MRI brain negative seen by [facility] Dr. Hall. Patient is responsive no abuse signs of any new stroke. Being discharged home she will follow up with her primary Dr and with neurologist Dr. Hall in two weeks Discussed the discharge plan with the son Elijah on the phone and he agrees Consults/Reason for consult Neurology Dr. Hall Tele neurology Operations or Procedures RBC transfusion CT head MRI brain Condition at Discharge: Poor Final Diagnosis/Problems List Acute severe symptomatic anemia hemoglobin 6.0, improved to 8.4 after 2 units RBC transfusion History of multiple myeloma History of multiple blood transfusions in the past Hypertension Diabetes Chronic anemia Moderate dementia Possible stroke with a right facial droop on the slurry speech: CT head negative, MRI brain negative,Tele Neurology consult by Dr. Ward appreciated, not a candidate for aspirin because of recent anemia, Neurology consult by Dr. Hall appreciated Discharge Disposition: Home Discharge Instruct/Medications Diet: Cardiac 2g Na,low cholest Activity: Light activity Follow Up/Referral: Resume all previous home medications Follow up with your primary Dr in one week Follow up with the Neurology Dr. Hall in one week Return to ER if symptoms worsen 35 (Time Taken for discharge summary 35 minutes) Discharge Statement: "Patient was advised to return to the ER or call 911 if any headaches, dizziness, shortness of breath, chest pain, abdominal pain, bleeding, fevers, or worsening of medical condition. Patient was counseled about treatment plan, medications, possible side effects, patientverbalized understanding. All questions were answered to the best of my ability. This discharge took greater then 30 minutes in planning, reviewing documentation, counseling the patient, and discussing with other team members." ASSESSMENT ASSESSMENT Hospital Course Improved Assessment Acute severe symptomatic anemia hemoglobin 6.0, improved to 8.4 after 2 units RBC transfusion History of multiple myeloma History of multiple blood transfusions in the past Hypertension Diabetes Chronic anemia Moderate dementia Possible stroke with a right facial droop on the slurry speech: CT head negative, MRI brain negative,Tele Neurology consult by Dr. Ward appreciated, not a candidate for aspirin because of recent anemia, Neurology consult by Dr. Hall appreciated Date of Service: May 28, 2024 Billing Provider: ANAIS MILLER MD Common Visit Codes: [id number]-WEN/OBS DISCH DAY >30min ANAIS MILLER MD May 28, 2024 11:38
[2024-05-28 15:09] LABS: Base Excess -2.3 mmol/L (-2.0-3.0)
--- NOTE | 2024-05-28 21:39 | DVHPN2 ---
Progress Note - Dictate Date Seen: May 28, 2024 Medical Necessity Reason Pt with a Central, PICC or Fol: Yes Subjective Ms. Sutton is a 69 years old right-handed female with a history of hypertension, diabetes, dyslipidemia, hypothyroidism, anemia, multiple myeloma, she was admitted on 05/26/2024 with a chief company of [employer] I saw her on 12/30/23 for carotid stenosis and syncope, at that time, I noticed intermittent mild left facial spasms and I suspect intermittent left hemifacial spasms I have seen and examined the patient, I have discussed with her nurse, and other medical staff, the patient was looks stronger today, she was oriented to person, place, but overall still confused, and physically very weak, her voice is low, and she can only move her arms and the legs minimally Again I do not confirm right facial drooping, but I see intermittent twitching in the left mouth corner Urinalysis, 05/26/2024: WBC: 1, urine leukocyte esterase: 1 WBC/HB/PLT/MCV, 12/30/2023: 9/7.3/110/85.7, 05/27/24: 9.4/7.5/74/81.5 TBI/AST/ALT/AP, 12/30/2023: 0.2/41/106/146, 05/26/2024: 0.4/46/122/175 Vitamin B12, 12/30/2023: 489, 05/26/2024: 694 Folic acid, 05/26/2020 4:7.69 TSH, 12/29/2023: 13.2 FT4, 12/30/2023: 0.56 Carotid Doppler, 12/30/2023: 1. 50-69% stenosis of the level of the left proximal ICA. 2. No hemodynamically significant stenosis noted in the right carotid system CXR, 05/26/2024: No acute disease. CT head, 05/27/2024: No evidence of acute intracranial hemorrhage, mass effect, hydrocephalus or skull fracture. If there is high clinical concern for acute infarct consider MRI for further evaluation MRI head, 05/27/2024: Evaluation severely limited by patient motion artifact. DWI imaging demonstrates no evidence for acute ischemia. No evidence for intracranial hemorrhage, mass effect, or hydrocephalus CT head, 12/30/2023: No evidence of acute intracranial abnormality vital signs Vital Sign Date Time Temp Pulse Resp B/P (MAP) Pulse Ox O2 Delivery O2 Flow Rate FiO2 05/28/24 17:00 98.5 76 16 150/77 (101) 100 98.5 05/28/24 08:30 Nasal Cannula* 4 36 Total Intake and Output 05/27/24 05/27/24 05/28/24 15:00 23:00 07:00 Intake Total 60 ml 250 ml Output Total 950 ml 120 ml 175 ml Balance -950 ml -60 ml 75 ml medications Current Medications Medications Dose Ordered Sig/Mandi Route Start Time Stop Time Status Last Admin Dose Admin Diagnostic Test (Pha) 1 strip IQ4HR 05/26/24 20:00 05/28/24 20:00 1 STRIP Insulin Human Regular IQ4HR SC 05/26/24 20:00 05/27/24 20:26 3 UNITS Dextrose 50 ml UD PRN IV 05/26/24 19:00 Sodium Chloride 1,000 ml @ 100 mls/hr Q10H IV 05/26/24 19:00 05/27/24 16:07 100 MLS/HR Lorazepam 0.5 mg Q6HP PRN PO 05/26/24 19:00 Al Hydrox/Mg Hydrox/Simethicone 30 ml Q6HP PRN PO 05/26/24 19:00 Docusate Sodium 100 mg BIDPRN PRN PO 05/26/24 19:00 Acetaminophen 650 mg Q6HP PRN PO 05/26/24 19:00 Temazepam 15 mg QHSP PRN PO 05/26/24 19:00 Acetaminophen/ Hydrocodone Bitart 1 tab Q4HP PRN PO 05/26/24 19:00 Ondansetron HCl 4 mg Q4HP PRN IV 05/26/24 19:00 Morphine Sulfate 2 mg Q4HPRN PRN IV 05/26/24 19:00 Hydralazine HCl 10 mg Q6HP PRN IV 05/27/24 00:15 05/27/24 00:43 10 MG Ceftriaxone Sodium 50 ml @ 100 mls/hr DAILY@0100 IV 05/27/24 01:00 05/28/24 02:13 100 MLS/HR Guaifenesin/ Dextromethorphan 10 ml Q6HP PRN PO 05/27/24 19:15 05/27/24 20:26 10 ML objective General: the patient is well developed and nourished. No acute distress, but she looks weak. MENTAL STATUS: Subjective SPEECH, LANGUAGE, HIGHER CORTICAL FUNCTION: no aphasia or dysathria. But she only speaks a few words with weak voice CRANIAL NERVES: Pupils are equal, round and reactive. EOMs full and conjugate. No nystagmus. Facial sensation intact in all three divisions bilaterally. Mandibular strength intact. Facial muscles symmetrical and strength intact. Intermittent mild muscle spasm involving the whole left face SENSATION: Sensation to touch and pinprick is fine MOTOR: Normal tone in the upper and lower extremity. Normal muscle bulk. No fasciculations. No abnormal movements or posturing. She can only moves the arms and the legs slightly REFLEXES: Deep tendon reflexes normal and symmetrical. No pathological reflexes. CEREBELLAR/COORDINATION: Deferred GAIT/STATION: deferred. laboratory and microbiology Laboratory Tests 05/27/24 13:40 05/27/24 08:28 Test 05/27/24 08:28 Range/Units Serum Glucose 121 H 74-106 mg/dL Problem List Passing out event Presyncopal event, multifactorial, multiple myeloma, anemia, general weakness are among the contributing factors Rule out seizure Rule out stroke or other central nervous system disorder Left facial muscle twitching Left hemifacial spasm Rule out partial seizure Multiple myeloma Anemia Kidney failure Carotid stenosis, which may not cause the syncopal events Assessment/Plan Monitoring Supportive treatment Telemetry EEG Follow-up MRI brain scan Consider Up to chair when she is stronger Consider Physical therapy when she was strongly Hold off discharge for now This medical document was created using an electronic medical record system with [employer] dictation system. Although this document has been carefully reviewed, there may still be some phonetic and typographical errors. These areas are purely typographical due to imperfections of the software programs, and do not reflect any compromise in the patient's medical care. Prognosis poor Plan discussed with: Other Total Time (mins): 35 CC Plasma Assessment Blood Product Administration S: [id number] SUSANA OLIVER MD May 28, 2024 21:39
[2024-05-28] MEDS ORDERED: LORazepam 2MG/ML-1ML VIAL IV ONE (21:45)
[2024-05-29 01:00] VITALS: BP 158/86; PULSE 84; RESP 16; TEMP 98; O2SAT 99
[2024-05-29 05:00] VITALS: BP 163/76; PULSE 85; RESP 16; TEMP 99; O2SAT 100
[2024-05-29 07:30] VITALS: PULSE 91
[2024-05-29 08:00] VITALS: PULSE 85; RESP 16; O2SAT 99
[2024-05-29 09:00] VITALS: BP 147/85; PULSE 81; RESP 15; TEMP 98.4; O2SAT 99
--- NOTE | 2024-05-29 11:04 | DVHPN2 ---
Reviewed: Care Plan, H&P, Labs, Medications, Previous Orders, Radiology Changes from previous H/P or p: No Changes Eyes: No Pain, No Vision change, No Conjunctivae inflammation, No Eyelid inflammation, No Other, No Redness ENT: No Ear pain, No Ear discharge, No Nose pain, No Nose discharge, No Nose congestion, No Mouth pain, No Mouth swelling, No Throat pain, No Throat swelling, No Other Cardiovascular: No Chest Pain, No Palpitations, No Orthopnea, No Paroxysmal Noc. Dyspnea, No Edema, No Lt Headedness, No Other Respiratory: No Cough, No Dry, No Shortness of breath, No SOB with excertion, No Wheezing, No Hemoptysis, No Pleuritic Pain, No Sputum, No Other Gastrointestinal: No Nausea, No Vomiting, No Abdominal Pain, No Diarrhea, No Constipation, No Melena, No Hematochezia, No Other Genitourinary: No Dysuria, No Frequency, No Incontinence, No Hematuria, No Retention, No Other Musculoskeletal: No other, No neck pain, No shoulder pain, No arm pain, No back pain, No hand pain, No leg pain, No foot pain Skin: No Rash, No Lesions, No Jaundice, No Bruising, No Other Objective Vitals Vital Signs Date Time Temp Pulse Resp B/P (MAP) Pulse Ox O2 Delivery O2 Flow Rate FiO2 05/29/24 09:00 98.4 81 15 147/85 (105) 99 98.4 05/29/24 08:00 Nasal Cannula* 3 32 Intake/Output Intake and Output 05/29/24 07:00 Intake Total 1400 ml Output Total 1250 ml Balance 150 ml Intake Oral 650 ml IV Total 750 ml Output Urine Total 1250 ml Medications Current Medications Medications Dose Ordered Sig/Mandi Route Start Time Stop Time Status Last Admin Dose Admin Diagnostic Test (Pha) 1 strip IQ4HR 05/26/24 20:00 05/29/24 08:25 1 STRIP Insulin Human Regular IQ4HR SC 05/26/24 20:00 05/27/24 20:26 3 UNITS Dextrose 50 ml UD PRN IV 05/26/24 19:00 Sodium Chloride 1,000 ml @ 100 mls/hr Q10H IV 05/26/24 19:00 05/27/24 16:07 100 MLS/HR Lorazepam 0.5 mg Q6HP PRN PO 05/26/24 19:00 Al Hydrox/Mg Hydrox/Simethicone 30 ml Q6HP PRN PO 05/26/24 19:00 Docusate Sodium 100 mg BIDPRN PRN PO 05/26/24 19:00 Acetaminophen 650 mg Q6HP PRN PO 05/26/24 19:00 Temazepam 15 mg QHSP PRN PO 05/26/24 19:00 Acetaminophen/ Hydrocodone Bitart 1 tab Q4HP PRN PO 05/26/24 19:00 Ondansetron HCl 4 mg Q4HP PRN IV 05/26/24 19:00 Morphine Sulfate 2 mg Q4HPRN PRN IV 05/26/24 19:00 Hydralazine HCl 10 mg Q6HP PRN IV 05/27/24 00:15 05/29/24 05:40 10 MG Ceftriaxone Sodium 50 ml @ 100 mls/hr DAILY@0100 IV 05/27/24 01:00 05/29/24 00:48 100 MLS/HR Guaifenesin/ Dextromethorphan 10 ml Q6HP PRN PO 05/27/24 19:15 05/29/24 06:13 10 ML Laboratory Results Laboratory Tests 05/27/24 08:28 05/27/24 13:40 Urinalysis Test 05/26/24 15:28 Urine Color Light-orange (Yellow) Urine Clarity Turbid (Clear) H Urine pH 6.5 (5.0-9.0) Urine Specific Gary 1.017 (1.001-1.035) Urine Protein 2+ (Negative) H Urine Ketones Negative (Negative) Urine Blood Trace /uL (Negative) H Urine Nitrite Negative (Negative) Urine Bilirubin Negative (Negative) Urine Urobilinogen Normal mg/dL (Negative) Urine Leukocyte Esterase Negative /uL (Negative) Urine RBC 1 /hpf (0 - 4) Urine WBC 2 /hpf (0 - 5) Urine Squamous Epithelial Cells Few /hpf (<5) Urine Amorphous Crystals Few /hpf (None Seen) Urine Bacteria Few /hpf (None Seen) H Urine Mucus Few (None Seen) Urine Glucose Normal mg/dL (Normal) Blood Gas Results Test 05/28/24 15:00 Arterial Blood pH 7.419 (7.350-7.450) FiO2 % 21.0 Microbiology Microbiology Date/Time Source Procedure Growth Status 05/26/24 15:09 Blood Blood Culture - Preliminary NO GROWTH AFTER 48 HOURS OF INCUBATION. Resulted Labs and/or images reviewed: Labs reviewed by me, Image(s) reviewed by me Assessment/Plan Assessment/Plan Acute severe symptomatic anemia hemoglobin 6.0, improved to 8.4 after 2 units RBC transfusion History of multiple myeloma History of multiple blood transfusions in the past Hypertension Diabetes Chronic anemia Moderate dementia Possible stroke with a right facial droop on the slurry speech: CT head negative, MRI brain negative,Tele Neurology consult by Dr. Ward appreciated, not a candidate for aspirin because of recent anemia, Neurology consult by Dr. Hall appreciated Spoke with son Elijah on the phone and he agreed with the discharge plan Discharged home yesterday, O2 sats were low, patient qualified for home oxygen. Oxygen at the bedside now, discharged. Plan discussed with: Patient My Orders Orders - ANAIS MILLER MD Procedure Category Date Status Time Discharge DISCHARGE 05/28/24 Transmitted 11:34 Abg W/ Co-Ox RT 05/28/24 Logged 14:59 * Manager Of Loss Prevention Operations CONS 05/28/24 Transmitted Consult Date of Service: May 29, 2024 Billing Provider: ANAIS MILLER MD Common Visit Codes: [id number] INP/OBS CARE(HIGH) ANAIS MILLER MD May 29, 2024 11:04
--- NOTE | 2024-05-29 11:14 | DVHPN2 ---
Progress Note - Dictate Date Seen: May 29, 2024 Medical Necessity Reason Pt with a Central, PICC or Fol: Yes Subjective Ms. Sutton is a 69 years old right-handed female with a history of hypertension, diabetes, dyslipidemia, hypothyroidism, anemia, multiple myeloma, she was admitted on 05/26/2024 with a chief company of [employer] I saw her on 12/30/23 for carotid stenosis and syncope, at that time, I noticed intermittent mild left facial spasms and I suspect intermittent left hemifacial spasms I have seen and examined the patient along with her nurse, I have discussed the case with Pillo. She was much better today, sitting at the bed, speaking with strong voice, she was oriented to person place, good social skills, no acute distress Urinalysis, 05/26/2024: WBC: 1, urine leukocyte esterase: 1 WBC/HB/PLT/MCV, 12/30/2023: 9/7.3/110/85.7, 05/27/24: 9.4/7.5/74/81.5 TBI/AST/ALT/AP, 12/30/2023: 0.2/41/106/146, 05/26/2024: 0.4/46/122/175 Vitamin B12, 12/30/2023: 489, 05/26/2024: 694 Folic acid, 05/26/2020 4:7.69 TSH, 12/29/2023: 13.2 FT4, 12/30/2023: 0.56 Carotid Doppler, 12/30/2023: 1. 50-69% stenosis of the level of the left proximal ICA. 2. No hemodynamically significant stenosis noted in the right carotid system CXR, 05/26/2024: No acute disease. CT head, 05/27/2024: No evidence of acute intracranial hemorrhage, mass effect, hydrocephalus or skull fracture. If there is high clinical concern for acute infarct consider MRI for further evaluation MRI head, 05/27/2024: Evaluation severely limited by patient motion artifact. DWI imaging demonstrates no evidence for acute ischemia. No evidence for intracranial hemorrhage, mass effect, or hydrocephalus CT head, 12/30/2023: No evidence of acute intracranial abnormality vital signs Vital Sign Date Time Temp Pulse Resp B/P (MAP) Pulse Ox O2 Delivery O2 Flow Rate FiO2 05/29/24 09:00 98.4 81 15 147/85 (105) 99 98.4 05/29/24 08:00 Nasal Cannula* 3 32 Total Intake and Output 05/28/24 05/28/24 05/29/24 15:00 23:00 07:00 Intake Total 700 ml 400 ml 300 ml Output Total 350 ml 900 ml Balance 700 ml 50 ml -600 ml medications Current Medications Medications Dose Ordered Sig/Mandi Route Start Time Stop Time Status Last Admin Dose Admin Diagnostic Test (Pha) 1 strip IQ4HR 05/26/24 20:00 05/29/24 08:25 1 STRIP Insulin Human Regular IQ4HR SC 05/26/24 20:00 05/27/24 20:26 3 UNITS Dextrose 50 ml UD PRN IV 05/26/24 19:00 Sodium Chloride 1,000 ml @ 100 mls/hr Q10H IV 05/26/24 19:00 05/27/24 16:07 100 MLS/HR Lorazepam 0.5 mg Q6HP PRN PO 05/26/24 19:00 Al Hydrox/Mg Hydrox/Simethicone 30 ml Q6HP PRN PO 05/26/24 19:00 Docusate Sodium 100 mg BIDPRN PRN PO 05/26/24 19:00 Acetaminophen 650 mg Q6HP PRN PO 05/26/24 19:00 Temazepam 15 mg QHSP PRN PO 05/26/24 19:00 Acetaminophen/ Hydrocodone Bitart 1 tab Q4HP PRN PO 05/26/24 19:00 Ondansetron HCl 4 mg Q4HP PRN IV 05/26/24 19:00 Morphine Sulfate 2 mg Q4HPRN PRN IV 05/26/24 19:00 Hydralazine HCl 10 mg Q6HP PRN IV 05/27/24 00:15 05/29/24 05:40 10 MG Ceftriaxone Sodium 50 ml @ 100 mls/hr DAILY@0100 IV 05/27/24 01:00 05/29/24 00:48 100 MLS/HR Guaifenesin/ Dextromethorphan 10 ml Q6HP PRN PO 05/27/24 19:15 05/29/24 06:13 10 ML objective General: the patient is well developed and nourished. No acute distress, but she looks weak. MENTAL STATUS: Subjective SPEECH, LANGUAGE, HIGHER CORTICAL FUNCTION: no aphasia or dysathria. But she only speaks a few words with weak voice CRANIAL NERVES: Pupils are equal, round and reactive. EOMs full and conjugate. No nystagmus. Facial sensation intact in all three divisions bilaterally. Mandibular strength intact. Facial muscles symmetrical and strength intact. Intermittent mild muscle spasm involving the whole left face SENSATION: Sensation to touch and pinprick is fine MOTOR: Normal tone in the upper and lower extremity. Normal muscle bulk. No fasciculations. No abnormal movements or posturing. She moves the arms and legs REFLEXES: Deep tendon reflexes normal and symmetrical. No pathological reflexes. CEREBELLAR/COORDINATION: Deferred GAIT/STATION: deferred. laboratory and microbiology Laboratory Tests 05/27/24 13:40 05/27/24 08:28 Test 05/27/24 08:28 Range/Units Serum Glucose 121 H 74-106 mg/dL Problem List Passing out event Presyncopal event, multifactorial, multiple myeloma, anemia, general weakness are among the contributing factors Rule out seizure Rule out stroke or other central nervous system disorder Left facial muscle twitching Left hemifacial spasm Rule out partial seizure Multiple myeloma Anemia Kidney failure Assessment/Plan Monitoring Supportive treatment Telemetry Up to chair physical therapy Okay to discharge from a neurologic point of view This medical document was created using an electronic medical record system with [employer] dictation system. Although this document has been carefully reviewed, there may still be some phonetic and typographical errors. These areas are purely typographical due to imperfections of the software programs, and do not reflect any compromise in the patient's medical care. Prognosis poor Plan discussed with: Other CC Plasma Assessment Blood Product Administration S: [id number] SUSANA OLIVER MD May 29, 2024 11:14
== END 2024-05-29 18:10 | disposition home or self-care (01) | DRG 811 ==
LOC: EDBD 13:57 → ER 13:57 → OVERFLOW 18:51 → WEST WING 19:14 → TELE-WESTW 05-28 15:36
PROVIDERS: ADMIT Hospitalist; ATTEND Family Medicine
PROC: 30233N1 Transfusion of Nonautologous Red Blood Cells into Peripheral Vein, Percutaneous Approach (ICD-10-PCS; principal; 2024-05-26)
DX: D64.9 Anemia, unspecified (principal); G93.41 Metabolic encephalopathy; I10 Essential (primary) hypertension; G51.32 Clonic hemifacial spasm, left; N19 Unspecified kidney failure; E11.9 Type 2 diabetes mellitus without complications; K21.9 Gastro-esophageal reflux disease without esophagitis; E78.5 Hyperlipidemia, unspecified; F17.200 Nicotine dependence, unspecified, uncomplicated; F03.B0 Unspecified dementia, moderate, without behavioral disturbance, psychotic disturbance, mood disturbance, and anxiety; E03.9 Hypothyroidism, unspecified; Z90.710 Acquired absence of both cervix and uterus; Z90.49 Acquired absence of other specified parts of digestive tract; Z80.3 Family history of malignant neoplasm of breast; Z82.49 Family history of ischemic heart disease and other diseases of the circulatory system; Z82.3 Family history of stroke; Z85.79 Personal history of other malignant neoplasms of lymphoid, hematopoietic and related tissues
CPT/HCPCS: 36415; 36600; 70450; 70551; 71045; 80048; 80053; 81001; 82140; 82607; 82728; 82746; 82805; 82962; 83540; 83550; 83605; 83615; 85025; 85045; 86850; 86900; 86901; 86920; 87040; 93005; 99291; G0378; J1815

== ENCOUNTER 2024-06-04 17:55 | Inpatient (IN) | payer OTHER, MEDICAID ==
[~2024-06-04] VITALS: Ht 170.2 cm; Wt 52.2 kg
[2024-06-04] MEDS: SODIUM CHLORIDE 0.9% 500 ML IVB ONE (18:15)
--- NOTE | 2024-06-04 18:18 | ED.PDOC ---
History of Present Illness HPI Comments 69-year-old female who came to ER via EMS for syncope. Per EMS, patient was being seen at her doctor's office, when she had a witnessed syncopal attack. No head trauma noted. Patient upon waking up, noted to be slightly confused and disoriented. Blood sugar on scene was 122. Blood pressure was 122/56 mm Hg Chief Complaint: Syncope Time Seen by MD: 18:17 Primary Care Provider: unknown Reviewed Notes: Nurses Notes Allergies: Coded Allergies: NO KNOWN ALLERGIES (Unverified , 12/07/22) Home Meds Reported Medications Pantoprazole Sodium Sesquihydr (Pantoprazole Sodium) 40 Mg Tab, 40 MG PO DAILY for GERD, TAB 05/03/24 Rosuvastatin Calcium (Crestor) 20 Mg Tab, 1 TAB PO DAILY, #30 TAB 5 Refills 05/03/24 Lisinopril (Lisinopril) 10 Mg Tab, 10 MG PO DAILY for HTN for 30 Days, MG 05/03/24 Deferasirox (Jadenu) 360 Mg Tab, 360 MG PO DAILY for high iron, TAB 05/03/24 Glucose Blood (Freestyle Lite Test Strip) Lite Umu, XX BID for diabetes mellitus 12/30/23 Levothyroxine Sodium (Levothyroxine Sodium) 25 Mcg Tab, 1 TAB PO DAILY 06/14/23 Amlodipine Besylate (Amlodipine Besylate) 10 Mg Tab, 1 TAB PO DAILY 02/15/23 Potassium Chloride (Potassium Chloride ER) 20 Meq Tab, 1 TAB PO DAILY 02/15/23 Information Source: Emergency Med Personnel Mode of Arrival: EMS Severity: Moderate Timing: Minutes Duration: Since onset Prehospital treatment: Accucheck, IVF Past Medical History PAST MEDICAL HISTORY: Anemia, Cancer, DM, GERD, High Lipids, HTN, Thyroid Surgical History: Appendectomy, Hysterectomy YARDAGE CALLER History: No Pertinent YARDAGE CALLER History, Uterine Fibroids Family History Family History: Reviewed,noncontributory to illness Social History Smoker: Non-Smoker Alcohol: Denies ETOH Use Drugs: Denies Drug Use Lives In: Home, Intermediate Unable to Obtain due to: Altered Mental Status, Other (Confused and disoriented) Physical Exam General Appearance: No Apparent Distress, Normal HEENT: Normal ENT Inspection, Pharynx Normal, TMs Normal Neck: Full Range of Motion, Non-Tender, Normal, Normal Inspection Respiratory: Chest Non-Tender, Lungs Clear, No Accessory Muscle Use, No Respiratory Distress, Normal Breath Sounds Cardiovascular: No Edema, No JVD, No Murmur, No Gallop, Normal Peripheral Pulses, Regular Rate/Rhythm Breast Exam: Deferred Gastrointestinal: No Organomegaly, Non Tender, No Pulsatile Mass, Normal Bowel Sounds, Soft Genitalia: Deferred Pelvic: Deferred Rectal: Deferred Extremities: No calf tenderness, Normal capillary refill, Normal inspection, Normal range of motion, Non-tender, No pedal edema Musculoskeletal : Apperance: Normal Neurologic: Alert, training and development manager II-XII nml as Tested, No Motor Deficits, Normal Affect, Normal Mood, No Sensory Deficits Cerebellar Function: Normal Reflexes: Normal Skin: Dry, Normal Color, Warm Lymphatic: No Adenopathy Was a procedure done? Was a procedure done?: No Differential Dx Considerations may include: Anemia, electrolyte imbalance, dehydration, syncope, CVA, hypotension X-Ray, Labs, Meds, VS Vital Signs Date Time Temp Pulse Resp B/P (MAP) Pulse Ox O2 Delivery O2 Flow Rate FiO2 06/04/24 19:40 97.6 78 12 123/57 (79) 95 97.6 06/04/24 19:13 70 06/04/24 19:11 71 18 97 Room Air* 0 21 06/04/24 19:08 98.0 72 20 123/57 (79) 98 98.0 06/04/24 18:03 77 06/04/24 17:56 98.2 72 18 123/56 (78) 100 Lab Test 06/04/24 19:25 06/04/24 18:30 Range/Units Troponin I High Sensitivity Pending 27 </=34 ng/L White Blood Count 14.8 H 4.4-10.8 10^3/uL Red Blood Count 3.42 L 4.0-5.20 10^6/uL Hemoglobin 9.3 L 12.2-16.2 g/dL Hematocrit 28.7 L 36.0-46.0 % Mean Corpuscular Volume 84.0 80.0-100.0 fL Mean Corpuscular Hemoglobin 27.3 L 28.0-32.0 pg Mean Corpuscular Hemoglobin Concent 32.5 32.0-36.0 g/dL Red Cell Distribution Width 15.7 H 11.8-14.3 % Platelet Count 147 140-450 10^3/uL Mean Platelet Volume 9.1 6.9-10.8 fL Neutrophils (%) (Auto) 82.8 H 37.0-80.0 % Lymphocytes (%) (Auto) 12.9 10.0-50.0 % Monocytes (%) (Auto) 3.4 0.0-12.0 % Eosinophils (%) (Auto) 0.7 0.0-7.0 % Basophils (%) (Auto) 0.2 0.0-2.0 % Neutrophils # (Auto) 12.3 H 1.6-8.6 10 ^3/uL Lymphocytes # (Auto) 1.9 0.4-5.4 10 ^3/uL Monocytes # (Auto) 0.5 0-1.3 10 ^3/uL Eosinophils # (Auto) 0.1 0-0.8 10 ^3/uL Basophils # (Auto) 0 0-0.2 10 ^3/uL Nucleated Red Blood Cells 0.0 % Sodium Level 137 136-145 mmol/L Potassium Level 3.5 3.5-5.1 mmol/L Chloride Level 104 98-107 mmol/L Carbon Dioxide Level 25 20-31 mmol/L Anion Gap 8 5-15 Blood Urea Nitrogen 27 H 9-23 mg/dL Creatinine 1.37 H 0.550-1.02 mg/dL Glomerular Filtration Rate Calc 41 >90 mL/min BUN/Creatinine Ratio 19.7 10.0-20.0 Serum Glucose 118 H 74-106 mg/dL Lactic Acid Level Pending Calcium Level 10.8 H 8.7-10.4 mg/dL Magnesium Level 1.8 1.6-2.6 mg/dL Total Bilirubin 0.2 0.2-1.0 mg/dL Aspartate Amino Transferase (AST) 95 H 13-40 U/L Alanine Aminotransferase (ALT) 186 H 7-40 U/L Alkaline Phosphatase 155 H 46-116 U/L Total Protein 7.3 5.7-8.2 g/dL Albumin 3.6 3.2-4.8 g/dL Current Medications Medications (Trade) Dose Ordered Sig/Mandi Route Start Time Stop Time Status Last Admin Sodium Chloride 500 ml @ 500 mls/hr Q1H ONCE IVB 06/04/24 18:15 06/04/24 19:14 DC 06/04/24 18:15 Time of 1ST Reevaluation: 18:15 Reevaluation 1ST: Unchanged Time of 2ND Reevaluation: 19:49 Reevaluation 2ND: Unchanged Patient Education/Counseling: Diagnosis, Treatment, Other (Patient confused and disoriented) Family Education/Counseling: No Family Present Departure 1 Departure Time of Disposition: 19:48 Impression: Primary Impression: Syncope and collapse Additional Impressions: Multiple myeloma Altered mental status Disposition: 09 ADMITTED INPATIENT Condition: Guarded Critical Care Note Critical Care Time?: Yes (35 min-critical care time only) Critical care comment: Total critical care time: Approximately 36 minutes Due to a high probability of clinically significant, life threatening deterioration, the patient required my highest level of preparedness to intervene emergently and I personally spent this critical care time directly and personally managing the patient. This critical care time included obtaining a history; examining the patient; pulse oximetry; ordering and review of studies; arranging urgent treatment with development of a management plan; evaluation of patient's response to treatment; frequent reassessment; and, discussions with other providers. This critical care time was performed to assess and manage the high probability of imminent, life-threatening deterioration that could result in multi-organ failure. It was exclusive of separately billable procedures and treating other patients. Stability Stability form required: No Heart Score Heart Score: Heart Score Response (Comments) Value History N/A 0 EKG N/A 0 Age N/A 0 Risk Factors N/A 0 Troponin N/A 0 Total 0 I personally scribed for HEATHER CHAKRABORTY MD ([email or web address]) on 06/04/24 at 18:18. Electronically submitted by Joseph Estrella ([email or web address]). HEATHER CHAKRABORTY MD Jun 04, 2024 18:18
--- NOTE | 2024-06-04 19:04 | ECG ---
[facility] Test Date: 2024-06-04 Test Time: 18:03:48 Pat Name: SHYANNE GARDNER Department: ED Room: 0250T Gender: F Host Hostess: STEVENSON : 1955 Requested By: HEATHER CHAKRABORTY Order Number: [id number] Reading MD: Alireza Castro Measurements Intervals [place] Rate: 77 P: 83 AL: 132 QRS: 61 QRSD: 80 T: 97 QT: 412 QTc: 467 Interpretive Statements Sinus rhythm Consider left ventricular hypertrophy Baseline wander in lead(s) II,aVR Electronically Signed On 06-08-2024 13:02:50 PST by Alireza Castro Please click the below link to view image of tracing.
[2024-06-04 19:11] VITALS: PULSE 71; RESP 18; O2SAT 97
[2024-06-04 19:13] LABS: Basophils # (auto) 0 10 ^3/uL (0-0.2); Basophils % (auto) 0.2 % (0.0-2.0); Eosinophils # (auto) 0.1 10 ^3/uL (0-0.8); Eosinophils % (auto) 0.7 % (0.0-7.0); Hematocrit 28.7 % (36.0-46.0); Hemoglobin 9.3 g/dL (12.2-16.2); Lymphocytes # (auto) 1.9 10 ^3/uL (0.4-5.4); Lymphocytes % (auto) 12.9 % (10.0-50.0); Mean Corpuscular Hemoglobin 27.3 pg (28.0-32.0); Mean Corpuscular Hgb Conc. 32.5 g/dL (32.0-36.0); Monocytes # (auto) 0.5 10 ^3/uL (0-1.3); Monocytes % (auto) 3.4 % (0.0-12.0); Neutrophils # (auto) 12.3 10 ^3/uL (1.6-8.6); Neutrophils % (auto) 82.8 % (37.0-80.0); Platelet Count (auto) 147 10^3/uL (140-450); Red Blood Cells 3.42 10^6/uL (4.0-5.20); Red Cell Distribution Width 15.7 % (11.8-14.3); White Blood Cell 14.8 10^3/uL (4.4-10.8)
--- NOTE | 2024-06-04 19:25 | DVH ---
Exam: CT HEAD WITHOUT CONTRAST History: [employer] Technique: [address] images through the posterior fossa and the supratentorial compart ment were acquired without contrast and imaged using soft tissue and bone algorithms. RADIATION DOSE: DLP 813.34 mGy.cm; CTDI vol 50.73 mGy. Comparison: MRI BRAIN HEAD WO CONTRAST on DOS: 05/27/24, CT STROKE CTH on DOS: 05/27/24, CT HEAD WITH OUT CONTRAST on DOS: 12/30/23 Findings: There is no evidence of an intracranial hemorrhage, acute large vessel infarct, mass effect, or midli ne shift. Marked calcification of the carotid siphons. The calvarium, orbits, paranasal sinuses, sella, middle ears, and mastoids are unremarkable. The superficial soft tissues are within normal limits. Impression: 1. No acute intracranial abnormality.
--- NOTE | 2024-06-04 19:25 | DVH ---
EXAM: XY CHEST PORTABLE TECHNIQUE: Single frontal chest radiograph CLINICAL HISTORY: syncope, weak COMPARISON: XY CHEST PORTABLE on DOS: 05/26/24, XY CHEST PORTABLE on DOS: 12/30/23, XY CHEST XRAY 1 EW on DOS: 06/13/23 Findings/Impression: Frontal chest radiograph demonstrates no acute osseous or superficial soft tissue abnormalities. Right chest wall port terminates near the superior cavoatrial junction. The trachea is midline. The cardiac silhouette and mediastinum are within normal limits. No pneumothorax, pleural effusions, or consolidations.
[2024-06-04 19:33] LABS: Albumin 3.6 g/dL (3.2-4.8); Chloride 104 mmol/L (98-107); Magnesium 1.8 mg/dL (1.6-2.6); Potassium 3.5 mmol/L (3.5-5.1); Sodium 137 mmol/L (136-145); Total Protein 7.3 g/dL (5.7-8.2)
[2024-06-04 19:36] LABS: Anion Gap 8 (5-15)
[2024-06-04 19:40] VITALS: PULSE 71; RESP 18; O2SAT 98
[2024-06-04 19:41] LABS: BUN/Creatinine Ratio 19.7 (10.0-20.0)
[2024-06-04 19:46] LABS: Alanine Aminotransferase 186 U/L (7-40); Alkaline Phosphatase 155 U/L (46-116); Aspartate Aminotransferase 95 U/L (13-40); Bilirubin, Total 0.2 mg/dL (0.2-1.0); Blood Urea Nitrogen 27 mg/dL (9-23); Calcium 10.8 mg/dL (8.7-10.4); Carbon Dioxide 25 mmol/L (20-31); Glucose 118 mg/dL (74-106)
[2024-06-04 19:58] LABS: Lactic Acid w/Reflex 2.9 mmol/L (0.4-2.0)
[2024-06-04] MEDS ORDERED: MORPHINE SULFATE INJ 2 MG/ml SYRG IV PRN (20:00)
[2024-06-04] MEDS ORDERED: ONDANSETRON HCL 4 MG/2 ML VIAL IV PRN (20:00)
[2024-06-04] MEDS ORDERED: NITROGLYCERIN 0.4 MG SL TAB SL PRN (20:00)
[2024-06-04] MEDS ORDERED: ACETAMINOPHEN 325 MG TAB PO PRN (20:00)
--- NOTE | 2024-06-04 20:54 | DVH ---
Carotid Duplex Date: 06/04/2024 08:15 PM Clinical History: syncope Comparison: US CAROTID DUPLX W COLOR DOP on DOS: 12/30/23 Technique: Duplex Doppler evaluation of the extracranial carotid and vertebral arteries including color Doppler and spectral/pulsed waveform analysis was performed. Findings: RIGHT SIDE: The peak systolic velocities are 129 cm/s in the distal CCA and 135 cm/s in the proximal ICA.The ICA/ CCA ratio is less than 2. The external carotid artery is patent with peak systolic velocity of 137 cm/s proximally. There is appropriate antegrade flow in the right vertebral artery. LEFT SIDE: The peak systolic velocities are 101 cm/s in the distal CCA and 91 cm/s in the proximal ICA.. The IC A/CCA ratio is less than 1. The external carotid artery is patent with peak systolic velocity of 111 cm/s proximally. There is appropriate antegrade flow in the left vertebral artery. IMPRESSION: There is 50-69% stenosis of the right proximal ICA. No hemodynamically significant stenosis noted in the left carotid system. Reference: Radiology 2003; 229:[id number]
[2024-06-04] MEDS: ATORVASTATIN 20 MG TAB PO SCH (22:20)
[2024-06-05] VITALS (8 sets, daily range): BP systolic 117–132; BP diastolic 55–74; PULSE 70–93; RESP 17–20; TEMP 98.2–98.8; O2SAT 92–100
--- NOTE | 2024-06-05 00:49 | DVHHP2 ---
History of Present Illness Reason for Visit: Syncope History of Present Illness 69-year-old female presents for evaluation of syncopal episode. Patient was at primary care provider's office when she had a syncopal episode while sitting in a her wheelchair. Patient's grandson reports the episode lasting approximately 1 minute. When patient woke up she was slightly lethargic. Currently she is alert oriented x3. Denies headache or blurred vision. Dizziness. Denies chest pain or palpitations. Past Medical History Diabetes mellitus, GERD, dyslipidemia, hypertension, thyroid and multiple myeloma Past Surgical History Hysterectomy and appendectomy Family History Noncontributory Smoke: No ALCOHOL: none Drugs: None Lives: with Family Review of Systems Review of Systems Review of systems are currently negative otherwise addressed in HPI. Allergies: Coded Allergies: NO KNOWN ALLERGIES (Unverified , 12/07/22) Medications Current Medications Medications Dose Ordered Sig/Mandi Route Start Time Stop Time Status Last Admin Dose Admin Nitroglycerin 0.4 mg Q5MINP PRN SL 06/04/24 20:00 Morphine Sulfate 2 mg Q30M PRN IV 06/04/24 20:00 Atorvastatin Calcium 20 mg HS PO 06/04/24 22:00 06/04/24 22:20 20 MG Levothyroxine Sodium 25 mcg QAM@0600 PO 06/05/24 06:00 Amlodipine Besylate 10 mg DAILY PO 06/05/24 10:00 Ondansetron HCl 4 mg Q4HP PRN IV 06/04/24 20:00 Enoxaparin Sodium 40 mg DAILY SC 06/05/24 10:00 Acetaminophen 650 mg Q6HP PRN PO 06/04/24 20:00 Exam Vital Signs Vital Signs Date Time Temp Pulse Resp B/P (MAP) Pulse Ox O2 Delivery O2 Flow Rate FiO2 06/04/24 23:00 92 15 108/53 (71) 96 06/04/24 19:40 Room Air* 0 21 06/04/24 19:40 97.6 97.6 Exam Gen: 69-year-old female in no apparent distress. Skin: Warm, dry, normal color and texture, no rash. HEENT: Normocephalic atraumatic, mucous membranes moist and pink. Neck: Cervical and supraclavicular nodes normal without enlargement, trachea is midline, thyroid gland is normal without masses. Pulmonary: Clear to auscultation and percussion bilaterally. Cardiac: Regular rate and rhythm. No murmur Abdomen: Soft, nontender, nondistended, bowel sounds present all 4 quadrants, no guarding, no rigidity, no organomegaly. Extremities: No cyanosis, clubbing, no edema Neuro: Cranial nerves II through XII grossly intact, normal affect and speech, no focal motor deficits. Labs/Xrays ORDERING PHYSICIAN: HEATHER CHAKRABORTY MD PROCEDURE(s): CXRP - CHEST PORTABLE REASON: syncope, weak ORDER NUMBER(s): [id number], ACCESSION NUMBER(s): [id number] EXAM: XY CHEST PORTABLE TECHNIQUE: Single frontal chest radiograph CLINICAL HISTORY: syncope, weak COMPARISON: XY CHEST PORTABLE on DOS: 05/26/24, XY CHEST PORTABLE on DOS: 12/30/23, XY CHEST XRAY 1 VIEW on DOS: 06/13/23 Findings/Impression: Frontal chest radiograph demonstrates no acute osseous or superficial soft tissue abnormalities. Right chest wall port terminates near the superior cavoatrial junction. The trachea is midline. The cardiac silhouette and mediastinum are within normal limits. No pneumothorax, pleural effusions, or consolidations. RING PHYSICIAN: HEATHER CHAKRABORTY MD PROCEDURE(s): HWOCT - HEAD WITHOUT CONTRAST REASON: ALOC ORDER NUMBER(s): [id number], ACCESSION NUMBER(s): [id number] Exam: CT HEAD WITHOUT CONTRAST History: [employer] Technique: [address] images through the posterior fossa and the supratentorial compartment were acquired without contrast and imaged using soft tissue and bone algorithms. RADIATION DOSE: DLP 813.34 mGy.cm; CTDI vol 50.73 mGy. Comparison: MRI BRAIN HEAD WO CONTRAST on DOS: 05/27/24, CT STROKE CTH on DOS: 05/27/24, CT HEAD WITHOUT CONTRAST on DOS: 12/30/23 Findings: There is no evidence of an intracranial hemorrhage, acute large vessel infarct, mass effect, or midline shift. Marked calcification of the carotid siphons. The calvarium, orbits, paranasal sinuses, sella, middle ears, and mastoids are unremarkable. The superficial soft tissues are within normal limits. Impression: 1. No acute intracranial abnormality. Labs Test 06/04/24 20:30 06/04/24 19:42 06/04/24 19:25 06/04/24 18:30 Range/Units Lactic Acid Level 1.2 0.4-2.0 mmol/L POC Glucose 132 H 70-106 mg/dl Troponin I High Sensitivity 26 </=34 ng/L White Blood Count 14.8 H 4.4-10.8 10^3/uL Red Blood Count 3.42 L 4.0-5.20 10^6/uL Hemoglobin 9.3 L 12.2-16.2 g/dL Hematocrit 28.7 L 36.0-46.0 % Mean Corpuscular Volume 84.0 80.0-100.0 fL Mean Corpuscular Hemoglobin 27.3 L 28.0-32.0 pg Mean Corpuscular Hemoglobin Concent 32.5 32.0-36.0 g/dL Red Cell Distribution Width 15.7 H 11.8-14.3 % Platelet Count 147 140-450 10^3/uL Mean Platelet Volume 9.1 6.9-10.8 fL Neutrophils (%) (Auto) 82.8 H 37.0-80.0 % Lymphocytes (%) (Auto) 12.9 10.0-50.0 % Monocytes (%) (Auto) 3.4 0.0-12.0 % Eosinophils (%) (Auto) 0.7 0.0-7.0 % Basophils (%) (Auto) 0.2 0.0-2.0 % Neutrophils # (Auto) 12.3 H 1.6-8.6 10 ^3/uL Lymphocytes # (Auto) 1.9 0.4-5.4 10 ^3/uL Monocytes # (Auto) 0.5 0-1.3 10 ^3/uL Eosinophils # (Auto) 0.1 0-0.8 10 ^3/uL Basophils # (Auto) 0 0-0.2 10 ^3/uL Nucleated Red Blood Cells 0.0 % Sodium Level 137 136-145 mmol/L Potassium Level 3.5 3.5-5.1 mmol/L Chloride Level 104 98-107 mmol/L Carbon Dioxide Level 25 20-31 mmol/L Anion Gap 8 5-15 Blood Urea Nitrogen 27 H 9-23 mg/dL Creatinine 1.37 H 0.550-1.02 mg/dL Glomerular Filtration Rate Calc 41 >90 mL/min BUN/Creatinine Ratio 19.7 10.0-20.0 Serum Glucose 118 H 74-106 mg/dL Calcium Level 10.8 H 8.7-10.4 mg/dL Magnesium Level 1.8 1.6-2.6 mg/dL Total Bilirubin 0.2 0.2-1.0 mg/dL Aspartate Amino Transferase (AST) 95 H 13-40 U/L Alanine Aminotransferase (ALT) 186 H 7-40 U/L Alkaline Phosphatase 155 H 46-116 U/L Total Protein 7.3 5.7-8.2 g/dL Albumin 3.6 3.2-4.8 g/dL Assessment/Plan Assessment/Plan Assessment Syncope Diabetes mellitus Hypertension Leukocytosis Acute kidney injury Transaminitis Plan Admit the patient to telemetry to the hospitalist Cardiology consultation Echocardiogram/carotid ultrasound pending Monitor LFTs UA pending Resume home medications Continue treatment per orders. Plan discussed with: Patient My Orders Orders - BAILEE RINCON Procedure Category Date Status Time Admit ADMIT 06/04/24 Transmitted 19:56 Nitroglycerin PHA 06/04/24 In Process Sublingual (Ntrostat 20:00 Morphine Sulfate PHA 06/04/24 In Process Injection 20:00 Stat Ekg For Chest RIDDHI 06/04/24 In Process Pain 19:56 Notify Md Of Changes RIDDHI 06/04/24 In Process From Base 19:56 Airline Pilot/First Officer For RIDDIH 06/04/24 In Process 24 Hours 19:56 Emergency Dysrhythmia RIDDHI 06/04/24 In Process Protocol 19:56 Rhythm Strips Once [facility] 06/04/24 In Process Every Shift 19:56 Oxygen By Nasal RT 06/04/24 Transmitted Cannula 19:56 Orthostatic Vital ORDERS 06/04/24 Transmitted Signs 20:00 Urinalysis LAB 06/04/24 Logged 20:00 Atorvastatin (Lipitor) PHA 06/04/24 In Process 22:00 Levothyroxine Tablet PHA 06/05/24 In Process (Synthroid Tablet) 06:00 Amlodipine Tablet PHA 06/05/24 In Process (Norvasc Tablet) 10:00 * Cardiology Consult CONS 06/04/24 Transmitted 20:00 Basic Metabolic Panel LAB 06/05/24 Logged 04:00 Ondansetron Hcl PHA 06/04/24 In Process (Zofran) 20:00 Enoxaparin Sodium PHA 06/05/24 In Process (Lovenox) 10:00 Cardiac DIET 06/05/24 Transmitted Diet-2gna,Lofat,Lochol Breakfast Echo 2d Mode Cardiac US 06/04/24 Logged DOP 20:00 Carotid Duplx W Color US 06/04/24 Resulted DOP 20:00 Condition: Fair RIDDHI 06/04/24 In Process 20:00 Acetaminophen Tablet PHA 06/04/24 In Process (Tylenol Tablet) 20:00 Bedrest With Bathroom RIDDHI 06/04/24 In Process Privileg 20:00 Date of Service: Jun 04, 2024 Billing Provider: BAILEE RINCON Common Visit Codes: [id number] INP/OBS CARE (HIGH) BAILEE RINCON Jun 05, 2024 00:49
[2024-06-05] MEDS: LEVOTHYROXINE SODIUM 25 MCG TAB PO SCH (05:52)
[2024-06-05 07:05] LABS: Anion Gap 6 (5-15); Calcium 10.4 mg/dL (8.7-10.4); Carbon Dioxide 26 mmol/L (20-31); Potassium 3.5 mmol/L (3.5-5.1); Sodium 139 mmol/L (136-145)
[2024-06-05 07:11] LABS: BUN/Creatinine Ratio 24.1 (10.0-20.0)
[2024-06-05 07:13] LABS: Blood Urea Nitrogen 28 mg/dL (9-23); Chloride 107 mmol/L (98-107); Glucose 106 mg/dL (74-106)
--- NOTE | 2024-06-05 09:59 | DVHINCON2 ---
Date Seen: Jun 05, 2024 Referring Physician SANNA Meza Reason for Consultation Syncope History of Present Illness This is a 69-year-old female patient who presents to the emergency room with chief complaint of ALOC and syncopal episode. At the time of assessment, the patient still remains confused and is only alert and oriented x2. Details of why patient came to the emergency room obtained from bedside RN and docu mentation. According to records, the patient was being seen at her doctor's office when she had a witnessed syncopal event. When the patient woke up, she was noted to be confused. EMS was called and the patient was brought to emergency room for further evaluation. Initial twelve lead electrocardiogram reveals normal sinus rhythm without any ST segment changes. Significant past medical history obtained from past medical records given that patient is confused at time of assessment. Significant past medical history includes hypertension, dyslipidemia, type 2 diabetes mellitus, hypothyroidism, anemia, and multiple myeloma. Past Medical History Past medical history reviewed. No other significant than mentioned above. Past Surgical History Denies Family History: FH: breast cancer G8 SISTER FH: cancer G8 MOTHER, , Cause: Heart attack FH: heart attack FH: stroke G8 MOTHER, , Cause: Heart attack G8 FATHER, , Cause: Stroke Hypercholesterolemia G8 MOTHER, , Cause: Heart attack G8 FATHER, , Cause: Stroke Hypertension G8 MOTHER, , Cause: Heart attack G8 FATHER, , Cause: Stroke Family History Family history reviewed. Social History Denies the use of tobacco, alcohol or illicit drugs. Allergies: Coded Allergies: NO KNOWN ALLERGIES (Unverified , 12/07/22) Home Meds Reported Medications Pantoprazole Sodium Sesquihydr (Pantoprazole Sodium) 40 Mg Tab, 40 MG PO DAILY for GERD, TAB 05/03/24 Rosuvastatin Calcium (Crestor) 20 Mg Tab, 1 TAB PO DAILY, #30 TAB 5 Refills 05/03/24 Lisinopril (Lisinopril) 10 Mg Tab, 10 MG PO DAILY for HTN for 30 Days, MG 05/03/24 Deferasirox (Jadenu) 360 Mg Tab, 360 MG PO DAILY for high iron, TAB 05/03/24 Glucose Blood (Freestyle Lite Test Strip) Lite Umu, XX BID for diabetes mellitus 12/30/23 Levothyroxine Sodium (Levothyroxine Sodium) 25 Mcg Tab, 1 TAB PO DAILY 06/14/23 Amlodipine Besylate (Amlodipine Besylate) 10 Mg Tab, 1 TAB PO DAILY 02/15/23 Potassium Chloride (Potassium Chloride ER) 20 Meq Tab, 1 TAB PO DAILY 02/15/23 Home Meds Home medications reviewed. Current Medications Current Medications Medications (Trade) Dose Ordered Sig/Mandi Route PRN Reason Start Time Stop Time Status Last Admin Nitroglycerin (Ntrostat Sublingual) 0.4 mg Q5MINP PRN SL FOR CHEST PAIN 06/04/24 20:00 Morphine Sulfate 2 mg Q30M PRN IV FOR CHEST PAIN 06/04/24 20:00 Atorvastatin Calcium (Lipitor) 20 mg HS PO 06/04/24 22:00 06/04/24 22:20 Levothyroxine Sodium (Synthroid Tablet) 25 mcg QAM@0600 PO 06/05/24 06:00 06/05/24 05:52 Amlodipine Besylate (Norvasc Tablet) 10 mg DAILY PO 06/05/24 10:00 Ondansetron HCl (Zofran) 4 mg Q4HP PRN IV NAUSEA / VOMITING 06/04/24 20:00 Enoxaparin Sodium (Lovenox) 40 mg DAILY SC 06/05/24 10:00 Acetaminophen (Tylenol Tablet) 650 mg Q6HP PRN PO PAIN SCALE 1-3 OR TEMP>100.4 06/04/24 20:00 Review of Systems Constitutional: No symptom reported Ears, Nose, & Throat: No symptom reported Eyes: No symptom reported Neurological: Syncope, ALOC Pulmonary/Respiratory: No symptoms reported Cardiovascular: No symptom reported Gastrointestinal: No symptom reported Genitourinary: No symptom reported Musculoskeletal: No symptom reported Skin: No symptom reported Psychiatric: No symptom reported Endocrine: No symptom reported Hematologic/Lymphatic: No symptom reported Vital Signs Vital Signs Date Time Temp Pulse Resp B/P (MAP) Pulse Ox O2 Delivery O2 Flow Rate FiO2 06/05/24 09:00 98.4 93 18 121/65 (83) 100 98.4 06/05/24 05:28 Room Air* 0 21 Physical Exam General Appearance: Cooperative. Well-developed. Well-nourished. No acute distress. Pulmonary/Respiratory: Clear, bilateral breaths sounds. Cardiovascular/Chest: Regular rate and rhythm. Peripheral Pulses: 2+ Radial (R). 2+ Radial (L). 2+ Pedal (R). 2+ Pedal (L) Abdominal Exam: Normal bowel sounds. Ankle Exam: Negative ankle edema Lower extremities: Negative lower extremity edema Neuro/Mental Status: A/OX2, confused Thoughts/Psych: deferred Appearance: No acute distress. Skin Exam: Normal inspection. Normal color. Warm and dry. Labs/Diagnostic Data Labs Test 06/05/24 06:25 06/04/24 20:30 06/04/24 19:42 06/04/24 19:25 Range/Units Sodium Level 139 136-145 mmol/L Potassium Level 3.5 3.5-5.1 mmol/L Chloride Level 107 98-107 mmol/L Carbon Dioxide Level 26 20-31 mmol/L Anion Gap 6 5-15 Blood Urea Nitrogen 28 H 9-23 mg/dL Creatinine 1.16 H 0.550-1.02 mg/dL Glomerular Filtration Rate Calc 50 >90 mL/min BUN/Creatinine Ratio 24.1 H 10.0-20.0 Serum Glucose 106 74-106 mg/dL Calcium Level 10.4 8.7-10.4 mg/dL Lactic Acid Level 1.2 0.4-2.0 mmol/L POC Glucose 132 H 70-106 mg/dl Troponin I High Sensitivity 26 </=34 ng/L Test 06/04/24 18:30 Range/Units White Blood Count 14.8 H 4.4-10.8 10^3/uL Red Blood Count 3.42 L 4.0-5.20 10^6/uL Hemoglobin 9.3 L 12.2-16.2 g/dL Hematocrit 28.7 L 36.0-46.0 % Mean Corpuscular Volume 84.0 80.0-100.0 fL Mean Corpuscular Hemoglobin 27.3 L 28.0-32.0 pg Mean Corpuscular Hemoglobin Concent 32.5 32.0-36.0 g/dL Red Cell Distribution Width 15.7 H 11.8-14.3 % Platelet Count 147 140-450 10^3/uL Mean Platelet Volume 9.1 6.9-10.8 fL Neutrophils (%) (Auto) 82.8 H 37.0-80.0 % Lymphocytes (%) (Auto) 12.9 10.0-50.0 % Monocytes (%) (Auto) 3.4 0.0-12.0 % Eosinophils (%) (Auto) 0.7 0.0-7.0 % Basophils (%) (Auto) 0.2 0.0-2.0 % Neutrophils # (Auto) 12.3 H 1.6-8.6 10 ^3/uL Lymphocytes # (Auto) 1.9 0.4-5.4 10 ^3/uL Monocytes # (Auto) 0.5 0-1.3 10 ^3/uL Eosinophils # (Auto) 0.1 0-0.8 10 ^3/uL Basophils # (Auto) 0 0-0.2 10 ^3/uL Nucleated Red Blood Cells 0.0 % Magnesium Level 1.8 1.6-2.6 mg/dL Total Bilirubin 0.2 0.2-1.0 mg/dL Aspartate Amino Transferase (AST) 95 H 13-40 U/L Alanine Aminotransferase (ALT) 186 H 7-40 U/L Alkaline Phosphatase 155 H 46-116 U/L Total Protein 7.3 5.7-8.2 g/dL Albumin 3.6 3.2-4.8 g/dL Assessment Syncope, rule out cardiac etiology Hypertension Dyslipidemia ?Sepsis Type 2 diabetes mellitus Acute kidney injury Thyroid disease Multiple myeloma Plan/Recommendation We will continue with the following plan/recommendations (Dr. Yee): * Echocardiogram to evaluate cardiac function * Bilateral carotid ultrasound * 50-69% stenosis of the right proximal ICA * No hemodynamically significant stenosis in the left carotid system * Orthostatic vital signs * Cardiac surveillance: Notify cardiology team of any ECG changes * Labs: TSH, UA The patient seen and examined at bedside with . Thank you for allowing us to care for this patient. Please call with any questions or concerns. Critical care time spent: 40 minutes This medical document was created using an electronic medical record system with voice recognition software and computerized dictation system. Although this document has been carefully reviewed, there might still be some phonetic and typographical errors. Occasional wrong-word or ``sound-alike substitutions may have occurred due to the inherent limitations of voice recognition software. These areas are purely typographical due to imperfections of the software programs and do not reflect any compromise in the patient's medical care. Please read the chart carefully and recognize, using context, where these substitutions have occurred. Plan discussed with: Patient, Other (Bedside RN) Date of Service: Jun 05, 2024 Billing Provider: AURELIANO SAEED Cardiology Common Codes: [id number] INP/OBS CARE (High) Cardiology Consultation Codes: [id number] CONSULT <45MIN AURELIANO SAEED Jun 05, 2024 09:59
[2024-06-05 11:48] LABS: Triglycerides 118 mg/dL (< 150)
[2024-06-05 11:49] LABS: LDL Cholesterol 86 mg/dL (< 100)
[2024-06-05 11:50] LABS: Cholesterol 152 mg/dL (< 200)
[2024-06-05] MEDS: ENOXAPARIN SOD 40 MG/0.4 ML SYRINGE SC SCH (11:52)
[2024-06-05] MEDS: amLODIPine BESYLATE 5 MG TAB PO SCH (11:52)
[2024-06-05 11:55] LABS: HDL Cholesterol 30 mg/dL (40-59)
[2024-06-05] MEDS: D5W/SOD CHL 0.45% 1,000 ML IV SCH (13:13)
--- NOTE | 2024-06-05 18:38 | DVHPN2 ---
Subjective I am assuming the care of the patient from today onwards. 69-year-old female with a known history of diabetes type 2 hypertension dyslipidemia, history of multiple myeloma initially presented to the hospital with a syncope episode. Patient is still remains confused. 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[employer] no motor deficit Medications Current Medications Medications Dose Ordered Sig/Mandi Route Start Time Stop Time Status Last Admin Dose Admin Nitroglycerin 0.4 mg Q5MINP PRN SL 06/04/24 20:00 Morphine Sulfate 2 mg Q30M PRN IV 06/04/24 20:00 Atorvastatin Calcium 20 mg HS PO 06/04/24 22:00 06/04/24 22:20 20 MG Levothyroxine Sodium 25 mcg QAM@0600 PO 06/05/24 06:00 06/05/24 05:52 25 MCG Amlodipine Besylate 10 mg DAILY PO 06/05/24 10:00 06/05/24 11:52 10 MG Ondansetron HCl 4 mg Q4HP PRN IV 06/04/24 20:00 Enoxaparin Sodium 40 mg DAILY SC 06/05/24 10:00 06/05/24 11:52 40 MG Acetaminophen 650 mg Q6HP PRN PO 06/04/24 20:00 Dextrose/Sodium Chloride 1,000 ml @ 50 mls/hr Q20H IV 06/05/24 12:15 06/05/24 13:13 50 MLS/HR Laboratory Results Laboratory Tests 06/04/24 18:30 06/05/24 06:25 Chemistry Test 06/05/24 06:25 Calcium Level 10.4 mg/dL (8.7-10.4) Lipid panel Test 06/05/24 06:25 Cholesterol Level 152 mg/dL (< 200) HDL Cholesterol 30 mg/dL (40-59) L Triglycerides Level 118 mg/dL (< 150) HgA1c, TSH Test 06/05/24 06:25 Hemoglobin A1c 6.5 % A1C (<5.7) H Thyroid Stimulating Hormone (TSH) 3.95 uIU/mL (0.55-4.78) Microbiology Microbiology Date/Time Source Procedure Growth Status 06/05/24 06:00 Nose MRSA Screen - Final Complete Assessment/Plan Assessment/Plan 69-year-old female is here for syncope episode 1. Syncope rule out cardiac pathology, suspect secondary to orthostatic hypotension 2. Orthostatic hypotension 3. Diabetes mellitus type 2 4. Hypertension 5. Dyslipidemia 6. History of multiple myeloma 7. Left carotid artery stenosis less than 70% -IV fluids, follow up 2D echo cardiology recommendations, check orthostatic vitals Q shift. -physical therapy evaluation and treatment. Plan discussed with: Other Date of Service: Jun 05, 2024 Billing Provider: HAYDE SIMMS MD Common Visit Codes: [id number] INP/OBS CARE(MOD) HAYDE SIMMS MD Jun 05, 2024 18:38
--- NOTE | 2024-06-05 19:54 | DVHINCON2 ---
Date Seen: Jun 05, 2024 Referring Physician SANNA Meza Reason for Consultation Syncope History of Present Illness This is a 69-year-old female with past medical history of hypertension, dyslipidemia, type 2 diabetes mellitus, hypothyroidism, anemia and multiple myeloma who presented to the ED due to ALOC and syncopal episode. At the time of assessment, the patient still remains confused and is only alert and oriented x2. Details of why patient came to the emergency room were obtained from bedside RN and documentation. According to records, the patient was being seen at her doctor's office when she had a witnessed syncopal event. When the patient woke up, she was noted to be confused. EMS was called and the patient was brought to emergency room for further evaluation. Initial twelve lead electrocar diogram reveals normal sinus rhythm without any ST segment changes. HGB 9.3, HCT 28.7, BUN 28, MIDWIFE PRACTITIONER 1.16. Chest x-ray shows NAD. CT head showed no acute intracranial abnormality. Patient was admitted to the hospital. I am asked to consult on this patient. Family History: FH: breast cancer G8 SISTER FH: cancer G8 MOTHER, , Cause: Heart attack FH: heart attack FH: stroke G8 MOTHER, , Cause: Heart attack G8 FATHER, , Cause: Stroke Hypercholesterolemia G8 MOTHER, , Cause: Heart attack G8 FATHER, , Cause: Stroke Hypertension G8 MOTHER, , Cause: Heart attack G8 FATHER, , Cause: Stroke Allergies: Coded Allergies: NO KNOWN ALLERGIES (Unverified , 12/07/22) Home Meds Reported Medications Pantoprazole Sodium Sesquihydr (Pantoprazole Sodium) 40 Mg Tab, 40 MG PO DAILY for GERD, TAB 05/03/24 Rosuvastatin Calcium (Crestor) 20 Mg Tab, 1 TAB PO DAILY, #30 TAB 5 Refills 05/03/24 Lisinopril (Lisinopril) 10 Mg Tab, 10 MG PO DAILY for HTN for 30 Days, MG 05/03/24 Deferasirox (Jadenu) 360 Mg Tab, 360 MG PO DAILY for high iron, TAB 05/03/24 Glucose Blood (Freestyle Lite Test Strip) Lite Umu, XX BID for diabetes mellitus 12/30/23 Levothyroxine Sodium (Levothyroxine Sodium) 25 Mcg Tab, 1 TAB PO DAILY 06/14/23 Amlodipine Besylate (Amlodipine Besylate) 10 Mg Tab, 1 TAB PO DAILY 02/15/23 Potassium Chloride (Potassium Chloride ER) 20 Meq Tab, 1 TAB PO DAILY 02/15/23 Current Medications Current Medications Medications (Trade) Dose Ordered Sig/Mandi Route PRN Reason Start Time Stop Time Status Last Admin Nitroglycerin (Ntrostat Sublingual) 0.4 mg Q5MINP PRN SL FOR CHEST PAIN 06/04/24 20:00 Morphine Sulfate 2 mg Q30M PRN IV FOR CHEST PAIN 06/04/24 20:00 Atorvastatin Calcium (Lipitor) 20 mg HS PO 06/04/24 22:00 06/04/24 22:20 Levothyroxine Sodium (Synthroid Tablet) 25 mcg QAM@0600 PO 06/05/24 06:00 06/05/24 05:52 Amlodipine Besylate (Norvasc Tablet) 10 mg DAILY PO 06/05/24 10:00 06/05/24 11:52 Ondansetron HCl (Zofran) 4 mg Q4HP PRN IV NAUSEA / VOMITING 06/04/24 20:00 Enoxaparin Sodium (Lovenox) 40 mg DAILY SC 06/05/24 10:00 06/05/24 11:52 Acetaminophen (Tylenol Tablet) 650 mg Q6HP PRN PO PAIN SCALE 1-3 OR TEMP>100.4 06/04/24 20:00 Dextrose/Sodium Chloride 1,000 ml @ 50 mls/hr Q20H IV 06/05/24 12:15 06/05/24 13:13 Review of Systems Constitutional: No symptom reported Ears, Nose, & Throat: No symptom reported Eyes: No symptom reported Neurological: Syncope, ALOC Pulmonary/Respiratory: No symptoms reported Cardiovascular: No symptom reported Gastrointestinal: No symptom reported Genitourinary: No symptom reported Musculoskeletal: No symptom reported Skin: No symptom reported Psychiatric: No symptom reported Endocrine: No symptom reported Hematologic/Lymphatic: No symptom reported Vital Signs Vital Signs Date Time Temp Pulse Resp B/P (MAP) Pulse Ox O2 Delivery O2 Flow Rate FiO2 06/05/24 16:37 98.6 81 20 130/70 (90) 95 98.6 06/05/24 08:30 Room Air* 0 21 Physical Exam GENERAL: Awake, alert, orientedx2, confused. LUNGS: Clear. CARDIOVASCULAR: Heart sounds are good. ABDOMEN: Soft. Labs/Diagnostic Data Labs Test 06/05/24 06:25 06/04/24 20:30 06/04/24 19:42 06/04/24 19:25 Range/Units Sodium Level 139 136-145 mmol/L Potassium Level 3.5 3.5-5.1 mmol/L Chloride Level 107 98-107 mmol/L Carbon Dioxide Level 26 20-31 mmol/L Anion Gap 6 5-15 Blood Urea Nitrogen 28 H 9-23 mg/dL Creatinine 1.16 H 0.550-1.02 mg/dL Glomerular Filtration Rate Calc 50 >90 mL/min BUN/Creatinine Ratio 24.1 H 10.0-20.0 Serum Glucose 106 74-106 mg/dL Hemoglobin A1c 6.5 H <5.7 % A1C Calcium Level 10.4 8.7-10.4 mg/dL Triglycerides Level 118 < 150 mg/dL Cholesterol Level 152 < 200 mg/dL LDL Cholesterol 86 < 100 mg/dL HDL Cholesterol 30 L 40-59 mg/dL Thyroid Stimulating Hormone (TSH) 3.95 0.55-4.78 uIU/mL Lactic Acid Level 1.2 0.4-2.0 mmol/L POC Glucose 132 H 70-106 mg/dl Troponin I High Sensitivity 26 </=34 ng/L Test 06/04/24 18:30 Range/Units White Blood Count 14.8 H 4.4-10.8 10^3/uL Red Blood Count 3.42 L 4.0-5.20 10^6/uL Hemoglobin 9.3 L 12.2-16.2 g/dL Hematocrit 28.7 L 36.0-46.0 % Mean Corpuscular Volume 84.0 80.0-100.0 fL Mean Corpuscular Hemoglobin 27.3 L 28.0-32.0 pg Mean Corpuscular Hemoglobin Concent 32.5 32.0-36.0 g/dL Red Cell Distribution Width 15.7 H 11.8-14.3 % Platelet Count 147 140-450 10^3/uL Mean Platelet Volume 9.1 6.9-10.8 fL Neutrophils (%) (Auto) 82.8 H 37.0-80.0 % Lymphocytes (%) (Auto) 12.9 10.0-50.0 % Monocytes (%) (Auto) 3.4 0.0-12.0 % Eosinophils (%) (Auto) 0.7 0.0-7.0 % Basophils (%) (Auto) 0.2 0.0-2.0 % Neutrophils # (Auto) 12.3 H 1.6-8.6 10 ^3/uL Lymphocytes # (Auto) 1.9 0.4-5.4 10 ^3/uL Monocytes # (Auto) 0.5 0-1.3 10 ^3/uL Eosinophils # (Auto) 0.1 0-0.8 10 ^3/uL Basophils # (Auto) 0 0-0.2 10 ^3/uL Nucleated Red Blood Cells 0.0 % Magnesium Level 1.8 1.6-2.6 mg/dL Total Bilirubin 0.2 0.2-1.0 mg/dL Aspartate Amino Transferase (AST) 95 H 13-40 U/L Alanine Aminotransferase (ALT) 186 H 7-40 U/L Alkaline Phosphatase 155 H 46-116 U/L Total Protein 7.3 5.7-8.2 g/dL Albumin 3.6 3.2-4.8 g/dL Microbiology Date/Time Source Procedure Growth Status 06/05/24 06:00 Nose MRSA Screen - Final Complete Assessment Syncope, rule out cardiac etiology. Hypertension. Dyslipidemia. ?Sepsis. Type 2 diabetes mellitus. Acute kidney injury. Thyroid disease. Multiple myeloma. Plan/Recommendation I agree with your ongoing assessment and care of plan. Patient has been seen by Savi Champion NP on my behalf, her and I discussed the plan with the patient. Echocardiogram to evaluate cardiac function. Bilateral carotid ultrasound. 50-69% stenosis of the right proximal ICA. No hemodynamically significant stenosis in the left carotid system. Orthostatic vital signs. Cardiac surveillance: Notify cardiology team of any ECG changes. Labs: TSH, UA. Additional plan as per the hospital course. A total of 45 minutes was spent reviewing the patient record, examining the patient, making a diagnostic and therapeutic plan, discussing this plan with medical personnel, following up on diagnostic studies and following the patient for clinical stability excluding any and all procedures. At least 50% of this time was spent in direct, [id number] contact. Plan discussed with: Patient Date of Service: Jun 05, 2024 Billing Provider: ANTONIO LOONEY MD Cardiology Common Codes: [id number] INP/OBS CARE (High) Cardiology Consultation Codes: [id number] CONSULT <45MIN ANTONIO LOONEY MD Jun 05, 2024 17:00
[2024-06-06] VITALS (8 sets, daily range): BP systolic 119–147; BP diastolic 54–89; PULSE 65–96; RESP 17–20; TEMP 98.2–98.7; O2SAT 93–100
[2024-06-06 04:50] LABS: Amphetamine Screen, Urine Neg (NEGATIVE); Barbiturate Scree,Urine Neg (NEGATIVE); Benzodiazephine Screen, Urine Neg (NEGATIVE); Cannabinoid Screen, Urine Neg (NEGATIVE); Cocaine Screen, Urine Neg (NEGATIVE); Opiate Scree,Urine Neg (NEGATIVE); Phencyclidine Screen, Urine Neg (NEGATIVE)
[2024-06-06 05:02] LABS: Urine Amorphous Crystal MOD /hpf (None Seen); Urine Bacteria MOD /hpf (None Seen); Urine Blood TRACE /uL (Negative); Urine Clarity Turbid (Clear); Urine Color Colorless (Yellow); Urine Mucus FEW (None Seen); Urine Protein, UAD Negative (Negative); Urine Specific Gravity 1.012 (1.001-1.035); Urine Urobilinogen Normal (Negative); Urine WBC 7 /hpf (0 - 5); Urine pH 5.5 (5.0-9.0)
--- NOTE | 2024-06-06 11:46 | DVHSR ---
APPROVED REPORT EXAM: LIMITED Two-dimensional and M-mode echocardiogram with Doppler and color Doppler. Blood Pressure: 121/72 mmHg INDICATION Syncope RISK FACTORS Height: 5'7, Weight: 113 DIMENSIONS LVDd3.4 (3.8-5.7cm)LA (2D)4.2 (1.9-4.0cm)Aortic Root3.3 (2.0-3.7cm) LVDs2.5 (2.5-4.0cm)LA (MM) (1.9-4.0cm)Aortic Cusp Exc1.3 (1.5-2.0cm) EF (%) 55.0 (55-70%)Rt. Atrium3.1 (1.9-4.0cm)Asc. Aorta cm IVSd1.2 (0.7-1.1cm)RV (D) (1.8-2.4cm) PWd1.2 (0.7-1.1cm) Mitral Valve MitralMitral Stenosis E wave0.54m/sMV Mean GR.mmHg A wave0.95m/sMV Peak GR.mmHg E/A ratio0.62D MVAcm2 DECEL [id number] 1/2 Timems Aortic Valve Aortic ValveAortic Stenosis V10.97m/Alfredo Mean GR.4mmHg V21.29m/Alfredo Peak GR.7mmHg LVOT Diameter1.9 (1.8-2.4cm)Doppler AVA2.13cm2 Other Information Quality : Technically LimitedRhythm : Technically limited study due to patient position.body habitus. Conclusion MODERATE LVH AND MILD LV DIASTOLIC DYSFUNCTION NORMAL LV EJECTION FRACTION OF 65% NORMAL VALVES NO EFFUSION NORMAL RV FUNCTION AND SIZE
--- NOTE | 2024-06-06 15:47 | DVHPN2 ---
Subjective 69-year-old female with a known history of diabetes type 2 hypertension dyslipidemia, history of multiple myeloma initially presented to the hospital with a syncope episode. Patient is still remains confused. 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 Medications Current Medications Medications Dose Ordered Sig/Mandi Route Start Time Stop Time Status Last Admin Dose Admin Nitroglycerin 0.4 mg Q5MINP PRN SL 06/04/24 20:00 Morphine Sulfate 2 mg Q30M PRN IV 06/04/24 20:00 Atorvastatin Calcium 20 mg HS PO 06/04/24 22:00 06/05/24 21:42 20 MG Levothyroxine Sodium 25 mcg QAM@0600 PO 06/05/24 06:00 06/06/24 05:38 25 MCG Amlodipine Besylate 10 mg DAILY PO 06/05/24 10:00 06/06/24 11:45 10 MG Ondansetron HCl 4 mg Q4HP PRN IV 06/04/24 20:00 Enoxaparin Sodium 40 mg DAILY SC 06/05/24 10:00 06/06/24 11:38 40 MG Acetaminophen 650 mg Q6HP PRN PO 06/04/24 20:00 Dextrose/Sodium Chloride 1,000 ml @ 50 mls/hr Q20H IV 06/05/24 12:15 06/06/24 11:37 50 MLS/HR Laboratory Results Laboratory Tests 06/04/24 18:30 06/05/24 06:25 Urinalysis Test 06/06/24 04:01 Urine Color Colorless (Yellow) Urine Clarity Turbid (Clear) H Urine pH 5.5 (5.0-9.0) Urine Specific [place] 1.012 (1.001-1.035) Urine Protein Negative (Negative) Urine Ketones Negative (Negative) Urine Blood Trace /uL (Negative) H Urine Nitrite Negative (Negative) Urine Bilirubin Negative (Negative) Urine Urobilinogen Normal mg/dL (Negative) Urine Leukocyte Esterase Negative /uL (Negative) Urine RBC 2 /hpf (0 - 4) Urine WBC 7 /hpf (0 - 5) Urine Squamous Epithelial Cells Many /hpf (<5) Urine Renal Epithelial Cells Few /hpf (None Seen) Urine Amorphous Crystals Mod /hpf (None Seen) Urine Bacteria Mod /hpf (None Seen) H Urine Mucus Few (None Seen) Urine Glucose Normal mg/dL (Normal) Microbiology Microbiology Date/Time Source Procedure Growth Status 06/05/24 06:00 Nose MRSA Screen - Final Complete 06/04/24 18:45 Blood Blood Culture - Preliminary NO GROWTH AFTER 24 HOURS OF INCUBATION. Resulted Assessment/Plan Assessment/Plan 69-year-old female is here for syncope episode 1. Syncope rule out cardiac pathology, suspect secondary to orthostatic hypotension 2. Orthostatic hypotension 3. Diabetes mellitus type 2 4. Hypertension 5. Dyslipidemia 6. History of multiple myeloma 7. Left carotid artery stenosis less than 70% -IV fluids, follow up 2D echo cardiology recommendations, check orthostatic vitals Q shift. -physical therapy evaluation and treatment. Plan discussed with: Patient Date of Service: Jun 06, 2024 Billing Provider: HAYDE SIMMS MD Common Visit Codes: [id number] INP/OBS CARE(MOD), NOT BILLABLE HAYDE SIMMS MD Jun 06, 2024 15:47
--- NOTE | 2024-06-06 23:52 | DVHPN2 ---
Progress Note - Dictate Date Seen: Jun 06, 2024 Medical Necessity Reason Pt with a Central, PICC or Fol: No Subjective Patient was seen and evaluated in follow up. Patient is still confused.. UDS returned negative. UA shows trace blood and moderate bacteria. MRSA is negative. Prelim blood culture show no growth. vital signs Vital Sign Date Time Temp Pulse Resp B/P (MAP) Pulse Ox O2 Delivery O2 Flow Rate FiO2 06/06/24 21:00 98.2 75 17 147/69 (95) 96 98.2 06/06/24 08:30 Room Air* 0 21 Total Intake and Output 06/05/24 06/05/24 06/06/24 15:00 23:00 07:00 Intake Total 200 ml 950 ml Output Total 400 ml Balance -200 ml 950 ml medications Current Medications Medications Dose Ordered Sig/Mandi Route Start Time Stop Time Status Last Admin Dose Admin Nitroglycerin 0.4 mg Q5MINP PRN SL 06/04/24 20:00 Morphine Sulfate 2 mg Q30M PRN IV 06/04/24 20:00 Atorvastatin Calcium 20 mg HS PO 06/04/24 22:00 06/06/24 22:06 20 MG Levothyroxine Sodium 25 mcg QAM@0600 PO 06/05/24 06:00 06/06/24 05:38 25 MCG Amlodipine Besylate 10 mg DAILY PO 06/05/24 10:00 06/06/24 11:45 10 MG Ondansetron HCl 4 mg Q4HP PRN IV 06/04/24 20:00 Enoxaparin Sodium 40 mg DAILY SC 06/05/24 10:00 06/06/24 11:38 40 MG Acetaminophen 650 mg Q6HP PRN PO 06/04/24 20:00 Dextrose/Sodium Chloride 1,000 ml @ 50 mls/hr Q20H IV 06/05/24 12:15 06/06/24 11:37 50 MLS/HR objective GENERAL: Awake, confused. LUNGS: Clear. CARDIOVASCULAR: Heart sounds are good. ABDOMEN: Soft. laboratory and microbiology Laboratory Tests 06/05/24 06:25 06/04/24 18:30 Test 06/05/24 06:25 Range/Units Serum Glucose 106 74-106 mg/dL Problem List Syncope, rule out cardiac etiology. Hypertension. Dyslipidemia. ?Sepsis. Type 2 diabetes mellitus. Acute kidney injury. Thyroid disease. Multiple myeloma. Assessment/Plan Continued all current supportive medical care. Amlodipine. Lipitor. DVT prophylactics. Nitro SL. Morphine for pain management. Additional plan as per the hospital course. Plan discussed with: Other ANTONIO LOONEY MD Jun 06, 2024 22:46
[2024-06-07] VITALS (10 sets, daily range): BP systolic 129–158; BP diastolic 65–85; PULSE 66–82; RESP 16–20; TEMP 98.5–99.7; O2SAT 91–96
[2024-06-07] MEDS: cefTRIAXone 1GM/50ML D5W 50 ML IV SCH (14:41)
--- NOTE | 2024-06-07 16:23 | DVHPN2 ---
Subjective 69-year-old female with a known history of diabetes type 2 hypertension dyslipidemia, history of multiple myeloma initially presented to the hospital with a syncope episode. Patient is still remains confused. Patient was has generalized weakness has not getting up yet Reviewed: Care Plan Changes from previous H/P or p: No Changes Objective Vitals Vital Signs Date Time Temp Pulse Resp B/P (MAP) Pulse Ox O2 Delivery O2 Flow Rate FiO2 06/07/24 13:00 98.5 66 16 129/65 (86) 94 98.5 06/07/24 08:00 Room Air* 0 21 Intake/Output Intake and Output 06/07/24 07:00 Intake Total 550 ml Balance 550 ml Intake Oral 0 ml IV Total 550 ml # Voids 2 Exam HEENT pupils are reactive Neck is supple CV is S1-S2 regular rate and rhythm Respiratory bilateral diminished breath sounds bases GI positive bowel sound Extremity no edema 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 Medications Current Medications Medications Dose Ordered Sig/Mandi Route Start Time Stop Time Status Last Admin Dose Admin Nitroglycerin 0.4 mg Q5MINP PRN SL 06/04/24 20:00 Morphine Sulfate 2 mg Q30M PRN IV 06/04/24 20:00 Atorvastatin Calcium 20 mg HS PO 06/04/24 22:00 06/06/24 22:06 20 MG Levothyroxine Sodium 25 mcg QAM@0600 PO 06/05/24 06:00 06/07/24 05:38 25 MCG Amlodipine Besylate 10 mg DAILY PO 06/05/24 10:00 06/07/24 09:32 10 MG Ondansetron HCl 4 mg Q4HP PRN IV 06/04/24 20:00 Enoxaparin Sodium 40 mg DAILY SC 06/05/24 10:00 06/07/24 09:33 40 MG Acetaminophen 650 mg Q6HP PRN PO 06/04/24 20:00 Dextrose/Sodium Chloride 1,000 ml @ 50 mls/hr Q20H IV 06/05/24 12:15 06/07/24 05:20 50 MLS/HR Ceftriaxone Sodium 50 ml @ 100 mls/hr DAILY@09 IV 06/07/24 14:00 06/07/24 14:41 100 MLS/HR Enteral Nutritional Formula 240 ml TIDWM PO 06/07/24 18:00 Laboratory Results Laboratory Tests 06/04/24 18:30 06/05/24 06:25 Urinalysis Test 06/06/24 04:01 Urine Color Colorless (Yellow) Urine Clarity Turbid (Clear) H Urine pH 5.5 (5.0-9.0) Urine Specific [place] 1.012 (1.001-1.035) Urine Protein Negative (Negative) Urine Ketones Negative (Negative) Urine Blood Trace /uL (Negative) H Urine Nitrite Negative (Negative) Urine Bilirubin Negative (Negative) Urine Urobilinogen Normal mg/dL (Negative) Urine Leukocyte Esterase Negative /uL (Negative) Urine RBC 2 /hpf (0 - 4) Urine WBC 7 /hpf (0 - 5) Urine Squamous Epithelial Cells Many /hpf (<5) Urine Renal Epithelial Cells Few /hpf (None Seen) Urine Amorphous Crystals Mod /hpf (None Seen) Urine Bacteria Mod /hpf (None Seen) H Urine Mucus Few (None Seen) Urine Glucose Normal mg/dL (Normal) Microbiology Microbiology Date/Time Source Procedure Growth Status 06/05/24 06:00 Nose MRSA Screen - Final Complete 06/04/24 18:45 Blood Blood Culture - Preliminary NO GROWTH AFTER 48 HOURS OF INCUBATION. Resulted Assessment/Plan Assessment/Plan 69-year-old female is here for syncope episode 1. Syncope rule out cardiac pathology, suspect secondary to orthostatic hypotension 2. Orthostatic hypotension 3. Diabetes mellitus type 2 4. Hypertension 5. Dyslipidemia 6. History of multiple myeloma 7. Left carotid artery stenosis less than 70% 8. UTI -add IV antibiotics, add boost nutrition -IV fluids, follow up 2D echo cardiology recommendations, check orthostatic vitals Q shift. -physical therapy evaluation and treatment. Plan discussed with: Patient My Orders Orders - HAYDE SIMMS MD Procedure Category Date Status Time Ceftriaxone 1gm/50ml PHA 06/07/24 In Process D5w (Rocephin) 14:00 Nutritional PHA 06/07/24 In Process Supplements (Ensure 18:00 Pt Request For Service PT 06/07/24 Logged 14:47 * Set Key Driver CONS 06/07/24 Transmitted Consult Date of Service: Jun 07, 2024 Billing Provider: HAYDE SIMMS MD Common Visit Codes: [id number] INP/OBS CARE(MOD) HAYDE SIMMS MD Jun 07, 2024 16:23
[2024-06-07] MEDS: Ensure HIGH Protein Chocolate 8oz Bottle PO SCH (18:40)
--- NOTE | 2024-06-07 23:34 | DVHPN2 ---
Progress Note - Dictate Date Seen: Jun 07, 2024 Medical Necessity Reason Pt with a Central, PICC or Fol: No Subjective Patient was seen and evaluated in follow up. Patient is confused. He complains of generalized weakness. Patient has not ambulated. Patient recommended for SNF for PT. Patient receiving IV Rocephin. vital signs Vital Sign Date Time Temp Pulse Resp B/P (MAP) Pulse Ox O2 Delivery O2 Flow Rate FiO2 06/07/24 22:59 147/83 (104) 06/07/24 21:00 99.7 82 16 94 99.7 06/07/24 20:10 Room Air* 0 21 Total Intake and Output 06/06/24 06/06/24 06/07/24 15:00 23:00 07:00 Intake Total 550 ml Balance 550 ml medications Current Medications Medications Dose Ordered Sig/Mandi Route Start Time Stop Time Status Last Admin Dose Admin Nitroglycerin 0.4 mg Q5MINP PRN SL 06/04/24 20:00 Morphine Sulfate 2 mg Q30M PRN IV 06/04/24 20:00 Atorvastatin Calcium 20 mg HS PO 06/04/24 22:00 06/07/24 20:56 20 MG Levothyroxine Sodium 25 mcg QAM@0600 PO 06/05/24 06:00 06/07/24 05:38 25 MCG Amlodipine Besylate 10 mg DAILY PO 06/05/24 10:00 06/07/24 09:32 10 MG Ondansetron HCl 4 mg Q4HP PRN IV 06/04/24 20:00 Enoxaparin Sodium 40 mg DAILY SC 06/05/24 10:00 06/07/24 09:33 40 MG Acetaminophen 650 mg Q6HP PRN PO 06/04/24 20:00 Dextrose/Sodium Chloride 1,000 ml @ 50 mls/hr Q20H IV 06/05/24 12:15 06/07/24 05:20 50 MLS/HR Ceftriaxone Sodium 50 ml @ 100 mls/hr DAILY@09 IV 06/07/24 14:00 06/07/24 14:41 100 MLS/HR Enteral Nutritional Formula 240 ml TIDWM PO 06/07/24 18:00 06/07/24 18:40 240 ML objective GENERAL: Awake, confused. LUNGS: Clear. CARDIOVASCULAR: Heart sounds are good. ABDOMEN: Soft. laboratory and microbiology Laboratory Tests 06/05/24 06:25 06/04/24 18:30 Test 06/05/24 06:25 Range/Units Serum Glucose 106 74-106 mg/dL Problem List Syncope, rule out cardiac etiology. Hypertension. Dyslipidemia. ?Sepsis. Type 2 diabetes mellitus. Acute kidney injury. Thyroid disease. Multiple myeloma. Assessment/Plan Continued all current supportive medical care. Amlodipine. Lipitor. DVT prophylactics. Nitro SL. Morphine for pain management. Additional plan as per the hospital course. Plan discussed with: Patient ANTONIO LOONEY MD Jun 07, 2024 23:34
[2024-06-08] VITALS (7 sets, daily range): BP systolic 124–156; BP diastolic 56–87; PULSE 56–84; RESP 16–18; TEMP 97.3–99.4; O2SAT 93–97
--- NOTE | 2024-06-08 17:25 | DVHPN2 ---
Subjective 69-year-old female with a known history of diabetes type 2 hypertension dyslipidemia, history of multiple myeloma initially presented to the hospital with a syncope episode. Patient is still remains confused. 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 Medications Current Medications Medications Dose Ordered Sig/Mandi Route Start Time Stop Time Status Last Admin Dose Admin Nitroglycerin 0.4 mg Q5MINP PRN SL 06/04/24 20:00 Morphine Sulfate 2 mg Q30M PRN IV 06/04/24 20:00 Atorvastatin Calcium 20 mg HS PO 06/04/24 22:00 06/07/24 20:56 20 MG Levothyroxine Sodium 25 mcg QAM@0600 PO 06/05/24 06:00 06/08/24 06:01 25 MCG Amlodipine Besylate 10 mg DAILY PO 06/05/24 10:00 06/08/24 09:35 10 MG Ondansetron HCl 4 mg Q4HP PRN IV 06/04/24 20:00 Enoxaparin Sodium 40 mg DAILY SC 06/05/24 10:00 06/08/24 09:35 40 MG Acetaminophen 650 mg Q6HP PRN PO 06/04/24 20:00 Dextrose/Sodium Chloride 1,000 ml @ 50 mls/hr Q20H IV 06/05/24 12:15 06/08/24 00:54 50 MLS/HR Ceftriaxone Sodium 50 ml @ 100 mls/hr DAILY@09 IV 06/07/24 14:00 06/08/24 09:35 100 MLS/HR Enteral Nutritional Formula 240 ml TIDWM PO 06/07/24 18:00 06/08/24 17:05 240 ML Laboratory Results Laboratory Tests 06/04/24 18:30 06/05/24 06:25 Urinalysis Test 06/06/24 04:01 Urine Color Colorless (Yellow) Urine Clarity Turbid (Clear) H Urine pH 5.5 (5.0-9.0) Urine Specific [place] 1.012 (1.001-1.035) Urine Protein Negative (Negative) Urine Ketones Negative (Negative) Urine Blood Trace /uL (Negative) H Urine Nitrite Negative (Negative) Urine Bilirubin Negative (Negative) Urine Urobilinogen Normal mg/dL (Negative) Urine Leukocyte Esterase Negative /uL (Negative) Urine RBC 2 /hpf (0 - 4) Urine WBC 7 /hpf (0 - 5) Urine Squamous Epithelial Cells Many /hpf (<5) Urine Renal Epithelial Cells Few /hpf (None Seen) Urine Amorphous Crystals Mod /hpf (None Seen) Urine Bacteria Mod /hpf (None Seen) H Urine Mucus Few (None Seen) Urine Glucose Normal mg/dL (Normal) Microbiology Microbiology Date/Time Source Procedure Growth Status 06/05/24 06:00 Nose MRSA Screen - Final Complete 06/04/24 18:45 Blood Blood Culture - Preliminary NO GROWTH AFTER 72 HOURS OF INCUBATION. Resulted Assessment/Plan Assessment/Plan 69-year-old female is here for syncope episode 1. Syncope rule out cardiac pathology, suspect secondary to orthostatic hypotension 2. Orthostatic hypotension 3. Diabetes mellitus type 2 4. Hypertension 5. Dyslipidemia 6. History of multiple myeloma 7. Left carotid artery stenosis less than 70% 8. UTI -IV antibiotics, add boost nutrition -IV fluids, follow up 2D echo cardiology recommendations, check orthostatic vitals Q shift. -physical therapy evaluation and treatment. Plan discussed with: Patient, Other (Bedside RN Carlos) My Orders Orders - HAYDE SIMMS MD Procedure Category Date Status Time * Performance Improvement Consultant CONS 06/08/24 Transmitted Consult Date of Service: Jun 08, 2024 Billing Provider: HAYDE SIMMS MD Common Visit Codes: [id number] INP/OBS CARE(MOD) HAYDE SIMMS MD Jun 08, 2024 17:25
--- NOTE | 2024-06-09 00:03 | DVHPN2 ---
Progress Note - Dictate Date Seen: Jun 08, 2024 Medical Necessity Reason Pt with a Central, PICC or Fol: No Subjective Patient was seen and evaluated in follow up earlier today. No overnight events. Patient resting in bed. Patients NOK declining for HH. No new labs today. vital signs Vital Sign Date Time Temp Pulse Resp B/P (MAP) Pulse Ox O2 Delivery O2 Flow Rate FiO2 06/08/24 20:00 Room Air* 0 21 06/08/24 17:00 98.3 77 16 134/56 (82) 93 98.3 Total Intake and Output 06/08/24 06/08/24 06/09/24 15:00 23:00 07:00 Intake Total 50 ml 1250 ml Balance 50 ml 1250 ml objective GENERAL: Awake. LUNGS: Clear. CARDIOVASCULAR: Heart sounds are good. ABDOMEN: Soft. laboratory and microbiology Laboratory Tests 06/05/24 06:25 06/04/24 18:30 Test 06/05/24 06:25 Range/Units Serum Glucose 106 74-106 mg/dL Problem List Syncope, rule out cardiac etiology. Hypertension. Dyslipidemia. ?Sepsis. Type 2 diabetes mellitus. Acute kidney injury. Thyroid disease. Multiple myeloma. Assessment/Plan Continued all current supportive medical care. Amlodipine. Lipitor. DVT prophylactics. Nitro SL. Morphine for pain management. Additional plan as per the hospital course. Plan discussed with: Patient ANTONIO LOONEY MD Jun 09, 2024 00:03
--- NOTE | 2024-06-10 15:24 | DVHDS2 ---
Discharge Summary Date of Admission Jun 04, 2024 at 19:56 Date of Discharge: Jun 08, 2024 Labs/Diagnostic Data: Laboratory Results Test 06/06/24 04:01 06/05/24 06:25 06/04/24 20:30 06/04/24 19:42 Urine Color Colorless (Yellow) Urine Clarity Turbid (Clear) Urine pH 5.5 (5.0-9.0) Urine Specific [place] 1.012 (1.001-1.035) Urine Protein Negative (Negative) Urine Ketones Negative (Negative) Urine Blood Trace /uL (Negative) Urine Nitrite Negative (Negative) Urine Bilirubin Negative (Negative) Urine Urobilinogen Normal mg/dL (Negative) Urine Leukocyte Esterase Negative /uL (Negative) Urine RBC 2 /hpf (0 - 4) Urine WBC 7 /hpf (0 - 5) Urine Squamous Epithelial Cells Many /hpf (<5) Urine Renal Epithelial Cells Few /hpf (None Seen) Urine Amorphous Crystals Mod /hpf (None Seen) Urine Bacteria Mod /hpf (None Seen) Urine Mucus Few (None Seen) Urine Glucose Normal mg/dL (Normal) Urine Opiates Screen Neg (NEGATIVE) Urine Fentanyl Screen Neg (NEGATIVE) Urine Barbiturates Screen Neg (NEGATIVE) Urine Phencyclidine Screen Neg (NEGATIVE) Urine Amphetamines Screen Neg (NEGATIVE) Urine Benzodiazepines Screen Neg (NEGATIVE) Urine Cocaine Screen Neg (NEGATIVE) Urine Cannabinoids Screen Neg (NEGATIVE) Sodium Level 139 mmol/L (136-145) Potassium Level 3.5 mmol/L (3.5-5.1) Chloride Level 107 mmol/L (98-107) Carbon Dioxide Level 26 mmol/L (20-31) Anion Gap 6 (5-15) Blood Urea Nitrogen 28 mg/dL (9-23) Creatinine 1.16 mg/dL (0.550-1.02) Glomerular Filtration Rate Calc 50 mL/min (>90) BUN/Creatinine Ratio 24.1 (10.0-20.0) Serum Glucose 106 mg/dL (74-106) Hemoglobin A1c 6.5 % A1C (<5.7) Calcium Level 10.4 mg/dL (8.7-10.4) Triglycerides Level 118 mg/dL (< 150) Cholesterol Level 152 mg/dL (< 200) LDL Cholesterol 86 mg/dL (< 100) HDL Cholesterol 30 mg/dL (40-59) Thyroid Stimulating Hormone (TSH) 3.95 uIU/mL (0.55-4.78) Lactic Acid Level 1.2 mmol/L (0.4-2.0) POC Glucose 132 mg/dl (70-106) Test 06/04/24 19:25 06/04/24 18:30 Troponin I High Sensitivity 26 ng/L (</=34) White Blood Count 14.8 10^3/uL (4.4-10.8) Red Blood Count 3.42 10^6/uL (4.0-5.20) Hemoglobin 9.3 g/dL (12.2-16.2) Hematocrit 28.7 % (36.0-46.0) Mean Corpuscular Volume 84.0 fL (80.0-100.0) Mean Corpuscular Hemoglobin 27.3 pg (28.0-32.0) Mean Corpuscular Hemoglobin Concent 32.5 g/dL (32.0-36.0) Red Cell Distribution Width 15.7 % (11.8-14.3) Platelet Count 147 10^3/uL (140-450) Mean Platelet Volume 9.1 fL (6.9-10.8) Neutrophils (%) (Auto) 82.8 % (37.0-80.0) Lymphocytes (%) (Auto) 12.9 % (10.0-50.0) Monocytes (%) (Auto) 3.4 % (0.0-12.0) Eosinophils (%) (Auto) 0.7 % (0.0-7.0) Basophils (%) (Auto) 0.2 % (0.0-2.0) Neutrophils # (Auto) 12.3 10 ^3/uL (1.6-8.6) Lymphocytes # (Auto) 1.9 10 ^3/uL (0.4-5.4) Monocytes # (Auto) 0.5 10 ^3/uL (0-1.3) Eosinophils # (Auto) 0.1 10 ^3/uL (0-0.8) Basophils # (Auto) 0 10 ^3/uL (0-0.2) Nucleated Red Blood Cells 0.0 % Magnesium Level 1.8 mg/dL (1.6-2.6) Total Bilirubin 0.2 mg/dL (0.2-1.0) Aspartate Amino Transferase (AST) 95 U/L (13-40) Alanine Aminotransferase (ALT) 186 U/L (7-40) Alkaline Phosphatase 155 U/L (46-116) Total Protein 7.3 g/dL (5.7-8.2) Albumin 3.6 g/dL (3.2-4.8) Other Laboratory Tests 06/05/24 06:25 06/04/24 18:30 Brief Hx & Hospital Course: 69-year-old female with a known history of diabetes mellitus type 2, hypertension, dyslipidemia, previous history of multiple myeloma initially admitted to the hospital with syncope episode. Patient was suspected secondary to orthostatic hypotension patient was seen by Cardiology during the hospital stay. Patient's left against medical advice before completion of workup and treatment. Condition at Discharge: Undetermined Final Diagnosis/Problems List 1. Syncope rule out cardiac pathology, suspect secondary to orthostatic hypotension 2. Orthostatic hypotension 3. Diabetes mellitus type 2 4. Hypertension 5. Dyslipidemia 6. History of multiple myeloma 7. Left carotid artery stenosis less than 70% 8. UTI -IV antibiotics, add boost nutrition Discharge Disposition: AMA SNF Discharge Will this Physician continue t: No Discharge Statement: "Patient was advised to return to the ER or call 911 if any headaches, dizziness, shortness of breath, chest pain, abdominal pain, bleeding, fevers, or worsening of medical condition. Patient was counseled about treatment plan, medications, possible side effects, patientverbalized understanding. All questions were answered to the best of my ability. This discharge took greater then 30 minutes in planning, reviewing documentation, counseling the patient, and discussing with other team members." ASSESSMENT ASSESSMENT Assessment Date of Service: Jun 10, 2024 Billing Provider: HAYDE SIMMS MD Common Visit Codes: 21624-GIU/OBS DISCH DAY <30MIN HAYDE SIMMS MD Jun 10, 2024 15:24
== END 2024-06-08 21:06 | disposition left against medical advice (07) | DRG 312 ==
LOC: EDBD 17:55 → ER 17:55 → EDUNIT# 17:55 → TELE 19:56 → TELE-EAST 19:59
PROVIDERS: ADMIT Nurse Practitioner; ATTEND Internal Medicine
DX: I95.1 Orthostatic hypotension (principal); C90.00 Multiple myeloma not having achieved remission; N17.9 Acute kidney failure, unspecified; N39.0 Urinary tract infection, site not specified; E11.9 Type 2 diabetes mellitus without complications; E78.5 Hyperlipidemia, unspecified; I10 Essential (primary) hypertension; D64.9 Anemia, unspecified; K21.9 Gastro-esophageal reflux disease without esophagitis; E03.9 Hypothyroidism, unspecified; R74.01 Elevation of levels of liver transaminase levels; I65.23 Occlusion and stenosis of bilateral carotid arteries; Z79.899 Other long term (current) drug therapy; Z90.710 Acquired absence of both cervix and uterus; Z80.3 Family history of malignant neoplasm of breast; Z82.49 Family history of ischemic heart disease and other diseases of the circulatory system; Z82.3 Family history of stroke
CPT/HCPCS: 36415; 70450; 71045; 80048; 80053; 80061; 80307; 81001; 82962; 83036; 83605; 83735; 84443; 84484; 85025; 87040; 87081; 93005; 93306; 93886; 97116; 97163; 97530; 99291; G0378

== ENCOUNTER 2024-06-28 15:30 | Emergency (ER) | payer OTHER, MEDICAID ==
[~2024-06-28] VITALS: Ht 167.6 cm; Wt 50.0 kg
[2024-06-28 16:20] LABS: Basophils # (auto) 0 10 ^3/uL (0-0.2); Basophils % (auto) 0.2 % (0.0-2.0); Eosinophils # (auto) 0.2 10 ^3/uL (0-0.8); Hematocrit 16.8 % (36.0-46.0); Lymphocytes # (auto) 2.9 10 ^3/uL (0.4-5.4); Lymphocytes % (auto) 27.4 % (10.0-50.0); Monocytes # (auto) 0.5 10 ^3/uL (0-1.3); Monocytes % (auto) 5.1 % (0.0-12.0); Neutrophils # (auto) 6.9 10 ^3/uL (1.6-8.6); Platelet Count (auto) 132 10^3/uL (140-450); Red Cell Distribution Width 15.7 % (11.8-14.3)
[2024-06-28 16:23] LABS: Eosinophils % (auto) 1.9 % (0.0-7.0); Mean Corpuscular Hemoglobin 27.3 pg (28.0-32.0); Mean Corpuscular Hgb Conc. 34.1 g/dL (32.0-36.0); Neutrophils % (auto) 65.4 % (37.0-80.0); White Blood Cell 10.6 10^3/uL (4.4-10.8)
[2024-06-28 16:51] LABS: Hemoglobin 5.7 g/dL (12.2-16.2)
--- NOTE | 2024-06-28 17:56 | ED.PDOC ---
History of Present Illness HPI Comments 69Y F with PMHx DM, HTN, HLD, and anemia presents to ED for chief complaint abnormal labs. Per son, pt receives an outpatient blood transfusion every month but PCP did not schedule an appt for the transfusion in 2024. Per son, pt has weakness and SOB. Last labs were drawn on 05/26/2024. Chief Complaint: Abnormal LAB's Time Seen by MD: 17:45 Primary Care Provider: unknown Reviewed Notes: Nurses Notes, Medications, Allergies Allergies: Coded Allergies: NO KNOWN ALLERGIES (Unverified , 12/07/22) Home Meds Reported Medications Pantoprazole Sodium Sesquihydr (Pantoprazole Sodium) 40 Mg Tab, 40 MG PO DAILY for GERD, TAB 05/03/24 Rosuvastatin Calcium (Crestor) 20 Mg Tab, 1 TAB PO DAILY, #30 TAB 5 Refills 05/03/24 Lisinopril (Lisinopril) 10 Mg Tab, 10 MG PO DAILY for HTN for 30 Days, MG 05/03/24 Deferasirox (Jadenu) 360 Mg Tab, 360 MG PO DAILY for high iron, TAB 05/03/24 Glucose Blood (Freestyle Lite Test Strip) Lite Umu, XX BID for diabetes mellitus 12/30/23 Levothyroxine Sodium (Levothyroxine Sodium) 25 Mcg Tab, 1 TAB PO DAILY 06/14/23 Amlodipine Besylate (Amlodipine Besylate) 10 Mg Tab, 1 TAB PO DAILY 02/15/23 Potassium Chloride (Potassium Chloride ER) 20 Meq Tab, 1 TAB PO DAILY 02/15/23 Information Source: Relative (Child) Mode of Arrival: Ambulatory Severity: Severe Timing: Hours Duration: Since onset Past Medical History PAST MEDICAL HISTORY: Anemia, Cancer, DM, GERD, High Lipids, HTN, Thyroid Surgical History: Appendectomy, Hysterectomy INTELLIGENCE CLERK History: No Pertinent INTELLIGENCE CLERK History, Uterine Fibroids Family History Family History: Reviewed,noncontributory to illness Social History Smoker: Non-Smoker Alcohol: Denies ETOH Use Drugs: Denies Drug Use Lives In: Home, Half-Way Constitutional: reports: weakness; denies: chills, diaphoresis, fatigue, fever, malaise, sweats, others EENTM: denies: blurred vision, double vision, ear bleeding, ear discharge, ear drainage, ear pain, ear ringing, eye pain, eye redness, hearing loss, mouth pain, mouth swelling, nasal discharge, nose bleeding, nose congestion, nose pain, photophobia, tearing, throat pain, throat swelling, voice changes, others Respiratory: reports: shortness of breath; denies: cough, hemoptysis, orthopnea, SOB at rest, SOB with excertion, stridor, wheezing, others Cardiovascular: denies: chest pain, dizzy spells, diaphoresis, Dyspnea on exertion, edema, irregular heart beat, left arm pain, lightheadedness, palpitations, PND, syncope, others Gastrointestinal: denies: abdomen distended, abdominal pain, blood streaked bowels, constipated, diarrhea, dysphagia, difficulty swallowing, hematemesis, melena, nausea, poor appetite, poor fluid intake, rectal bleeding, rectal pain, vomiting, others Genitourinary: denies: abnormal vagina bleeding, burning, dyspareunia, dysuria, flank pain, frequency, hematuria, incontinence, pain, , vagina discharge, urgency, others Neurological: denies: dizziness, fainting, headache, left sided numbness, left sided weakness, numbness, paresthesia, pre-existing deficit, right sided numbness, right sided weakness, seizure, speech problems, tingling, tremors, weakness, others Musculoskeletal: denies: back pain, gout, joint pain, joint swelling, muscle pain, muscle stiffness, neck pain, others Integumetry: denies: bruises, change in color, change in hair/nails, dryness, laceration, lesions, lumps, rash, wounds, others Allergic/Immunocompromised: denies: Difficulty Healing, Frequent Infections, Hives, Itching, others Hematologic/Lymphatic: denies: anemia, blood clots, easy bleeding, easy bruising, swollen glands, others Endocrine: denies: excessive hunger, excessive sweating, excessive thirst, excessive urination, flushing, intolerance to cold, intolerance to heat, unexplained weight gain, unexplained weight loss, others Psychiatric: denies: anxiety, bipolar disorder, depression, hopeless, panic disorder, schizophrenia, sleepless, suicidal, others All Other Systems: Reviewed and Negative Physical Exam General Appearance: No Apparent Distress HEENT: Other (Unremarkable) Neck: Full Range of Motion, Normal Inspection Respiratory: Lungs Clear, No Accessory Muscle Use, No Respiratory Distress, Normal Breath Sounds Cardiovascular: No Edema, No JVD, Regular Rate/Rhythm Breast Exam: Deferred Gastrointestinal: Non Tender, Soft Genitalia: Deferred Pelvic: Deferred Rectal: Deferred Extremities: Normal inspection, Normal range of motion Musculoskeletal : Apperance: Normal Neurologic: Alert, Normal Affect, Normal Mood, Other (Moves all extremities. No gross focal deficit.) Cerebellar Function: NOT DONE Reflexes: NOT DONE Skin: Dry, Pallor, Warm Lymphatic: NOT DONE Was a procedure done? Was a procedure done?: No Differential Dx Considerations may include: anemia X-Ray, Labs, Meds, VS Vital Signs Date Time Temp Pulse Resp B/P (MAP) Pulse Ox O2 Delivery O2 Flow Rate FiO2 06/28/24 18:40 109 22 118/53 (74) 99 06/28/24 15:40 97.3 99 16 107/59 (75) 100 Lab Test 06/28/24 15:59 Range/Units White Blood Count 10.6 4.4-10.8 10^3/uL Red Blood Count 2.10 L 4.0-5.20 10^6/uL Hemoglobin 5.7 *L 12.2-16.2 g/dL Hematocrit 16.8 L 36.0-46.0 % Mean Corpuscular Volume 80.0 80.0-100.0 fL Mean Corpuscular Hemoglobin 27.3 L 28.0-32.0 pg Mean Corpuscular Hemoglobin Concent 34.1 32.0-36.0 g/dL Red Cell Distribution Width 15.7 H 11.8-14.3 % Platelet Count 132 L 140-450 10^3/uL Mean Platelet Volume 9.2 6.9-10.8 fL Neutrophils (%) (Auto) 65.4 37.0-80.0 % Lymphocytes (%) (Auto) 27.4 10.0-50.0 % Monocytes (%) (Auto) 5.1 0.0-12.0 % Eosinophils (%) (Auto) 1.9 0.0-7.0 % Basophils (%) (Auto) 0.2 0.0-2.0 % Neutrophils # (Auto) 6.9 1.6-8.6 10 ^3/uL Lymphocytes # (Auto) 2.9 0.4-5.4 10 ^3/uL Monocytes # (Auto) 0.5 0-1.3 10 ^3/uL Eosinophils # (Auto) 0.2 0-0.8 10 ^3/uL Basophils # (Auto) 0 0-0.2 10 ^3/uL Nucleated Red Blood Cells 0.0 % Prothrombin Time 10.3 9.3-11.8 sec Prothrombin Time INR 0.97 0.9-1.15 Sodium Level 139 136-145 mmol/L Potassium Level 3.3 L 3.5-5.1 mmol/L Chloride Level 107 98-107 mmol/L Carbon Dioxide Level 27 20-31 mmol/L Anion Gap 5 5-15 Blood Urea Nitrogen 14 9-23 mg/dL Creatinine 0.89 0.550-1.02 mg/dL Glomerular Filtration Rate Calc 69 >90 mL/min BUN/Creatinine Ratio 15.7 10.0-20.0 Serum Glucose 110 H 74-106 mg/dL Calcium Level 10.5 H 8.7-10.4 mg/dL X-Ray, Labs, Meds, VS Comment 69Y F with PMHx DM, HTN, HLD, and anemia who receives monthly blood transfusions brought in by son for evaluation and possible transfusion due to shortness breath and generalized weakness Vitals remarkable for BP 107/59 Exam remarkable for pallor Rhythm strip independently interpreted by me: Sinus rhythm, rate 99, no ectopy. CBC remarkable for hemoglobin 5.7, hematocrit 16.8, platelets 132, metabolic panel remarkable for potassium 3.3, calcium 10.5, coag panel pending Patient received the following treatment in the ED: Patient was typed and crossed for 2 units of packed red cells, and blood transfusion was ordered. Plan was to hospitalize the patient for blood transfusion and Heme-Onc evaluation. Patient was called multiple times for transfusion, however there was no answer. It was assumed the patient and son had eloped prior to completion of treatment and hospital admission. Time of 1ST Reevaluation: 18:15 Reevaluation 1ST: Unchanged Patient Education/Counseling: Diagnosis, Treatment Family Education/Counseling: Diagnosis, Treatment Departure 1 Departure Time of Disposition: 17:00 Impression: Primary Impression: Severe anemia Additional Impression: Thrombocytopenia Disposition: ADMITTED INPATIENT Admit to: Med Surg Condition: Guarded Critical Care Note Critical Care Time?: No Stability Stability form required: No Heart Score Heart Score: Heart Score Response (Comments) Value History N/A 0 EKG N/A 0 Age N/A 0 Risk Factors N/A 0 Troponin N/A 0 Total 0 I personally scribed for JESSE RAHMAN MD ([email or web address]) on 06/28/24 at 17:56. Electronically submitted by Marcie Bello ([email or web address]). JESSE RAHMAN MD Jun 28, 2024 17:56
[2024-06-28 18:40] VITALS: BP 118/53; PULSE 109; RESP 22; O2SAT 99
[2024-06-28 19:09] LABS: Chloride 107 mmol/L (98-107); Potassium 3.3 mmol/L (3.5-5.1); Sodium 139 mmol/L (136-145)
[2024-06-28 19:10] LABS: Anion Gap 5 (5-15); Carbon Dioxide 27 mmol/L (20-31)
[2024-06-28 19:11] LABS: Calcium 10.5 mg/dL (8.7-10.4)
[2024-06-28 19:15] LABS: BUN/Creatinine Ratio 15.7 (10.0-20.0); Blood Urea Nitrogen 14 mg/dL (9-23)
[2024-06-28 19:16] LABS: Glucose 110 mg/dL (74-106)
[2024-06-28 19:21] LABS: INR 0.97 (0.9-1.15); Prothrombin Time 10.3 sec (9.3-11.8)
[2024-06-28] MEDS ORDERED: ACETAMINOPHEN 325 MG TAB PO PRN (19:45)
[2024-06-28] MEDS ORDERED: TEMAZEPAM 15 MG CAP PO PRN (19:45)
[2024-06-28] MEDS ORDERED: ONDANSETRON HCL 4 MG/2 ML VIAL IV PRN (19:45)
[2024-06-28] MEDS ORDERED: POTASSIUM CHL 20 Meq TABLET PO ONE (20:00)
[2024-06-28] MEDS ORDERED: ATORVASTATIN 20 MG TAB PO SCH (22:00)
[2024-06-29] MEDS ORDERED: PANTOPRAZOLE 40 MG TAB PO SCH (06:00)
[2024-06-29] MEDS ORDERED: LEVOTHYROXINE SODIUM 25 MCG TAB PO SCH (06:00)
[2024-06-29] MEDS ORDERED: LISINOPRIL 5 MG TAB PO SCH (10:00)
== END 2024-06-28 22:21 | disposition left against medical advice (07) ==
LOC: ER 15:30 → UNDOADMIN 19:42 → OVERFLOW 19:42 → UNDODISIN 22:21 → OVERFLOW 22:21
DX: D64.9 Anemia, unspecified (principal); D69.6 Thrombocytopenia, unspecified
CPT/HCPCS: 36415; 80048; 85025; 85610; 86850; 86900; 86901; 86920; G0378

== ENCOUNTER 2024-06-29 14:13 | Inpatient (IN) | payer OTHER, MEDICAID ==
[~2024-06-29] VITALS: Ht 167.6 cm; Wt 60.0 kg
[2024-06-29] VITALS (7 sets, daily range): BP systolic 111–130; BP diastolic 54–62; PULSE 91–105; RESP 10–97; TEMP 98.1–99.2; O2SAT 98–100
--- NOTE | 2024-06-29 15:06 | ED.PDOC ---
History of Present Illness HPI Comments 69 year old female presents to the ED with chief complaint of severe anemia. Patient's grandson reports that the patient requires a blood transfusion for severe anemia along with patient experiencing weakness, pale skin, and SOB. Grandson relays that the patient was seen yesterday, but had eloped due to it b eing very cold in the lobby. Grandson states patient is normally able to receive monthly transfusions through outpatient clinic, but was unable to set it up this month. Patient denies any N/V, headache, dizziness, chest pain, or cough. Chief Complaint: Abnormal LAB's Time Seen by MD: 15:02 Primary Care Provider: loly Carrasco Notes: Nurses Notes, Medications, Allergies Allergies: Coded Allergies: NO KNOWN ALLERGIES (Unverified , 12/07/22) Home Meds Reported Medications Pantoprazole Sodium Sesquihydr (Pantoprazole Sodium) 40 Mg Tab, 40 MG PO DAILY for GERD, TAB 05/03/24 Rosuvastatin Calcium (Crestor) 20 Mg Tab, 1 TAB PO DAILY, #30 TAB 5 Refills 05/03/24 Lisinopril (Lisinopril) 10 Mg Tab, 10 MG PO DAILY for HTN for 30 Days, MG 05/03/24 Deferasirox (Jadenu) 360 Mg Tab, 360 MG PO DAILY for high iron, TAB 05/03/24 Glucose Blood (Freestyle Lite Test Strip) Lite Umu, XX BID for diabetes mellitus 12/30/23 Levothyroxine Sodium (Levothyroxine Sodium) 25 Mcg Tab, 1 TAB PO DAILY 06/14/23 Amlodipine Besylate (Amlodipine Besylate) 10 Mg Tab, 1 TAB PO DAILY 02/15/23 Potassium Chloride (Potassium Chloride ER) 20 Meq Tab, 1 TAB PO DAILY 02/15/23 Information Source: Patient, Relative (Grandson) Mode of Arrival: Wheelchair Severity: Moderate Timing: Hours Duration: Since onset Prehospital treatment: None Medication Refill: For: Other Past Medical History PAST MEDICAL HISTORY: Anemia, Cancer, DM, GERD, High Lipids, HTN, Thyroid Surgical History: Appendectomy, Hysterectomy 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 ALARM INSPECTOR History, Uterine Fibroids Family History Family History: Reviewed,noncontributory to illness Social History Smoker: Non-Smoker Alcohol: Denies ETOH Use Drugs: Denies Drug Use Lives In: Home, Intermediate Constitutional: reports: weakness; denies: chills, diaphoresis, fatigue, fever, malaise, sweats, others EENTM: denies: blurred vision, double vision, ear bleeding, ear discharge, ear drainage, ear pain, ear ringing, eye pain, eye redness, hearing loss, mouth pain, mouth swelling, nasal discharge, nose bleeding, nose congestion, nose pain, photophobia, tearing, throat pain, throat swelling, voice changes, others Respiratory: reports: shortness of breath; denies: cough, hemoptysis, orthopnea, SOB at rest, SOB with excertion, stridor, wheezing, others Cardiovascular: denies: chest pain, dizzy spells, diaphoresis, Dyspnea on exertion, edema, irregular heart beat, left arm pain, lightheadedness, pa lpitations, PND, syncope, others Gastrointestinal: denies: abdomen distended, abdominal pain, blood streaked bowels, constipated, diarrhea, dysphagia, difficulty swallowing, hematemesis, melena, nausea, poor appetite, poor fluid intake, rectal bleeding, rectal pain, vomiting, others Genitourinary: denies: abnormal vagina bleeding, burning, dyspareunia, dysuria, flank pain, frequency, hematuria, incontinence, pain, , vagina discharge, urgency, others Neurological: denies: dizziness, fainting, headache, left sided numbness, left sided weakness, numbness, paresthesia, pre-existing deficit, right sided numbness, right sided weakness, seizure, speech problems, tingling, tremors, weakness, others Musculoskeletal: denies: back pain, gout, joint pain, joint swelling, muscle pain, muscle stiffness, neck pain, others Integumetry: reports: change in color (Pale); denies: bruises, change in hair/nails, dryness, laceration, lesions, lumps, rash, wounds, others Allergic/Immunocompromised: denies: Difficulty Healing, Frequent Infections, Hives, Itching, others Hematologic/Lymphatic: reports: anemia; denies: blood clots, easy bleeding, easy bruising, swollen glands, others Endocrine: denies: excessive hunger, excessive sweating, excessive thirst, excessive urination, flushing, intolerance to cold, intolerance to heat, unexplained weight gain, unexplained weight loss, others Psychiatric: denies: anxiety, bipolar disorder, depression, hopeless, panic disorder, schizophrenia, sleepless, suicidal, others All Other Systems: Reviewed and Negative Physical Exam General Appearance: Moderate Distress, Normal HEENT: Normal ENT Inspection, PERRL/EOMI Neck: Full Range of Motion, Non-Tender, Normal, Normal Inspection Respiratory: Chest Non-Tender, Lungs Clear, No Accessory Muscle Use, No Respiratory Distress, Normal Breath Sounds Cardiovascular: No Edema, No JVD, No Murmur, No Gallop, Normal Peripheral Pulse s, Regular Rate/Rhythm Breast Exam: Deferred Gastrointestinal: No Organomegaly, Non Tender, No Pulsatile Mass, Normal Bowel Sounds, Soft Genitalia: Deferred Pelvic: Deferred Rectal: Deferred Extremities: No calf tenderness, Normal capillary refill, Normal inspection, Normal range of motion, Non-tender, No pedal edema Musculoskeletal : Apperance: Normal Neurologic: Alert, insert cutter II-XII nml as Tested, No Motor Deficits, Normal Affect, Normal Mood, No Sensory Deficits Cerebellar Function: NOT DONE Reflexes: NOT DONE Skin: Dry, Pallor, Warm Peripheral Pulses: 3+ Radial (R), 3+ Radial (L) Lymphatic: No Adenopathy Was a procedure done? Was a procedure done?: No Differential Dx Considerations may include: Anemia Kidney disease X-Ray, Labs, Meds, VS Vital Signs Date Time Temp Pulse Resp B/P (MAP) Pulse Ox O2 Delivery O2 Flow Rate FiO2 06/29/24 16:00 70 06/29/24 14:34 98.8 110 19 108/67 (81) 100 Lab Test 06/29/24 15:29 Range/Units White Blood Count 9.4 4.4-10.8 10^3/uL Red Blood Count 1.81 L 4.0-5.20 10^6/uL Hemoglobin 4.9 *L 12.2-16.2 g/dL Hematocrit 14.7 #L 36.0-46.0 % Mean Corpuscular Volume 81.3 80.0-100.0 fL Mean Corpuscular Hemoglobin 27.3 L 28.0-32.0 pg Mean Corpuscular Hemoglobin Concent 33.6 32.0-36.0 g/dL Red Cell Distribution Width 15.8 H 11.8-14.3 % Platelet Count 129 L 140-450 10^3/uL Mean Platelet Volume 9.1 6.9-10.8 fL Neutrophils (%) (Auto) 66.6 37.0-80.0 % Lymphocytes (%) (Auto) 27.0 10.0-50.0 % Monocytes (%) (Auto) 4.4 0.0-12.0 % Eosinophils (%) (Auto) 1.8 0.0-7.0 % Basophils (%) (Auto) 0.2 0.0-2.0 % Neutrophils # (Auto) 6.2 1.6-8.6 10 ^3/uL Lymphocytes # (Auto) 2.5 0.4-5.4 10 ^3/uL Monocytes # (Auto) 0.4 0-1.3 10 ^3/uL Eosinophils # (Auto) 0.2 0-0.8 10 ^3/uL Basophils # (Auto) 0 0-0.2 10 ^3/uL Nucleated Red Blood Cells 0.0 % Sodium Level 140 136-145 mmol/L Potassium Level 3.2 L 3.5-5.1 mmol/L Chloride Level 109 H 98-107 mmol/L Carbon Dioxide Level 24 20-31 mmol/L Anion Gap 7 5-15 Blood Urea Nitrogen 12 9-23 mg/dL Creatinine 0.72 0.550-1.02 mg/dL Glomerular Filtration Rate Calc 89 >90 mL/min BUN/Creatinine Ratio 16.7 10.0-20.0 Serum Glucose 120 H 74-106 mg/dL Calcium Level 10.5 H 8.7-10.4 mg/dL Patient alert. Pale. Severe anemia. Vitals stable. Was here for the same condition yesterday. Reviewed her visit. Potassium slightly low. Establish intravenous access. Was given blood. It will correct potassium. Explained to the family. Continue cardiac monitoring. Time of 1ST Reevaluation: 16:02 Reevaluation 1ST: Unchanged Patient Education/Counseling: Diagnosis, Treatment Family Education/Counseling: No Family Present Additional Information I reviewed the following notes from patient's past medical encounters: 06/28/24 for Severe anemia The following tests were ordered, and results were reviewed by me: Additional Information was gathered from interviewing the following independent historians: Grandson I reviewed and agreed with the following test results read by other providers: I discussed treatment and results with medical personnel and grandson. Departure 1 Departure Time of Disposition: 17:03 Impression: Primary Impression: Severe anemia Disposition: 09 ADMITTED INPATIENT Admit to: Med Surg Condition: Guarded Critical Care Note Critical Care Time?: Yes (90 min-critical care time only) Stability Stability form required: No Heart Score Heart Score: Heart Score Response (Comments) Value History N/A 0 EKG N/A 0 Age N/A 0 Risk Factors N/A 0 Troponin N/A 0 Total 0 I personally scribed for RUTH HUDSON MD ([email or web address]) on 06/29/24 at 15:06. Electronically submitted by Jeffrey Gutierrez ([email or web address]). RUTH HUDSON MD Jun 29, 2024 15:06
[2024-06-29 16:05] LABS: Basophils # (auto) 0 10 ^3/uL (0-0.2); Basophils % (auto) 0.2 % (0.0-2.0); Lymphocytes # (auto) 2.5 10 ^3/uL (0.4-5.4); Monocytes # (auto) 0.4 10 ^3/uL (0-1.3); Platelet Count (auto) 129 10^3/uL (140-450)
[2024-06-29 16:06] LABS: Eosinophils # (auto) 0.2 10 ^3/uL (0-0.8); Eosinophils % (auto) 1.8 % (0.0-7.0); Hematocrit 14.7 % (36.0-46.0); Mean Corpuscular Hemoglobin 27.3 pg (28.0-32.0); Mean Corpuscular Hgb Conc. 33.6 g/dL (32.0-36.0); Mean Corpuscular Volume 81.3 fL (80.0-100.0); Monocytes % (auto) 4.4 % (0.0-12.0); Neutrophils # (auto) 6.2 10 ^3/uL (1.6-8.6); Neutrophils % (auto) 66.6 % (37.0-80.0); Red Blood Cells 1.81 10^6/uL (4.0-5.20); Red Cell Distribution Width 15.8 % (11.8-14.3); White Blood Cell 9.4 10^3/uL (4.4-10.8)
[2024-06-29 16:13] LABS: Sodium 140 mmol/L (136-145)
[2024-06-29 16:14] LABS: Anion Gap 7 (5-15); Carbon Dioxide 24 mmol/L (20-31)
[2024-06-29 16:15] LABS: Hemoglobin 4.9 g/dL (12.2-16.2)
[2024-06-29 16:20] LABS: BUN/Creatinine Ratio 16.7 (10.0-20.0); Blood Urea Nitrogen 12 mg/dL (9-23)
[2024-06-29 16:30] LABS: Calcium 10.5 mg/dL (8.7-10.4); Chloride 109 mmol/L (98-107); Glucose 120 mg/dL (74-106); Potassium 3.2 mmol/L (3.5-5.1)
[2024-06-29] MEDS ORDERED: ONDANSETRON HCL 4 MG/2 ML VIAL IV PRN (20:15)
[2024-06-29] MEDS ORDERED: TEMAZEPAM 15 MG CAP PO PRN (20:15)
[2024-06-29] MEDS ORDERED: ACETAMINOPHEN 325 MG TAB PO PRN (20:15)
--- NOTE | 2024-06-29 20:19 | DVHHP2 ---
History of Present Illness Reason for Visit: Anemia History of Present Illness 69-year-old male presents for evaluation anemia. Patient reports receiving monthly blood transfusions. He states over the past three days he has been feeling weak, having pannus skin and developed shortness for breath yesterday. Denies any melena or hematuria. Other acute complaints reported. Past Medical History GERD, dyslipidemia, hypertension, thyroid, diabetes mellitus, anemia and cancer Past Surgical History Hysterectomy and appendectomy Family History Noncontributory Smoke: No ALCOHOL: none Drugs: None Lives: with Family Review of Systems Review of Systems Review of systems are currently negative otherwise addressed in HPI Allergies: Coded Allergies: NO KNOWN ALLERGIES (Unverified , 12/07/22) Exam Vital Signs Vital Signs Date Time Temp Pulse Resp B/P (MAP) Pulse Ox O2 Delivery O2 Flow Rate FiO2 06/29/24 20:00 103 06/29/24 19:45 20 98 Room Air* 0 21 06/29/24 19:45 99.5 120/51 (74) 99.5 Exam Gen: 69-year-old female in mild distress Skin: Warm, dry, normal color and texture, no rash. HEENT: Normocephalic atraumatic, mucous membranes moist and pink. Neck: Cervical and supraclavicular nodes normal without enlargement, trachea is midline, thyroid gland is normal without masses. Pulmonary: Clear to auscultation and percussion bilaterally. Cardiac: Regular rate and rhythm. No murmur Abdomen: Soft, nontender, nondistended, bowel sounds present all 4 quadrants, no guarding, no rigidity, no organomegaly. Extremities: No cyanosis, clubbing, no edema Neuro: Cranial nerves II through XII grossly intact, normal affect and speech, no focal motor deficits. Labs/Xrays Labs Test 06/29/24 15:29 Range/Units White Blood Count 9.4 4.4-10.8 10^3/uL Red Blood Count 1.81 L 4.0-5.20 10^6/uL Hemoglobin 4.9 *L 12.2-16.2 g/dL Hematocrit 14.7 #L 36.0-46.0 % Mean Corpuscular Volume 81.3 80.0-100.0 fL Mean Corpuscular Hemoglobin 27.3 L 28.0-32.0 pg Mean Corpuscular Hemoglobin Concent 33.6 32.0-36.0 g/dL Red Cell Distribution Width 15.8 H 11.8-14.3 % Platelet Count 129 L 140-450 10^3/uL Mean Platelet Volume 9.1 6.9-10.8 fL Neutrophils (%) (Auto) 66.6 37.0-80.0 % Lymphocytes (%) (Auto) 27.0 10.0-50.0 % Monocytes (%) (Auto) 4.4 0.0-12.0 % Eosinophils (%) (Auto) 1.8 0.0-7.0 % Basophils (%) (Auto) 0.2 0.0-2.0 % Neutrophils # (Auto) 6.2 1.6-8.6 10 ^3/uL Lymphocytes # (Auto) 2.5 0.4-5.4 10 ^3/uL Monocytes # (Auto) 0.4 0-1.3 10 ^3/uL Eosinophils # (Auto) 0.2 0-0.8 10 ^3/uL Basophils # (Auto) 0 0-0.2 10 ^3/uL Nucleated Red Blood Cells 0.0 % Sodium Level 140 136-145 mmol/L Potassium Level 3.2 L 3.5-5.1 mmol/L Chloride Level 109 H 98-107 mmol/L Carbon Dioxide Level 24 20-31 mmol/L Anion Gap 7 5-15 Blood Urea Nitrogen 12 9-23 mg/dL Creatinine 0.72 0.550-1.02 mg/dL Glomerular Filtration Rate Calc 89 >90 mL/min BUN/Creatinine Ratio 16.7 10.0-20.0 Serum Glucose 120 H 74-106 mg/dL Calcium Level 10.5 H 8.7-10.4 mg/dL Assessment/Plan Assessment/Plan Assessment Symptomatic anemia Diabetes mellitus Hypertension Plan Admit the patient to [facility] [place] to the hospitalist Transfuse 2 units of packed red cells Resume home medications Continue treatment per orders. Plan discussed with: Patient My Orders Orders - BAILEE RINCON Procedure Category Date Status Time Admit ADMIT 06/29/24 Transmitted 20:06 Iron Panel LAB 06/29/24 Verified 20:15 Amlodipine Tablet PHA 06/30/24 Verified (Norvasc Tablet) 10:00 Lisinopril Tablet PHA 06/30/24 Verified (Zestril Tablet) 10:00 Stool Occult Blood LAB 06/29/24 Verified 20:15 Date of Service: Jun 29, 2024 Billing Provider: BAILEE RINCON Common Visit Codes: [id number] INP/OBS CARE (HIGH) BAILEE RINCON Jun 29, 2024 20:19
[2024-06-29 20:53] LABS: % Iron Saturation 75.1 % (15-50)
[2024-06-29] MEDS: POTASSIUM EFFERVESENT TAB 25 MEQ PO ONE (20:55)
[2024-06-30 00:01] VITALS: BP 139/96; PULSE 82; RESP 15; TEMP 98
[2024-06-30 00:43] LABS: Urine Amorphous Crystal MOD /hpf (None Seen); Urine Bacteria FEW /hpf (None Seen); Urine Blood Negative /uL (Negative); Urine Clarity Turbid (Clear); Urine Color Yellow (Yellow); Urine Mucus FEW (None Seen); Urine Protein, UAD 1+ (Negative); Urine Specific Gravity 1.018 (1.001-1.035); Urine Squamous Epithelial Cell FEW /hpf (<5); Urine Urobilinogen 4 mg/dL (Negative); Urine WBC 2 /hpf (0 - 5); Urine pH 6.5 (5.0-9.0)
[2024-06-30 06:53] LABS: Basophils # (auto) 0 10 ^3/uL (0-0.2); Eosinophils # (auto) 0.1 10 ^3/uL (0-0.8); Eosinophils % (auto) 1.2 % (0.0-7.0); Hemoglobin 8.3 g/dL (12.2-16.2); Lymphocytes # (auto) 2.1 10 ^3/uL (0.4-5.4); Mean Corpuscular Hgb Conc. 34.4 g/dL (32.0-36.0); Monocytes # (auto) 0.4 10 ^3/uL (0-1.3); Platelet Count (auto) 95 10^3/uL (140-450); White Blood Cell 7.7 10^3/uL (4.4-10.8)
[2024-06-30 06:54] LABS: Sodium 142 mmol/L (136-145)
[2024-06-30 06:55] LABS: Anion Gap 4 (5-15); Basophils % (auto) 0.3 % (0.0-2.0); Calcium 10.3 mg/dL (8.7-10.4); Carbon Dioxide 27 mmol/L (20-31); Hematocrit 24.2 % (36.0-46.0); Lymphocytes % (auto) 27.9 % (10.0-50.0); Mean Corpuscular Hemoglobin 29.4 pg (28.0-32.0); Mean Corpuscular Volume 85.4 fL (80.0-100.0); Monocytes % (auto) 5.1 % (0.0-12.0); Neutrophils % (auto) 65.5 % (37.0-80.0); Red Blood Cells 2.84 10^6/uL (4.0-5.20); Red Cell Distribution Width 17.4 % (11.8-14.3)
[2024-06-30 06:59] LABS: Chloride 111 mmol/L (98-107); Potassium 3.4 mmol/L (3.5-5.1)
[2024-06-30 07:00] LABS: Glucose 94 mg/dL (74-106)
[2024-06-30 07:27] LABS: BUN/Creatinine Ratio 20.6 (10.0-20.0); Blood Urea Nitrogen 14 mg/dL (9-23)
[2024-06-30 07:45] VITALS: PULSE 76; RESP 16; O2SAT 97
[2024-06-30] MEDS ORDERED: amLODIPine BESYLATE 5 MG TAB PO SCH (10:00)
[2024-06-30] MEDS ORDERED: LISINOPRIL 5 MG TAB PO SCH (10:00)
[2024-06-30 12:00] VITALS: BP 139/89; PULSE 79; RESP 16; TEMP 98.3; O2SAT 94
--- NOTE | 2024-06-30 13:39 | DVHPN2 ---
Reviewed: Care Plan, H&P, Labs, Medications, Previous Orders, Radiology Changes from previous H/P or p: No Changes Objective Vitals Vital Signs Date Time Temp Pulse Resp B/P (MAP) Pulse Ox O2 Delivery O2 Flow Rate FiO2 06/30/24 12:00 98.3 79 16 139/89 (106) 94 98.3 06/30/24 07:45 Room Air* 0 21 Intake/Output Intake and Output 06/30/24 07:00 Intake Total 1850 ml Output Total 30 ml Balance 1820 ml Intake Oral 0 ml Blood Product 1850 ml Output Urine Total 30 ml Medications Current Medications Medications Dose Ordered Sig/Mandi Route Start Time Stop Time Status Last Admin Dose Admin Amlodipine Besylate 10 mg DAILY PO 06/30/24 10:00 Lisinopril 5 mg DAILY PO 06/30/24 10:00 Temazepam 15 mg QHSP PRN PO 06/29/24 20:15 Ondansetron HCl 4 mg Q4HP PRN IV 06/29/24 20:15 Acetaminophen 650 mg Q6HP PRN PO 06/29/24 20:15 Laboratory Results Laboratory Tests 06/30/24 06:05 Chemistry Test 06/29/24 15:29 06/30/24 06:05 Calcium Level 10.5 mg/dL (8.7-10.4) H 10.3 mg/dL (8.7-10.4) Urinalysis Test 06/29/24 23:41 Urine Color Yellow (Yellow) Urine Clarity Turbid (Clear) H Urine pH 6.5 (5.0-9.0) Urine Specific [place] 1.018 (1.001-1.035) Urine Protein 1+ (Negative) H Urine Ketones Negative (Negative) Urine Blood Negative /uL (Negative) Urine Nitrite Negative (Negative) Urine Bilirubin Negative (Negative) Urine Urobilinogen 4 mg/dL (Negative) H Urine Leukocyte Esterase Negative /uL (Negative) Urine RBC <1 /hpf (0 - 4) Urine WBC 2 /hpf (0 - 5) Urine Squamous Epithelial Cells Few /hpf (<5) Urine Amorphous Crystals Mod /hpf (None Seen) Urine Bacteria Few /hpf (None Seen) H Urine Mucus Few (None Seen) Urine Glucose Normal mg/dL (Normal) Labs and/or images reviewed: Labs reviewed by me, Image(s) reviewed by me Assessment/Plan Assessment/Plan Acute severe symptomatic anemia hemoglobin 4.9 improved to 8.3 after 2 units RBC transfusion Chronic anemia History of monthly blood transfusions Diabetes type 2 Hypertension Hypercholesterolemia History of multiple myeloma Time spent 45 minutes Condition guarded Plan discussed with: Patient Date of Service: Jun 30, 2024 Billing Provider: ANAIS MILLER MD Common Visit Codes: [id number] INP/OBS CARE(HIGH) ANAIS MILLER MD Jun 30, 2024 13:39
--- NOTE | 2024-07-01 08:09 | DVHDS2 ---
Discharge Summary Date of Admission Jun 29, 2024 at 20:06 Date of Discharge: Jul 01, 2024 Admitting Diagnosis Generalized weakness Wounds: None Labs/Diagnostic Data: Laboratory Results Test 06/30/24 06:05 06/29/24 23:41 06/29/24 15:29 White Blood Count 7.7 10^3/uL (4.4-10.8) Red Blood Count 2.84 10^6/uL (4.0-5.20) Hemoglobin 8.3 g/dL (12.2-16.2) Hematocrit 24.2 % (36.0-46.0) Mean Corpuscular Volume 85.4 fL (80.0-100.0) Mean Corpuscular Hemoglobin 29.4 pg (28.0-32.0) Mean Corpuscular Hemoglobin Concent 34.4 g/dL (32.0-36.0) Red Cell Distribution Width 17.4 % (11.8-14.3) Platelet Count 95 10^3/uL (140-450) Mean Platelet Volume 9.0 fL (6.9-10.8) Neutrophils (%) (Auto) 65.5 % (37.0-80.0) Lymphocytes (%) (Auto) 27.9 % (10.0-50.0) Monocytes (%) (Auto) 5.1 % (0.0-12.0) Eosinophils (%) (Auto) 1.2 % (0.0-7.0) Basophils (%) (Auto) 0.3 % (0.0-2.0) Neutrophils # (Auto) 5.0 10 ^3/uL (1.6-8.6) Lymphocytes # (Auto) 2.1 10 ^3/uL (0.4-5.4) Monocytes # (Auto) 0.4 10 ^3/uL (0-1.3) Eosinophils # (Auto) 0.1 10 ^3/uL (0-0.8) Basophils # (Auto) 0 10 ^3/uL (0-0.2) Nucleated Red Blood Cells 0.0 % Sodium Level 142 mmol/L (136-145) Potassium Level 3.4 mmol/L (3.5-5.1) Chloride Level 111 mmol/L (98-107) Carbon Dioxide Level 27 mmol/L (20-31) Anion Gap 4 (5-15) Blood Urea Nitrogen 14 mg/dL (9-23) Creatinine 0.68 mg/dL (0.550-1.02) Glomerular Filtration Rate Calc 93 mL/min (>90) BUN/Creatinine Ratio 20.6 (10.0-20.0) Serum Glucose 94 mg/dL (74-106) Calcium Level 10.3 mg/dL (8.7-10.4) Urine Color Yellow (Yellow) Urine Clarity Turbid (Clear) Urine pH 6.5 (5.0-9.0) Urine Specific [place] 1.018 (1.001-1.035) Urine Protein 1+ (Negative) Urine Ketones Negative (Negative) Urine Blood Negative /uL (Negative) Urine Nitrite Negative (Negative) Urine Bilirubin Negative (Negative) Urine Urobilinogen 4 mg/dL (Negative) Urine Leukocyte Esterase Negative /uL (Negative) Urine RBC <1 /hpf (0 - 4) Urine WBC 2 /hpf (0 - 5) Urine Squamous Epithelial Cells Few /hpf (<5) Urine Amorphous Crystals Mod /hpf (None Seen) Urine Bacteria Few /hpf (None Seen) Urine Mucus Few (None Seen) Urine Glucose Normal mg/dL (Normal) Iron Level 247 ug/dL (50-170) Total Iron Binding Capacity 329 ug/dL (250-425) Percent Iron Saturation 75.1 % (15-50) Other Laboratory Tests 06/30/24 06:05 Brief Hx & Hospital Course: AMA: 69-year-old female with a long history of multiple myeloma with a recurrent multiple monthly blood transfusions hypertension diabetes hypercholesterolemia came in for generalized weakness hemoglobin 4.9 improved to 8.3 after 2 units RBC transfusion. While awaiting further stabilization the patient left against medical advice from the ER. consequences complications including possible explained to the patient and she verbalized understanding. Consults/Reason for consult None Operations or Procedures RBC transfusion Condition at Discharge: Fair Final Diagnosis/Problems List Acute severe symptomatic anemia hemoglobin 4.9 improved to 8.3 after 2 units RBC transfusion Chronic anemia History of monthly blood transfusions Diabetes type 2 Hypertension Hypercholesterolemia History of multiple myeloma Discharge Disposition: AMA Discharge Instruct/Medications Diet comment: Not applicable Patient left AMA Activity comment: Not applicable Patient left AMA Follow Up/Referral: Not applicable Patient left AMA Medications: Not applicable Patient left AMA 39 (Time taken for discharge summary 39 minutes) Discharge Statement: "Patient was advised to return to the ER or call 911 if any headaches, dizziness, shortness of breath, chest pain, abdominal pain, bleeding, fevers, or worsening of medical condition. Patient was counseled about treatment plan, medications, possible side effects, patientverbalized understanding. All questions were answered to the best of my ability. This discharge took greater then 30 minutes in planning, reviewing documentation, counseling the patient, and discussing with other team members." ASSESSMENT ASSESSMENT Hospital Course Left AMA Assessment Date of Service: Jun 30, 2024 Billing Provider: ANAIS MILLER MD Common Visit Codes: [id number] DISCH DAY >30min ANAIS MILLER MD Jul 01, 2024 08:09
== END 2024-06-30 20:00 | disposition left against medical advice (07) | DRG 812 ==
LOC: ER 14:13 → OVERFLOW 20:06 → ER 20:07 → OVERFLOW 06-30 14:30
PROVIDERS: ADMIT Family Medicine; ATTEND Family Medicine
PROC: 30233N1 Transfusion of Nonautologous Red Blood Cells into Peripheral Vein, Percutaneous Approach (ICD-10-PCS; principal; 2024-06-29)
DX: D64.9 Anemia, unspecified (principal); E11.9 Type 2 diabetes mellitus without complications; I10 Essential (primary) hypertension; Z53.29 Procedure and treatment not carried out because of patient's decision for other reasons; K21.9 Gastro-esophageal reflux disease without esophagitis; E78.00 Pure hypercholesterolemia, unspecified; Z90.710 Acquired absence of both cervix and uterus; Z79.4 Long term (current) use of insulin; Z79.899 Other long term (current) drug therapy; D63.8 Anemia in other chronic diseases classified elsewhere; Z85.79 Personal history of other malignant neoplasms of lymphoid, hematopoietic and related tissues
CPT/HCPCS: 36415; 80048; 81001; 83540; 83550; 85025; 86850; 86900; 86901; 86920; 99291; 99292; G0378